=== PATIENT | female | born 1965 | race Caucasian/White ===

== ENCOUNTER 2016-07-06 17:00 | Emergency (ER) ==
[2016-07-06] MEDS ORDERED: MBX SOLUTION MT ONE (18:23)
[2016-07-06] MEDS ORDERED: TORADOL IM ONE (18:25)
[2016-07-06] MEDS ORDERED: PHENERGAN IM ONE (18:25)
--- NOTE | 2016-07-06 18:26 | PROVIDER DOCUMENTATION ---
HPI-General Adult - General Chief Complaint: UTI Symptoms Stated Complaint: UTI SX/BLISTERS ON MOUTH Time Seen by Provider: 07/06/16 18:17 Source: patient Allergies/Adverse Reactions: Patient Allergies Allergy/AdvReac Type Severity Reaction Status Date / Time Sulfa (Sulfonamide Allergy Severe ANAPHYLAXIS Verified 05/12/16 13:49 Antibiotics) [Sulfa(Sulfonamide Antibiotics)] Home Medications: Lisinopril 10 mg PO DAILY 01/09/16 Gabapentin [Neurontin] 100 mg PO QAM 06/21/16 Omeprazole [Prilosec] 20 mg PO DAILY@0700 06/25/16 - History of Present Illness -Gen Adult Nature of Presenting Problems: 51 y/o WF having multiple complaints. States she has generalized leg pain secondary to neuropahty, uti symptoms that have come back since the last time she was here, and her mouth hurting because her teeth are broken and cutting her and states she is abusing the medications by taking her medications more than prescribed. Requesting pain medications for her neuropathy. States her pain is so bad she vomits. States uti has been going on 4 weeks on and off with dysuria. States she was given medication on 06/28/16 and given antibiotics and has not finished it. Has appt on 07/10/16 with primary, and 07/13/16 with urology. Review of Systems - Adult - REVIEW OF SYSTEMS - ADULT Constitutional: reports: see HPI, fatique. denies: chills, fever Eyes: reports: no symptoms reported. denies: blurred vision, double vision, eye pain Ears, Nose, Mouth & Throat: reports: see HPI, ear pain (right), throat pain. denies: nose pain Cardiovascular: reports: no symptoms reported. denies: chest pain, palpitations Respiratory: reports: no symptoms reported. denies: cough, shortness of breath , wheezing Gastrointestinal: reports: see HPI, nausea. denies: abdominal pain, diarrhea, vomiting Genitourinary: reports: see HPI, dysuria, frequency, frequent UTI's, urgency Musculoskeletal: reports: see HPI, muscle aches. denies: bone pain, back pain Integumentary: reports: no symptoms reported. denies: rash Neurological: reports: no symptoms reported. denies: ataxia, dizziness/vertigo , headache/migraines Psychiatric: reports: no symptoms reported Endocrine: reports: no symptoms reported Hematologic/Lymphatic: reports: no symptoms reported Allergic/Immunologic: reports: no symptoms reported All Other Systems: Reviewed and Negative Past History - Adult - PAST MEDICAL HISTORY-ADULT Review of Records: reports: Old Records Reviewed, Nursing Assessment Review, Medications Reviewed Major Childhood Illnesses: reports: denies history Cardiovascular: reports: HTN, [place] Respiratory: reports: asthma, COPD Gastrointestinal: reports: GERD, inflammatory bowel disease, ulcer Obstetrical/Gynecological: reports: ovarian cysts Genitourinary: reports: chronic UTI's Musculoskeletal: reports: chronic pain, orthopedic injury Neurological: reports: stroke deficits, Seizures/Epilepsy Psychiatric: reports: bipolar Endocrine/Immune: reports: denies history Other Conditions: reports: denies history - PRIOR SURGERIES/PROCEDURES Surgical/Procedure History: reports: cholecystectomy, BTL, , hernia repair, back/neck (back ) - PRIOR HOSPITALIZATIONS Prior Hospitalizations: reports: none - IMMUNIZATION STATUS Childhood Immunizations: See Nurse Assessment Flu Vaccine: See Nurse Assessment - FAMILY HISTORY Family History: reviewed, not pertinent Physical Exam-General - PHYSICAL EXAM-ADULT Initial Vital Signs Reviewed: Yes - CONSTITUTIONAL General Appearance: appears well, alert, no apparent distress - EYES Eyes: PERRL/EOMI, pink conjunctivae - HEAD, EARS, NOSE, MOUTH & THROAT HENMT: normocephalic/atraumatic, moist mucous membranes, normal ENT inspection, TMs normal, pharynx normal, other (has ulcer on the left side of her tongue. This has been here on previous exams) - NECK Neck: non-tender, full range of motion, supple, normal inspection. negative: lymphadenopathy - RESPIRATORY Respiratory: chest non-tender, lungs clear, normal breath sounds, no pleuratic chest pain, no respiratory distress, no accessory muscle use. negative: respiratory distress, decreased breath sounds, accessory muscle use, crackles, rales, rhonchi, wheezing - CARDIOVASCULAR Cardiovascular: normal peripheral pulses, regular rate, rhythm, no edema - LYMPHATIC Lymphatic: no adenopathy - MUSCULOSKELETAL Extremity: other (wheel chair bound) - SKIN Integumentary: normal color, normal turgor, warm/dry - NEUROLOGIC Neurologic: grossly normal, no motor/sensory deficits - PSYCHIATRIC Psych/Mental Status: normal mood/affect, normal thought content, normal thought process, oriented x 3 Progress - PLAN OF CARE/RESULTS Progress/Plan/Lab Results: Last Cr. 0.9 Vital Signs Temp Pulse Resp BP Pulse Ox 07/06/16 17:17 97.8 F 92 H 18 143/93 100 Sulfa (Sulfonamide Antibiotics) [Sulfa(Sulfonamide Antibiotics)] Allergy (Severe , Verified 05/12/16 13:49) ANAPHYLAXIS closes throat Lisinopril 10 mg PO DAILY 01/09/16 Gabapentin [Neurontin] 100 mg PO QAM 06/21/16 Omeprazole [Prilosec] 20 mg PO DAILY@0700 06/25/16 Amoxicillin [Amoxil] 500 mg PO Q8HR #30 capsule 06/26/16 Laboratory 07/06/16 19:10 Urine Source CLEAN CATCH Urine Color YELLOW Urine Clarity SL. CLOUDY A Urine pH 7.0 Ur Specific [place] 1.005 Urine Protein NEGATIVE Urine Ketones 1+(Small) A Urine Blood NEGATIVE Urine Nitrite NEGATIVE Urine Bilirubin NEGATIVE Urine Urobilinogen NORMAL Urine Microscopic RBC Not Reportable Urine WBC 2+ A Urine Microscopic WBC 10-20 A Ur Epithelial Cells <10 Urine Bacteria 1+ Urine Glucose NEGATIVE Orders Category Date Time Status URINALYSIS PL W/POSS RFLX CULT [URINALYSIS] Stat Lab 07/06/16 19:10 Completed Diphenhydramine [Benadryl Liquid] Med 07/06/16 19:29 Discontinued 12.5 mg .ROUTE .STK-MED ONE Diphenhyramine/Al&mg Oh/Lido [Mbx Solution] Med 07/06/16 18:23 Discontinued 15 ml MT NOW ONE Ketorolac [Toradol] Med 07/06/16 18:25 Discontinued 15 mg IM NOW ONE Lidocaine 2% Viscous [Xylocaine 2% Viscous] Med 07/06/16 19:29 Discontinued 15 ml .ROUTE .STK-MED ONE Mag Hydrox/Al Hydrox/Simeth [Maalox Plus Liquid] Med 07/06/16 19:29 Discontinued 30 ml .ROUTE .STK-MED ONE Promethazine [Phenergan] Med 07/06/16 18:25 Discontinued 25 mg IM NOW ONE Departure - Departure Time of Disposition Order: 19:51 DIAGNOSIS: Prescription refill Urinary tract infection Qualifiers: Urinary tract infection type: acute cystitis Hematuria presence: without hematuria Qualified Code(s): N30.00 - Acute cystitis without hematuria Chronic pain Qualifiers: Chronic pain type: chronic pain syndrome Qualified Code(s): G89.4 - Chronic pain syndrome Disposition: HOME 01 Certified Medical Emergency: Emergent Condition: Stable Additional Instructions: Follow up with your primary care physician ED Follow Up Instructions: You have been treated by a care provider in the Emergency Department. These instructions are being provided to you so you can have an understanding of how to care for yourself upon discharge. Upon discharge from the Emergency Department, you are responsible for making arrangements for follow-up care by a physician of your choice. Take all prescribed medications as directed. Return to the Emergency Department immediately for any new or worsening symptoms. You may call the Physician Referral phone number at [phone] to obtain a list of Physicians who are taking new patients. Prescriptions: Nitrofurantoin Monohyd/M-Cryst [Macrobid 100 mg Capsule] 100 mg PO BID #14 capsule Gabapentin [Neurontin] 100 mg PO QAM #14 capsule Promethazine [Phenergan] 25 mg PO Q6H PRN PRN #20 tablet PRN Reason: Nausea Montelukast Sodium [Singulair] 10 mg PO DAILY #14 tablet Albuterol Sulfate Inhaler [Ventolin Hfa] 2 puff INH Q6H PRN PRN #1 inhaler PRN Reason: Wheezing Attestation - Physician/ Mid-level Attestation Patient care was provided by Mid-level provider ([employer]/PA):: Yes Mid-level provider:: Cyndy Bhakta Mid-level documentation review:: The Mid-level provider documentation, treatment plan and medical decision making was reviewed by the physician who agrees with all treatment and medical decision making by the MLP.
[2016-07-06] MEDS ORDERED: BENADRYL LIQUID ONE (19:29)
[2016-07-06] MEDS ORDERED: MAALOX PLUS LIQUID ONE (19:29)
[2016-07-06] MEDS ORDERED: XYLOCAINE 2% VISCOUS ONE (19:29)
[2016-07-06 19:30] LABS: URINE SOURCE CLEAN CATCH
[2016-07-06 19:49] LABS: BILIRUBIN URINE NEGATIVE (NEGATIVE); BLOOD URINE NEGATIVE (NEGATIVE); CLARITY SL. CLOUDY (CLEAR); COLOR YELLOW; GLUCOSE URINE NEGATIVE (NEGATIVE); LEUKOCYTES URINE 2+ (NEGATIVE); NITRITE URINE NEGATIVE (NEGATIVE); PROTEIN URINE NEGATIVE (NEGATIVE); SP GRAVITY URINE 1.005; UROBILINOGEN URINE NORMAL
[2016-07-06 19:50] LABS: URINE CULTURE PL NEEDED? YES; URINE EPITHELIAL CELLS <10 /HPF (<10)
[2016-07-06 21:15] VITALS: BP 142/89
== END 2016-07-06 20:30 | disposition home or self-care (01) ==
LOC: P.ED 17:00
DX: N30.00 Acute cystitis without hematuria (principal); G89.4 Chronic pain syndrome; Z76.0 Encounter for issue of repeat prescription; R53.83 Other fatigue; H92.01 Otalgia, right ear; R07.0 Pain in throat; R11.0 Nausea; R30.0 Dysuria; R35.0 Frequency of micturition; R39.15 Urgency of urination; K14.0 Glossitis; Z87.440 Personal history of urinary (tract) infections; M79.1 Myalgia; I10 Essential (primary) hypertension; I25.2 Old myocardial infarction; J44.9 Chronic obstructive pulmonary disease, unspecified; K21.9 Gastro-esophageal reflux disease without esophagitis; Z87.42 Personal history of other diseases of the female genital tract; R56.9 Unspecified convulsions; F31.9 Bipolar disorder, unspecified; Z99.3 Dependence on wheelchair; I69.90 Unspecified sequelae of unspecified cerebrovascular disease; Z79.899 Other long term (current) drug therapy
CPT/HCPCS: 81001; 87088; 96372; J1885; J2550

== ENCOUNTER 2016-08-10 17:45 | Inpatient (IN) ==
--- NOTE | 2016-08-10 19:13 | PROVIDER DOCUMENTATION ---
HPI-General Adult - General Chief Complaint: Shortness of Breath Time Seen by Provider: 08/10/16 18:50 Source: patient Allergies/Adverse Reactions: Patient Allergies Allergy/AdvReac Type Severity Reaction Status Date / Time Sulfa (Sulfonamide Allergy Severe ANAPHYLAXIS Verified 07/30/16 16:17 Antibiotics) [Sulfa(Sulfonamide Antibiotics)] Home Medications: Home Medication List Medication Instructions Recorded Confirmed Last Taken Type Lisinopril 10 mg PO QAM 01/09/16 07/27/16 07/27/16 09:00 History Albuterol Sulfate Inhaler 2 puff INH Q6H PRN PRN #1 inhaler 07/06/16 07/27/16 22:00 Rx [Ventolin Hfa] Gabapentin [Neurontin] 800 mg PO TID 07/27/16 07/27/16 07/27/16 09:00 History Ibuprofen [Motrin] 800 mg PO Q8H PRN PRN #20 tablet 07/27/16 Unknown Rx Ipratropium [place] Inhaler 2 puff INH BID 07/27/16 07/27/16 Unknown History [Atrovent Hfa] Omeprazole [Prilosec] 20 mg PO DAILY@0700 #20 capsule 07/27/16 Unknown Rx Omeprazole 40 mg PO DAILY #30 capsule. 07/30/16 Unknown Rx Ondansetron Odt [Zofran 8Mg Odt] 8 mg PO Q8H PRN PRN #20 tablet 07/30/16 Unknown Rx - History of Present Illness -Gen Adult Nature of Presenting Problems: 51 year old F presents to the ED via EMS with a cc of cough, congestion, hoarseness, and shortness of breath x4 days. Pt states that she is coughing up yellow/brown sputum. PT states she began having ABD pain, nausea, and vomiting today. PT states that the last BM she had was 2 weeks ago. Location of Pain/Injury: reports: abdomen Pain Radiation: reports: no radiation Quality of Pain: reports: aching Severity: reports: mild Onset/Duration: reports: 4 days ago Timing: reports: still present Context/Activities at Onset: reports: none Modifying Factors: improves with: nothing Associated Symptoms: reports: constipation, cough, EENT symptoms, sinus congestion/drainage, nausea, shortness of breath, vomiting Similar Symptoms Previously?: No Recently seen or treated by another doctor?: No Review of Systems - Adult - REVIEW OF SYSTEMS - ADULT Constitutional: denies: chills, fever Eyes: reports: no symptoms reported Ears, Nose, Mouth & Throat: reports: sinus problem, hoarseness, throat pain. denies: ear pain Cardiovascular: denies: chest pain, palpitations Respiratory: reports: cough, excessive sputum production, shortness of breath Gastrointestinal: reports: abdominal pain, constipation, nausea, vomiting Genitourinary: denies: dysuria, hematuria Musculoskeletal: denies: muscle aches, muscle weakness Integumentary: denies: skin sores/ulcer, skin thickening Neurological: denies: dizziness/vertigo, headache/migraines Psychiatric: reports: no symptoms reported Endocrine: reports: no symptoms reported Hematologic/Lymphatic: reports: no symptoms reported Allergic/Immunologic: reports: no symptoms reported All Other Systems: Reviewed and Negative Past History - Adult - PAST MEDICAL HISTORY-ADULT Review of Records: reports: Nursing Assessment Review, Medications Reviewed Major Childhood Illnesses: reports: denies history Cardiovascular: reports: HTN, [place] Respiratory: reports: asthma, COPD Gastrointestinal: reports: GERD, inflammatory bowel disease, ulcer Obstetrical/Gynecological: reports: ovarian cysts Genitourinary: reports: chronic UTI's Musculoskeletal: reports: chronic pain, orthopedic injury Neurological: reports: CVA, stroke deficits (left arm), Seizures/Epilepsy Psychiatric: reports: bipolar, depression, ptsd, schizophrenia - PRIOR SURGERIES/PROCEDURES Surgical/Procedure History: reports: cholecystectomy, BTL, , hernia repair, back/neck (back ), other (brain sx) - IMMUNIZATION STATUS Childhood Immunizations: See Nurse Assessment Flu Vaccine: See Nurse Assessment - FAMILY HISTORY Family History: reviewed, not pertinent - SOCIAL HISTORY Smoking: cigarettes, greater than 1 pack/day Provider spent 3-5 mins advising pt. on dangers of tobacco.: Discussed manners to quit use, and f/u contacts for add'l counseling. Substance Use: none presently/history of abuse Alcohol Use Frequency: never Physical Exam-General - PHYSICAL EXAM-ADULT Initial Vital Signs Reviewed: Yes - CONSTITUTIONAL General Appearance: appears well, alert, no apparent distress - RESPIRATORY Respiratory: chest non-tender, decreased breath sounds (generalized), rhonchi ( right lower lobe) - CARDIOVASCULAR Cardiovascular: normal peripheral pulses, regular rate, rhythm, no edema - GASTROINTESTINAL (ABDOMEN) Abdominal Exam: soft, tenderness (RLQ) - MUSCULOSKELETAL Extremity: normal inspection - SKIN Integumentary: normal color, normal turgor, warm/dry - PSYCHIATRIC Psych/Mental Status: normal mood/affect, normal thought content, normal thought process, oriented x 3 Progress - PLAN OF CARE/RESULTS Progress/Plan/Lab Results: plan of care: imaging, labs, medications, EKG Orders Category Date Time Status Orthostatic Vital Signs NOW Care 08/10/16 19:16 Active Saline Loc DIRECTED Care 08/10/16 19:13 Active NPO Diet 08/10/16 19:13 Active ABDOMEN/PELVIS W/O CONTRAST [CT] Stat Exams 08/10/16 19:13 Taken CHEST-2 VIEWS [RAD] Stat Exams 08/10/16 19:14 Taken AMYLASE [CHEM] Stat Lab 08/10/16 19:45 Completed CBC WITH ELECTRONIC DIFF [HEME] Stat Lab 08/10/16 19:45 Completed CK PROFILE [SP CHEM] Stat Lab 08/10/16 19:45 Completed COMPREHENSIVE METABOLIC PANEL [CHEM] Stat Lab 08/10/16 19:45 Completed LIPASE [CHEM] Stat Lab 08/10/16 19:45 Completed TROPONIN T Stat Lab 08/10/16 19:[address] W/POSS RFLX CULT [URINALYSIS] Stat Lab 08/10/16 21:40 Completed URINE CULTURE [RM] Routine Lab 08/10/16 22:[address]UG SCREEN [address] Stat Lab 08/10/16 21:40 Completed 0.9% Sodium Chloride Inj [Ns] 1,000 ml Med 08/10/16 19:14 Discontinued IV 999 mls/hr Hydromorphone [Dilaudid] Med 08/10/16 19:14 Discontinued 1 mg IV NOW ONE Ondansetron [Zofran] Med 08/10/16 19:14 Discontinued 4 mg IV NOW ONE Pantoprazole [Protonix] Med 08/10/16 19:14 Discontinued 40 mg IV NOW ONE Sodium Chloride 0.9% Med 08/10/16 19:16 Discontinued 10 ml INJ NOW ONE EKG [EKG] Stat Ther 08/10/16 18:53 Ordered Laboratory Tests 08/10/16 08/10/16 08/10/16 19:45 19:45 19:45 WBC 17.10 H RBC 3.65 L Hgb 8.6 L Hct 27.7 L MCV 75.9 L MCH 23.6 L MCHC 31.0 L RDW Std Deviation 19.6 H Plt Count 461 H MPV 9.9 Immature Gran % (Auto) 0.4 Neut % (Auto) 91.0 H Lymph % (Auto) 3.1 L [place] % (Auto) 5.2 Eos % (Auto) 0.2 Baso % (Auto) 0.1 Immature Gran # (Auto) 0.07 H Neut # (Auto) 15.55 H Lymph # (Auto) 0.53 L [place] # (Auto) 0.89 H Eos # (Auto) 0.04 Baso # (Auto) 0.02 Sodium 125 L Potassium 2.8 L Chloride 93 L Carbon Dioxide 10 L Anion Gap 23 BUN 17 Creatinine 2.7 H Estimated GFR/1.73 m2 19 BUN/Creatinine Ratio 6 Glucose 125 H Calculated Osmolality 255 Calcium 8.7 L Total Bilirubin 0.20 AST 357 H ALT 590 H Alkaline Phosphatase 124 H Creatine Kinase 75 Troponin T Total Protein 6.8 Albumin 3.7 Globulin 3.0 Albumin/Globulin Ratio 1.0 Amylase 28 Lipase 11 L Urine Source Urine Color Urine Clarity Urine pH Ur Specific [place] Urine Protein Urine Ketones Urine Blood Urine Nitrite Urine Bilirubin Urine Urobilinogen Urine Microscopic RBC Urine WBC Urine Microscopic WBC Ur Epithelial Cells Urine Bacteria Urine Glucose Urine Opiates Screen Ur Oxycodone Screen Urine Methadone Screen Ur Barbituates Screen Ur Tricyclics Screen Ur Phencyclidine Scrn Ur Amphetamines Screen U Methamphetamines Scrn Urine MDMA Screen U Benzodiazepines Scrn Urine Cocaine Screen U Cannabinoids Screen 08/10/16 08/10/16 08/10/16 19:45 21:40 21:40 WBC RBC Hgb Hct MCV MCH MCHC RDW Std Deviation Plt Count MPV Immature Gran % (Auto) Neut % (Auto) Lymph % (Auto) [place] % (Auto) Eos % (Auto) Baso % (Auto) Immature Gran # (Auto) Neut # (Auto) Lymph # (Auto) [place] # (Auto) Eos # (Auto) Baso # (Auto) Sodium Potassium Chloride Carbon Dioxide Anion Gap BUN Creatinine Estimated GFR/1.73 m2 BUN/Creatinine Ratio Glucose Calculated Osmolality Calcium Total Bilirubin AST ALT Alkaline Phosphatase Creatine Kinase Troponin T < 0.010 Total Protein Albumin Globulin Albumin/Globulin Ratio Amylase Lipase Urine Source CATH Urine Color YELLOW Urine Clarity CLEAR Urine pH 5.0 Ur Specific [place] 1.010 Urine Protein TRACE A Urine Ketones NEGATIVE Urine Blood TRACE Urine Nitrite POSITIVE A Urine Bilirubin NEGATIVE Urine Urobilinogen NORMAL Urine Microscopic RBC <10 Urine WBC TRACE A Urine Microscopic WBC 10-20 A Ur Epithelial Cells <10 Urine Bacteria 3+ Urine Glucose NEGATIVE Urine Opiates Screen NONE DETECTED Ur Oxycodone Screen NONE DETECTED Urine Methadone Screen NONE DETECTED Ur Barbituates Screen NONE DETECTED Ur Tricyclics Screen PRESUMPTIVE POSITIVE A Ur Phencyclidine Scrn NONE DETECTED Ur Amphetamines Screen NONE DETECTED U Methamphetamines Scrn NONE DETECTED Urine MDMA Screen NONE DETECTED U Benzodiazepines Scrn NONE DETECTED Urine Cocaine Screen PRESUMPTIVE POSITIVE A U Cannabinoids Screen NONE DETECTED Vital Signs - 24 hr 08/10/16 08/10/16 08/10/16 17:47 19:58 21:50 Pulse Rate 104 H Pulse Rate [ 94 H 102 H Sitting] Pulse Rate [ 100 H 107 H Standing] Pulse Rate [ 91 H 100 H Supine] Respiratory 22 Rate Blood Pressure 101/68 Blood Pressure 107/51 91/64 [Sitting] Blood Pressure 89/69 100/74 [Standing] Blood Pressure 92/71 162/142 [Supine] O2 Sat by Pulse 100 Oximetry Pt given results. Pt will be admitted to the [facility]. PT in agreement with plan of care. - EKG 1 Time of EKG reading by physician:: 19:04 EKG Read and Signed by:: Jose Juan Acevedo EKG Interpretation (*Must complete 3 of following elements*): Abnormal Rate: 95 Rhythm: NSR [place]: normal Comments: prolonged QT - XRAY 1 XRAY Study: Chest Impression: Abnormal XRAY Interpretation: left sided pneumonia: Dr. Acevedo-NADIYA DAVID - CT/MRI 1 CT Study: Abdomen Impression: Abnormal (colonic ileus of proximal-mid colon, reason uncertain. no inflammatory changes. Otherwise NAD: Dr. Jerry) - CONSULTS/PCP/HOSPITALIST Notification #1 *Consult/PCP/Hospitalist*: Dr. Henson-hospitalist [place] Time Discussed: 22:20 Consult Disposition: Admit Departure - Departure Time of Disposition Order: 22:23 DIAGNOSIS: Pyelonephritis, Acute UTI, Hyponatremia, Abnormal laboratory test, Ileus Pneumonia Qualifiers: Pneumonia type: due to unspecified organism Laterality: left Lung location: lower lobe of lung Qualified Code(s): J18.1 - Lobar pneumonia, unspecified organism Abdominal pain Qualifiers: Abdominal location: generalized Qualified Code(s): R10.84 - Generalized abdominal pain Disposition: ADMITTED INPATIENT 09 Certified Medical Emergency: Emergent Condition: Stable Attestation - Scribe Verification/Attestation Scribe:: Raisa Mariscal Acting as Scribe for:: Jose Juan Acevedo Scribe documention review:: This chart was documented by a scribe and accurately reflects the service the provider performed and the decisions made by the provider. Physician Attestation - Physician Attestation I, the provider, attest to the following statement:: Jose Juan Acevedo Physician documentation Attestation:: This documentation recorded by the scribe accurately reflects the service I personally performed and the decisions made by me.
[2016-08-10] MEDS ORDERED: DILAUDID IV ONE (19:14)
[2016-08-10] MEDS ORDERED: PROTONIX IV ONE (19:14)
[2016-08-10] MEDS ORDERED: NS 1,000 ML IV ONE ×2 (19:14→22:26)
[2016-08-10] MEDS ORDERED: ZOFRAN IV ONE (19:14)
[2016-08-10] MEDS ORDERED: SODIUM CHLORIDE 0.9% INJ ONE (19:16)
[2016-08-10 20:01] LABS: BASO% 0.1 % (0.0-0.8); EOS# 0.04 X1000 (0.0-0.7); EOS% 0.2 % (0.0-10.0); HEMATOCRIT 27.7 % (37.0-47.0); HEMOGLOBIN 8.6 g/dL (12.0-16.0); IMM GRAN# 0.07 X1000 (0.0-0.04); IMM GRAN% 0.4 % (0.0-0.5); LYMPH# 0.53 X1000 (1.2-3.4); LYMPH% 3.1 % (20.5-51.1); MANUAL DIFF NEEDED? NO; MCH 23.6 PG (27-31); MCV 75.9 FL (81-99); MONO# 0.89 X1000 (0.11-0.59); MONO% 5.2 % (1.7-9.3); MPV 9.9 FL (7.4-10.4); PLT 461 X1000 (130-400); RBC 3.65 XMIL (4.2-5.4)
[2016-08-10 20:34] LABS: ALBUMIN 3.7 g/dL (3.5-5.0); CALCIUM 8.7 mg/dL (8.8-10.2); POTASSIUM 2.8 mmol/L (3.5-5.1); TOTAL BILIRUBIN 0.2 mg/dL (0.20-1.00); TOTAL PROTEIN 6.8 g/dL (6.3-8.3)
[2016-08-10 21:57] LABS: URINE SOURCE CATH
[2016-08-10 22:02] LABS: BILIRUBIN URINE NEGATIVE (NEGATIVE); BLOOD URINE TRACE (NEGATIVE); GLUCOSE URINE NEGATIVE (NEGATIVE); LEUKOCYTES URINE TRACE (NEGATIVE); NITRITE URINE POSITIVE (NEGATIVE); PROTEIN URINE TRACE mg/dL (NEGATIVE); UROBILINOGEN URINE NORMAL
[2016-08-10 22:03] LABS: CLARITY CLEAR (CLEAR); COLOR YELLOW
[2016-08-10 22:08] LABS: URINE CULTURE PL NEEDED? YES; URINE EPITHELIAL CELLS <10 /HPF (<10); URINE RBC <10 /HPF (<10)
[2016-08-10 22:09] LABS: UR AMPHETAMINES QUAL NONE DETECTED (NONE DETECT); UR BARBITUATES QUAL NONE DETECTED (NONE DETECT); UR BENZODIAZEPIN QUAL NONE DETECTED (NONE DETECT); UR CANNABINOIDS QUAL NONE DETECTED (NONE DETECT); UR COCAINE QUAL PRESUMPTIVE POSITIVE (NONE DETECT); UR MDMA QUAL NONE DETECTED (NONE DETECT); UR METHADONE QUAL NONE DETECTED (NONE DETECT); UR METHAMPHETAMINE QUAL NONE DETECTED (NONE DETECT); UR OPIATES QUAL NONE DETECTED (NONE DETECT); UR OXYCODONE QUAL NONE DETECTED (NONE DETECT); UR PCP QUAL NONE DETECTED (NONE DETECT); UR TCA QUAL PRESUMPTIVE POSITIVE (NONE DETECT)
[2016-08-10] MEDS ORDERED: LEVAQUIN 500 MG/D5W 100 ML IV ONE (22:26)
[2016-08-10] MEDS ORDERED: ROCEPHIN 1 GM/NS 50 ML IV ONE (22:26)
[2016-08-10] MEDS ORDERED: TYLENOL PO PRN (22:27)
--- NOTE | 2016-08-10 22:50 | Diag Imaging Result Document ---
PROCEDURE NAME: ABDOMEN/PELVIS W/O CONTRAST - 08/10/2016 CT ABDOMEN AND PELVIS: COMPARISON: 07/02/2015. FINDINGS: No radiodense renal stones or urinary obstruction. There is diffuse distention of the colon with gas and fluid and a small amount of stool. This primarily affects the proximal colon from the cecum through the descending colon. No significant wall thickening. No free air or fluid collections. The small bowel is all collapsed. Urinary bladder, uterus, and rectum are normal. Bony structures are intact. IMPRESSION: Findings favoring a colonic ileus of the proximal colon. The reason is unclear.
--- NOTE | 2016-08-11 02:31 | EKG Report ---
Test Performed on : 08/10/2016 7:04:37 PM Test Reason : CP Blood Pressure : / mmHG Vent. Rate : 095 BPM Atrial Rate : 095 BPM P-R Int : 182 ms QRS Dur : 094 ms QT Int : 408 ms P-R-T Axes : 044 033 058 degrees QTc Int : 512 ms Normal sinus rhythm. Prolonged QT Abnormal ECG When compared with ECG of 24-JUN-2016 23:53, Nonspecific T wave abnormality no longer evident in Anterior leads QT has lengthened Unconfirmed Result
[2016-08-11] MEDS: BLISTEX MEDICATED BERRY LIP BALM TOP PRN (03:24)
[2016-08-11] MEDS: DUONEB (A & A) INH SCH ×6 (04:01→23:25)
[2016-08-11] MEDS ORDERED: NS 1,000 ML IV SCH (08:45)
[2016-08-11] MEDS: ZOFRAN IV PRN (10:00)
[2016-08-11] MEDS ORDERED: ZITHROMAX 500 MG/NS 250 ML IV SCH (11:15)
[2016-08-11] MEDS: NS 1,000 ML IV SCH ×2 (11:40→22:49)
--- NOTE | 2016-08-11 12:07 | Diag Imaging Result Document ---
PROCEDURE NAME: CHEST-2 VIEWS - 08/10/2016 CHEST X-RAY, 2 VIEWS: COMPARISON: 01/09/2016. FINDINGS: Lung volumes are severely low with some central crowding. No obvious infiltrates. Heart size is normal. IMPRESSION: Low lung volumes.
--- NOTE | 2016-08-11 12:12 | Diag Imaging Result Document ---
PROCEDURE NAME: JONATHAN ABDOMEN - 08/11/2016 X-RAY ABDOMEN: COMPARISON: 07/30/2016. FINDINGS: There is a nasogastric tube in good position in the left upper quadrant. There is diffuse gas dilation of the colon, suggesting ileus. No small bowel obstruction or free air. IMPRESSION: Colonic ileus. Good nasogastric tube placement.
[2016-08-11 12:20] LABS: HEMATOCRIT 21.2 % (37.0-47.0); HEMOGLOBIN 6.5 g/dL (12.0-16.0); MCHC 30.7 g/dL (33-37); MCV 75.2 FL (81-99); MPV 10.1 FL (7.4-10.4); RBC 2.82 XMIL (4.2-5.4)
[2016-08-11 13:21] LABS: AGAP 18; ALBUMIN 2.6 g/dL (3.5-5.0); ALKALINE PHOSPHATASE 103 U/L (32-104); BUN 20 mg/dL (8-22); CALCIUM 7.1 mg/dL (8.8-10.2); CHLORIDE 103 mmol/L (98-107); COSMO 263; GOT 100 U/L (10-30); GPT 347 U/L (10-36); MAGNESIUM 2.4 mg/dL (1.5-2.7); POTASSIUM 2.5 mmol/L (3.5-5.1); SODIUM 130 mmol/L (136-145); TCO2 9 mmol/L (25-35); TOTAL BILIRUBIN < 0.15 mg/dL (0.20-1.00); TOTAL PROTEIN 4.6 g/dL (6.3-8.3)
[2016-08-11] MEDS: POTASSIUM CHLORIDE 20 MEQ/SWI 100 ML IV SCH ×2 (14:20→16:13)
--- NOTE | 2016-08-11 14:35 | HISTORY AND PHYSICAL ---
CHIEF COMPLAINT: Shortness of breath, nausea and vomiting for 3 days. HISTORY OF PRESENT ILLNESS: This is a 51-year-old female with a prior history of hypertension, COPD, reflux, cocaine abuse, and medical noncompliance. She presented to the emergency room complaining of 3 days of nausea and vomiting, cough and congestion. She did state that during this time that she developed a productive cough with yellow and brown sputum. She complained of abdominal pain, described it as an aching type pain. She denied any hematemesis, black or bloody stools. CT of the abdomen and pelvis revealed findings colonic of the proximal colon. She was found have a white count of 17, with a sodium of 125, a potassium 2.8, creatinine of 2.7, as well as a drug screen positive for cocaine. In the emergency room she was given 2 L of saline bolus, Dilaudid, Protonix for pain relief which she documented did relieve her pain, as well as Levaquin and Rocephin. Admitted for further evaluation and treatment. PAST MEDICAL HISTORY: 1. Cocaine use. 2. Bipolar disorder. 3. Hypertension. 4. Chronic obstructive pulmonary disease. 5. Gastroesophageal reflux disease. 6. Prior history of cerebrovascular accident. 7. Medical noncompliance. 8. Tobacco use. PAST SURGICAL HISTORY: Cholecystectomy, , back surgery, and hernia repair. SOCIAL HISTORY: She lives alone. She smokes a pack a day. She uses cocaine daily. ALLERGIES: Bactrim and sulfa which cause anaphylaxis. HOME MEDICATIONS: A list will be obtained. REVIEW OF SYSTEMS: A 14 point review of systems is discussed with the patient with pertinent positives stated in HPI. She denied any chest pain, palpitations, dizziness, syncope, black or bloody vomitus, black or bloody stools, diarrhea, constipation, hematuria, dysuria. PHYSICAL EXAMINATION: GENERAL: This is a 51-year-old female who is lying in the bed with no distress. VITAL SIGNS: Blood pressure is 83/53, with a heart rate of 98, respirations are 19, temperature is 98.4 degrees, with room air saturations 98%. HEENT: Head is normocephalic, atraumatic. Pupils equal, round, react to light. EOMS are intact. Sclerae are anicteric. Mucous membranes are moist. NECK: Supple with trachea midline. CARDIOVASCULAR: Regular rate and rhythm. S1 and S2 appreciated. PULMONARY: She does have some rhonchi scattered throughout with decreased breath sounds. No increased work of breathing is noted. GASTROINTESTINAL: Abdomen is soft, nontender, with bowel sounds in all 4 quadrants. NG tube is intact. MUSCULOSKELETAL: Good range of motion of joints. NEUROLOGIC: She is alert and oriented x3. EXTREMITIES: No clubbing, cyanosis, or edema. SKIN: Warm and dry. LABS: CBC, CMP, magnesium are pending. ASSESSMENT: 1. Colonic ileus. 2. Left lower lobe pneumonia. 3. Urinary tract infection with possible pyelonephritis. 4. Hyponatremia. 5. Leukocytosis. 6. Hypokalemia. 7. Acute kidney injury. 8. Elevated liver function tests. 9. Cocaine use positive on drug screen. 10. Hypertension. 11. History of chronic obstructive pulmonary disease with continued tobacco use. 12. Bipolar disorder. PLAN: 1. She will be admitted to ICU and placed on telemetry. We will give supplemental oxygen with gentle hydration. We will trend labs. Urine culture was obtained in the emergency room. If blood cultures were not obtained they will be drawn. We will continue antibiotic coverage. We will identify home medications and continue as appropriate. We will check a KUB. The patient does have bowel sounds. She is passing gas. Her abdomen is nontender. If there is no obstruction we will allow her to have liquids in advance. 2. I did talk to the patient, discussed smoking cessation with perils of continued smoking as well as offered ways to assist her to stop, and at this time she states she has no intention of stopping. 3. We did discuss cessation of cocaine and she states she has no intention of stopping. She is on DuoNeb q.4 hours, we will add q.2 hours p.r.n., and follow. Dictated by PREETI Gaines for Darron Henson MD
[2016-08-11] MEDS ORDERED: NS 500 ML IV ONE (16:27)
[2016-08-11 19:47] LABS: HEMATOCRIT 27.4 % (37.0-47.0); MCH 24.6 PG (27-31); MCHC 32.8 g/dL (33-37); MCV 74.9 FL (81-99); MPV 9.9 FL (7.4-10.4); RBC 3.66 XMIL (4.2-5.4)
[2016-08-11 20:26] LABS: ALBUMIN 2.4 g/dL (3.5-5.0); CALCIUM 7.1 mg/dL (8.8-10.2); POTASSIUM 2.6 mmol/L (3.5-5.1); TOTAL BILIRUBIN 0.3 mg/dL (0.20-1.00); TOTAL PROTEIN 5.7 g/dL (6.3-8.3)
[2016-08-11] MEDS ORDERED: LEVAQUIN 500 MG/D5W 100 ML IV SCH (23:00)
[2016-08-12] MEDS: DUONEB (A & A) INH SCH ×6 (03:14→23:37)
[2016-08-12] MEDS: MORPHINE IV PRN ×4 (03:29→21:14)
[2016-08-12] MEDS: NS 1,000 ML IV SCH (07:45)
[2016-08-12 08:18] LABS: HEMATOCRIT 24.1 % (37.0-47.0); HEMOGLOBIN 7.9 g/dL (12.0-16.0); MCH 24.5 PG (27-31); MCHC 32.8 g/dL (33-37); MCV 74.6 FL (81-99); MPV 9.8 FL (7.4-10.4); RBC 3.23 XMIL (4.2-5.4)
[2016-08-12 08:30] LABS: ALBUMIN 2.4 g/dL (3.5-5.0); POTASSIUM 2.8 mmol/L (3.5-5.1); TOTAL BILIRUBIN 0.26 mg/dL (0.20-1.00); TOTAL PROTEIN 4.9 g/dL (6.3-8.3)
[2016-08-12 08:41] LABS: CALCIUM 6.6 mg/dL (8.8-10.2)
[2016-08-12] MEDS: POTASSIUM CHLORIDE 20 MEQ/SWI 100 ML IV SCH ×4 (09:08→19:25)
[2016-08-12 09:40] LABS: ALLEN TEST YES; BLOOD TYPE ARTERIAL; DRAW SITE L RADIAL; METHB 1.6 % (0.0-1.5); O2(CT) 9.9 mL/dL (15.0-23.0); PO2(98.6) 52 mmHg (60-100); SAMPLE BLOOD; SAO2 87.6 % (95.0-100.0); THB 8.1 g/dL (11.5-17.4); pH(98.6) 7.31 (7.35-7.45)
[2016-08-12 09:41] LABS: MODALITY ROOM AIR
[2016-08-12 09:42] LABS: PCO2(98.6) 19 mmHg (35-45)
[2016-08-12 09:52] LABS: ACETONE SERUM NEGATIVE (NEGATIVE)
[2016-08-12 09:54] LABS: IRON SATURATION 5 %; TIBC 189 ug/dL
[2016-08-12 09:57] LABS: TOTAL IRON 9 ug/dL (49-151); UNBOUND IRON 180 ug/dL (112-346)
--- NOTE | 2016-08-12 10:12 | Diag Imaging Result Document ---
PROCEDURE NAME: CHEST-PORTABLE - 08/12/2016 PORTABLE CHEST X-RAY, 08/12/2016: COMPARISON: 08/10/2016. FINDINGS: There is a nasogastric tube with the tip in the stomach. There are dense bilateral infiltrates, right greater than left. Heart size is probably top normal. IMPRESSION: 1. Good nasogastric tube placement. 2. Dense bilateral infiltrates.
[2016-08-12] MEDS ORDERED: VANCOMYCIN IV PER PHARMACY MISC SCH (10:15)
[2016-08-12 10:25] LABS: INR 1.2; PROTIME 12.7 Seconds (9.2-11.7)
[2016-08-12] MEDS ORDERED: CALCIUM GLUCONATE 2 GM in NS 100 ML IV ONE (10:30)
[2016-08-12 11:11] LABS: ACETAMINOPHEN < 1.2 ug/mL (10-30)
[2016-08-12] MEDS: SODIUM BICARBONATE 8.4% 150 MEQ in D5W 1,000 ML IV SCH (11:34)
--- NOTE | 2016-08-12 12:57 | PROGRESS NOTE ---
DATE: 08/12/2016 SUBJECTIVE: This morning, Ms. Bernard referred to be having a lot of pain in her abdomen. Briefly Ms. Bernard was transferred from [facility] to this campus after presenting with generalized abdominal pain, shortness of breath, nausea, and vomiting. The patient was evaluated over there. A CT scan of the abdomen and pelvis which was done showed colonic ileus of the proximal colon and etiology was unclear. She was brought in for further higher medical care. Of note the patient did have blood pressures running in the low 90s and even in the 80s to 60s for some time. OBJECTIVE: Vital signs: Now blood pressure is 117/77, pulse of 105, respirations 20, temperature is 97.6 degrees. General: Ms. Bernard is a 51-year-old female. She was in bed. She was slightly tachypneic. HEENT: Mucosa slightly dry. Anicteric. Acyanotic. Patient has very poor dentition. Neck: Supple. Chest: Air entry is bilaterally reduced. There are a few bibasilar crepitations. Cardiovascular: Tachycardic but no murmur. No rubs. No gallops. Abdomen: Soft. Generally distended. Bowel sounds are decreased. I did not appreciate any hepatosplenomegaly. Extremities: No pedal edema. Central Nervous System: Patient is alert, seems to be oriented to person and to place and time. There is not any focal neurological deficit. LABORATORY DATA: WBC is 8.55, hemoglobin is 7.9, platelet count of 74.6. Sodium is 137, potassium is 2.8, chloride is 113, bicarb is 10 with a gap of 14, creatinine is 1.2, calcium is 6.6. AST is down to 43, ALT is 231, alkaline phosphatase of 106. UDS was positive for tricyclics and cocaine. IMAGING STUDIES: 1. CT scan of the abdomen and pelvis showed colonic ileus of the proximal colon. 2. Chest x-ray which was done on presentation showed low lung volumes. 3. An abdominal x-ray done this morning shows colonic ileus. ASSESSMENT: Ms. Bernard is a 51-year-old, female who seems to be drug dependent with polysubstance abuse. The patient presented with abdominal pain to [facility] and was transferred over here because of being critically sick. 1. Abdominal pain with colonic distention, unsure the etiology. With the level of the acidosis that the patient has, I am kind of suspicious for an ischemic colitis. We will consult Surgery to evaluate the patient as well. 2. Microcytic anemia. Hemoglobin and hematocrit continued to worsen. Patient was transfused 1 PRBC and will wait to do iron studies on pre transfusion sample to see what is her iron reserves. 3. High anion gap metabolic acidosis on presentation, unclear of the source. We are now going to do the workup for this, however, the gap is now closed I guess because she has been given normal saline. She is now still acidotic by no gap. We are therefore going to switch the fluid to D5 with bicarbonate . 4. Acute kidney injury secondary to dehydration. 5. Hypotension on presentation. The patient did run multiple numbers being hypotensive in [facility]. I think some of it could be just septic versus colonic fluid sequestration (3rd spacing) versus dehydration. We are going to be addressing each one of these possibilities. 6. Transaminitis, etiology is unclear. I think probably there is an ischemic component to this. Will continue trending the numbers. GENERAL PLAN: I have stopped the azithromycin and the levofloxacin and put her on Zosyn for broader coverage and also anaerobe coverage as well. We are going to consult surgery to review the imaging of the abdomen to make sure there is not any surgical abdomen. The patient will also be seen by GI. I have ordered an NG tube to be placed for GI decompression. Patient's numbers look very critical. We are going to be reviewing her later on today and make further recommendations. CRITICAL TIME SPENT: 60 minutes.
[2016-08-12] MEDS ORDERED: VANCOMYCIN 1.6 GM in NS 250 ML IV ONE (13:00)
[2016-08-12] MEDS ORDERED: NS 250 ML ONE (13:05)
[2016-08-12] MEDS ORDERED: DULCOLAX PR ONE (13:47)
[2016-08-12] MEDS: ZOSYN 3.375 GM/NS 50 ML IV SCH ×2 (14:33→20:15)
[2016-08-12] MEDS: ZOFRAN IV PRN (15:53)
--- NOTE | 2016-08-12 17:06 | CONSULTATION ---
DATE OF CONSULTATION: 08/12/2016 REASON FOR CONSULTATION: Abdominal pain and distention. HISTORY OF PRESENT ILLNESS: The patient is a poor historian, but from chart review and questioning the patient, she reports a 2 year history of abdominal pain that has gotten worse over the last week or so. She has had multiple episodes of nausea and vomiting and increased abdominal pain. No exacerbating or relieving factors. She reports some blood in her stool at times. She also has had recent cough, shortness of breath and congestion. Further workup since admission has revealed pneumonia on chest x-ray. She also has a urinalysis suggestive of UTI, although her urine culture has not had any growth. She has had imaging documenting fairly diffuse colonic distention, although the rectum appears to be normal. There is no small bowel obstruction, free air, abscess or diverticulitis. She is quite acidotic and we are asked to evaluate her for possible intra-abdominal source of her sepsis. PAST MEDICAL HISTORY: Bipolar disorder, cocaine use, chronic obstructive pulmonary disease, gastroesophageal reflux disease, hypertension, history of stroke, tobacco abuse. PAST SURGICAL HISTORY: Laparoscopic cholecystectomy. . Back surgery. Hernia repair. SOCIAL HISTORY: She smokes and uses cocaine daily. ALLERGIES: Bactrim. FAMILY HISTORY: Noncontributory. REVIEW OF SYSTEMS: Ten systems reviewed and negative except as noted above. HOME MEDICATIONS: Albuterol inhaler, Neurontin, Zofran, Desyrel, Singulair, Reglan, Phenergan, Motrin and Prilosec. CURRENT MEDICATIONS: Vancomycin, Zosyn, sodium bicarb and albuterol/ipratropium. PHYSICAL EXAMINATION: Vital Signs: Temperature 98 degrees, pulse 104, respirations 23, blood pressure 110/71, O2 saturation 90%. General: Somewhat disheveled-appearing female who looks poorly nourished, in no acute distress. HEENT: Normocephalic, atraumatic. Extraocular muscles intact. Pupils equal, round, reactive to light. Sclerae anicteric. She has poor dentition. Mucous membranes are dry. Neck: Supple. No thyromegaly. CARDIOVASCULAR: Slightly tachycardic. Respiratory: Bilateral breath sounds. No increased work of breathing. There is some rhonchi bilaterally. GI: Soft, mildly distended and tympanic. She is moderately tender diffusely. No organomegaly or masses appreciated. No hernias appreciated. No rebound or guarding appreciated. Extremities: No clubbing, cyanosis, or edema. Skin: Warm and dry. No rash. Musculoskeletal: Moves all extremities equally and well. LABORATORY: White blood cell count 17,000, on admission, now 8.5. Hemoglobin 8.6 on admission, now 7.9. She has had 1 unit of blood transfused since admission. Platelet count 281,000. ABG this morning, pH 7.3, pCO2 19, PaO2 15, bicarb 13, base deficit 15, lactate 0.8, sodium 137, potassium 2.8, chloride 113, CO2 10, BUN 17, creatinine 1.2, glucose 88, calcium 6.6, AST 43, ALT 231, alkaline phosphatase 106, albumin 2.4, lactate 1.3. IMAGING: As described above in HPI. ASSESSMENT/PLAN: A 51-year-old female with diffuse abdominal pain, recent nausea and vomiting, colonic distention and possibly rectal bleeding and anemia. The source of her current illness is unclear. She may have urinary tract infection as well as pneumonia. She has some colonic distention which is ill-defined at this point. I doubt she has any ischemic gut given her normal lactate. I think she has volume loss with hypokalemia and hypochloremia which would exacerbate a metabolic acidosis. Dr. Palacios is to see the patient and I think a colonoscopy would be useful to rule out obstruction as well as ischemia. I am available as needed and will follow along.
[2016-08-12 17:20] LABS: AGAP 13; BUN 14 mg/dL (8-22); CHLORIDE 117 mmol/L (98-107); COSMO 282; SODIUM 141 mmol/L (136-145); TCO2 11 mmol/L (25-35)
[2016-08-12 17:23] LABS: CALCIUM 6.3 mg/dL (8.8-10.2); POTASSIUM 2.4 mmol/L (3.5-5.1)
--- NOTE | 2016-08-12 17:38 | CONSULTATION ---
DATE OF CONSULTATION: 08/12/2016 CONSULTING PHYSICIAN: Dr. Chou. REASON FOR CONSULT: Abdominal pain. HISTORY OF PRESENT ILLNESS: This is a 51-year-old white female with multiple medical issues. She was transferred from [facility] where she presented with abdominal pain, nausea, vomiting, and shortness of breath. She has a history of gastroesophageal reflux disease and complains of abdominal pain off and on for the past few days. She has not been able to identify as to the factor that brings abdominal pain. Sometimes it sharp and sometimes cramp like. She reports some worsening of pain after eating. She has been nauseated and has had some emesis. She complains of constipation. She has bowel movements every week or sometimes 2 weeks. She takes over-the- counter laxatives and stool softeners for her bowel movements. Her pain has progressively gotten worse, to the point that she had to come to the emergency room. She denies any hematemesis or coffee-ground emesis. She has not noticed any blood or mucus in her stool. Denies any melena. She has not had any fever or chills but has been complaining of generalized body aches. She has had some headache but denies any dizziness or double vision. Denies any sore throat or sores in her mouth prior to hospitalization, but since her NG-tube has been placed she has complained of feeling as if she is choking. She has complained of a dry mouth and wanted to have some ice chips now. She has had some cough without any hemoptysis. She denies any dysuria, polyuria, or hematuria. She has had a problem with drugs. She has been doing cocaine. In fact, her drug screen from her hospitalization shows positive for cocaine. PAST MEDICAL HISTORY: Significant for gastroesophageal reflux disease, history of hypertension, COPD, history of CVA with residual left-sided weakness, bipolar disorder. PAST SURGICAL HISTORY: She has had multiple back surgeries, , cholecystectomy, and herniorrhaphy. MEDICATIONS: Prior to her hospitalization she has been on Desyrel, Phenergan, Singulair, Reglan, Ventolin, Motrin, Neurontin, Zofran, and Prilosec. ALLERGIES: Claims she is allergic to sulfa medication. Has had some anaphylactic reaction to it. SOCIAL HISTORY: She lives by herself. Smokes 1 pack per day. She tells me she smokes cocaine daily. FAMILY HISTORY: Noncontributory. REVIEW OF SYSTEMS: As per HPI as above. PHYSICAL EXAMINATION: General: This is a middle-aged white female. She is lying in bed. Appears to be in some distress. Complaining of sore throat and feeling of dry mouth. Vital signs: Temperature is 98.2 degree Fahrenheit. She is tachycardic. Her heart rate ranges from 104-105 per minute, breathing rate of 23-25 per minute, blood pressure 110/71. She is 177 pounds and 5 feet 5 inches tall. HEENT: Head is atraumatic, normocephalic. Eyes: Conjunctivae normal. Sclerae anicteric. Nares have an NG tube in place which is draining just clear liquid. Very scant amount of liquid present in the canister. Mouth: Buccal mucosa is dry. She has poor oral hygiene. Neck: Supple. No lymphadenopathy or thyromegaly. Chest: Bilaterally symmetrical. It is moving with respirations. Breath sounds audible bilaterally. She is a little tachypneic. Heart: S1, S2 audible. No murmur could be appreciated. Abdomen: Full. It is soft but tender. She has mild tenderness diffusely but she has positive rebound tenderness but no guarding noted. Bowel sounds are sluggish. Extremities: No pedal edema, cyanosis, or clubbing was noted. 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 No sensory deficit noted but she has left-sided weakness. LABS: Reviewed which show WBC of 8.55 which on the 10th it was 17.10. Hemoglobin today is 7.9 with hematocrit 24.1, MCV 74.6, with platelets of 281,000. PT 12.7, INR 1.2. Her pH was 7.31 with pCO2 of 19, PO2 52, with normal lactate. Sodium 137, potassium 2.8, chloride 113, bicarb 10, BUN 17, creatinine 1.2, calcium 6.6, with albumin 2.4, corrected calcium is 7.9. AST is 43, ALT 231, alkaline phosphatase 106, with total bilirubin of 0.26. CT scan of the abdomen and pelvis was essentially showing dilated colon. Otherwise no other pathology seen. IMPRESSION AND PLAN: This is a 51-year-old white female who presented with abdominal pain, nausea, and vomiting. She has imaging studies suggestive of colonic inertia or ileus. She is hypokalemic and has metabolic acidosis along with microcytic anemia, elevated LFTs, with a history of cocaine abuse and presented with positive cocaine in the urine. There is a possibility of vascular injury from her cocaine resulting in multiorgan hit including liver, kidney, as well as bowels. However, infectious etiology is also a possibility. She has improved to some degree that her nausea and vomiting is better, NG tube is not draining much, and she is in the process of getting potassium replenished. I will give her a Dulcolax suppository and see if that stimulates her bowel and she can get rid of the air that is trapped in her colon once her potassium is corrected. Depending on the response from there, further plans will be made. Other than the rebound tenderness, not much there to suggest acute abdomen or infarction or ischemic injury to the bowels. Her lactate levels are normal but she has metabolic acidosis. Not sure about the etiology there. Again, continue symptomatic treatment. Continue supportive care. Further plans will be made according to the progress.
[2016-08-13] MEDS: SODIUM BICARBONATE 8.4% 150 MEQ in D5W 1,000 ML IV SCH ×3 (00:46→23:29)
[2016-08-13] MEDS: ZOSYN 3.375 GM/NS 50 ML IV SCH ×4 (01:39→20:37)
[2016-08-13 02:19] LABS: ALLEN TEST YES; BE -9.5 mmoll (-3.0-3.0); BLOOD TYPE ARTERIAL; DRAW SITE R RADIAL; METHB 1.3 % (0.0-1.5); PCO2(98.6) 29 mmHg (35-45); SAMPLE BLOOD; SAO2 84.5 % (95.0-100.0); THB 9.4 g/dL (11.5-17.4); pH(98.6) 7.33 (7.35-7.45)
[2016-08-13 02:20] LABS: PO2(98.6) 49 mmHg (60-100)
[2016-08-13 02:21] LABS: MODALITY NRB
[2016-08-13] MEDS: DUONEB (A & A) INH SCH ×6 (02:45→23:40)
[2016-08-13] MEDS: MORPHINE IV PRN ×4 (02:57→20:12)
[2016-08-13 05:41] LABS: HEMOGLOBIN 8.1 g/dL (12.0-16.0); MCH 24.8 PG (27-31); MCHC 33.8 g/dL (33-37); MCV 73.6 FL (81-99); MPV 10.6 FL (7.4-10.4); RBC 3.26 XMIL (4.2-5.4)
[2016-08-13 05:52] LABS: AGAP 12; ALBUMIN 2.1 g/dL (3.5-5.0); ALKALINE PHOSPHATASE 144 U/L (32-104); BUN 12 mg/dL (8-22); CALCIUM 7.1 mg/dL (8.8-10.2); CHLORIDE 110 mmol/L (98-107); COSMO 281; GOT 36 U/L (10-30); GPT 141 U/L (10-36); POTASSIUM 2.8 mmol/L (3.5-5.1); SODIUM 140 mmol/L (136-145); TCO2 18 mmol/L (25-35); TOTAL BILIRUBIN 0.36 mg/dL (0.20-1.00); TOTAL PROTEIN 4.7 g/dL (6.3-8.3)
--- NOTE | 2016-08-13 08:09 | Diag Imaging Result Document ---
PROCEDURE NAME: CHEST-PORTABLE - 08/13/2016 AP PORTABLE CHEST: TIME: 0500 hours. FINDINGS: There is an NG tube with its tip below the diaphragm. There is a PICC line on the right with its tip in the right atrium. There is alveolar and interstitial pulmonary edema particularly in the lung apices and the left base. This was not present on 08/10/2016. IMPRESSION: Pulmonary edema.
[2016-08-13] MEDS ORDERED: MAGNESIUM SULFATE 2 GM/S.W.I. 50 ML IV ONE (08:39)
[2016-08-13] MEDS: POTASSIUM CHLORIDE 20 MEQ/SWI 100 ML IV SCH ×2 (09:22→10:49)
--- NOTE | 2016-08-13 11:08 | Diag Imaging Result Document ---
PROCEDURE NAME: JONATHAN ABDOMEN - 08/13/2016 KUB: FINDINGS: There is an NG tube with its tip in the stomach. There is much less colonic gas than on 08/11/2016. There is still some stool in the rectum. IMPRESSION: Improved colonic dilatation.
--- NOTE | 2016-08-13 11:25 | PROGRESS NOTE ---
DATE: 08/13/2016 SUBJECTIVE: Today Ms. Bernard referred to be doing okay. I understand she was having significant desaturation yesterday and had to be placed under the BiPAP. OBJECTIVE: Vital Signs: Stable. Blood pressure is 144/87, pulse of 101, respirations 27 temperature is 98.7 degrees. General: Mr. Ms. casas is a 51-year-old female. She is in bed. She did not seem to be in any distress. HEENT: Mucosa is pink and moist. Anicteric. Acyanotic. Neck: Supple. Chest: Air entry is bilaterally reduced. There is diffuse bilateral crepitations. Cardiovascular: Regular rate and rhythm. Abdomen: Soft, nondistended. Bowel sounds are present. Extremities: No pedal edema. 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 There is mild left- sided weakness which was there due to previous stroke. The patient has bilateral corneal mild opacification bilaterally. LABORATORY DATA: WBC is 16.38, hemoglobin is 8.1, platelet count of 233. Chemistry: Sodium is 140, potassium is 2.8, chloride is 110, bicarb is 18, creatinine is 0.9, resolved, calcium is 7.1. AST is 36, improved. ALT is 141, improving. ASSESSMENT: 1. Abdominal pain with colonic distention, unsure etiology. It looks to be just a huge ileus. We are concerned for ischemic colitis. However, lactic acid was completely normal. Patient's abdominal distention seems to be doing a whole lot better. Clinically there is very minimal NG tube drainage. We will going to do a KUB to follow up. If the distention is improved will probably be able to start the patient on clear liquids today. 2. Microcytic anemia with iron deficiency. Patient got PRBC transfused which might have restored her iron stores. In the uncertainty of possible infection, I would withhold giving her any iron. 3. High anion gap metabolic acidosis on presentation. This has improved. 4. Acute kidney injury, resolved. 5. Hypotension on presentation. Not quite sure of the etiology. We suspect possible sepsis versus fluid sequestration through the colonic distention versus dehydration. Blood pressure is a whole lot better. The patient did not need any pressors. 6. Transaminitis. Etiology is unclear but it is improving. Hepatitis panel was sent. Tylenol level was unremarkable. I think this is probably due to ischemic hepatopathy from the hypotension when patient was critically sick. 7. Aspiration pneumonia. Chest x-ray shows bilateral infiltrate and patient is getting hypoxemic. She is currently on BiPAP. The patient has been started on antibiotics. We plan to continue also with nebulizations. Will follow up tomorrow with a chest x- ray. GENERAL PLAN: The patient is relatively stable. We are going to do a KUB to look at the colonic distention. If it is improved, we will start the patient on clear liquids. For today we will continue the she will continue with the bicarb and D5 infusion and replace all the electrolyte abnormalities. We will also continue the BiPAP use at least for another 24 hours to improved her oxygenation needs from the severe aspiration pneumonia. W[facility]CK[facility]IGHT[facility] MEDICAL CENTERKostas
[2016-08-13] MEDS: ATIVAN IV PRN ×3 (11:44→23:36)
[2016-08-13] MEDS: VANCOMYCIN 1.3 GM in NS 250 ML IV SCH (13:10)
[2016-08-13 13:36] LABS: HEPATITIS PROFILE ACUTE SEE COMMENTS (())
[2016-08-13 21:05] LABS: ALLEN TEST YES; BE 0.1 mmoll (-3.0-3.0); BLOOD TYPE ARTERIAL; DRAW SITE R RADIAL; PCO2(98.6) 34 mmHg (35-45); PO2(98.6) 135 mmHg (60-100); SAMPLE BLOOD; pH(98.6) 7.45 (7.35-7.45)
[2016-08-13 21:07] LABS: MODALITY BI PAP
[2016-08-13] MEDS ORDERED: MORPHINE IV ONE (22:20)
[2016-08-14] MEDS: ZOSYN 3.375 GM/NS 50 ML IV SCH ×4 (01:31→21:03)
[2016-08-14] MEDS: MORPHINE IV PRN ×7 (01:31→23:03)
[2016-08-14] MEDS: DUONEB (A & A) INH SCH ×6 (03:46→23:50)
[2016-08-14 04:51] LABS: ALLEN TEST YES; BE 1.5 mmoll (-3.0-3.0); BLOOD TYPE ARTERIAL; DRAW SITE R RADIAL; PCO2(98.6) 39 mmHg (35-45); PO2(98.6) 68 mmHg (60-100); SAMPLE BLOOD; pH(98.6) 7.43 (7.35-7.45)
[2016-08-14 04:53] LABS: MODALITY BI PAP
[2016-08-14 06:07] LABS: HEMATOCRIT 22.6 % (37.0-47.0); HEMOGLOBIN 7.6 g/dL (12.0-16.0); MCH 24.8 PG (27-31); MCHC 33.6 g/dL (33-37); MCV 73.9 FL (81-99); MPV 10.8 FL (7.4-10.4); RBC 3.06 XMIL (4.2-5.4)
[2016-08-14 06:15] LABS: AGAP 11; ALBUMIN 1.9 g/dL (3.5-5.0); ALKALINE PHOSPHATASE 176 U/L (32-104); BUN 9 mg/dL (8-22); CALCIUM 7.3 mg/dL (8.8-10.2); CHLORIDE 110 mmol/L (98-107); COSMO 288; GOT 21 U/L (10-30); GPT 96 U/L (10-36); POTASSIUM 2.6 mmol/L (3.5-5.1); SODIUM 145 mmol/L (136-145); TCO2 24 mmol/L (25-35); TOTAL BILIRUBIN 0.57 mg/dL (0.20-1.00); TOTAL PROTEIN 4.7 g/dL (6.3-8.3)
--- NOTE | 2016-08-14 07:31 | Diag Imaging Result Document ---
PROCEDURE NAME: CHEST-PORTABLE - 08/14/2016 PORTABLE CHEST X-RAY: COMPARISON: 08/13/2016. FINDINGS: Stable right PICC line and nasogastric tube in good position. Stable diffuse bilateral mixed, predominantly interstitial infiltrates. Heart size remains top normal. IMPRESSION: No change from prior.
[2016-08-14] MEDS ORDERED: POTASSIUM CHLORIDE 40 MEQ/SWI 100 ML IV ONE ×2 (07:52→14:00)
[2016-08-14] MEDS ORDERED: MAGNESIUM SULFATE 2 GM/S.W.I. 50 ML IV ONE (07:53)
--- NOTE | 2016-08-14 08:30 | PROGRESS NOTE ---
DATE: 08/14/2016 SUBJECTIVE: This is a 51-year-old who was admitted on 08/11/[address] Robbi Henson. She came over from [place] presenting with shortness of breath, nausea, and vomiting for 3 days. A 51-year- old female with prior history of hypertension, COPD, reflux, cocaine abuse, and medical noncompliance. She presented to the emergency room complaining of 3-day history of nausea, vomiting, cough, and congestion. She did state that in this time she developed productive cough with yellow-brown sputum. She complained of abdominal pain described as aching-type pain. She denied any hemoptysis, black or bloody stools. CT of the abdomen and pelvis revealed ileus, I guess, of the proximal colon. Found to have a white count of 17,000. Sodium was 125, potassium 2.8 and creatinine 2.7, as well as a drug screen positive for cocaine. She got a 2 L saline bolus, Dilaudid, and Protonix. PAST MEDICAL HISTORY: 1. Cocaine use. 2. Bipolar disorder. 3. Hypertension. 4. Chronic obstructive pulmonary disease. 5. Gastroesophageal reflux disease. 6. Prior history of cerebrovascular accident. 7. Medical noncompliance. 8. Tobacco use. PAST SURGICAL HISTORY: 1. Status post cholecystectomy. 2. section. 3. Hernia repair. PHYSICAL EXAMINATION: She is on BiPAP. She is moving all extremities. Restless requiring restraint. They are giving her morphine and Ativan. Morphine seems to work a little brother for sedation. Temperature 97.2 degrees, pulse 99, respirations 34, blood pressure 131/106. Pupils are equal. CVP less than 6 cm. Lungs are clear anterior lateral, and she is moving air bilateral, but she does have scattered rhonchi and tachypnea. Rapid respiratory rate. Abdomen soft. Skin is warm and dry. Urine output 1600 mL. LABORATORIES: From today, white count elevated 23,070. Hematocrit 22, platelet count 192,000. Sodium 145, potassium 2.6. Chloride 110. BUN 9, creatinine 0.8, calcium 7.3. AST is 21, ALT is 96. Alkaline phos 176, albumin 4.7. Also, a chest x-ray from this morning - no change from prior, stable. Right PICC line and nasogastric tube in good position. Stable diffuse bilateral mixed predominantly interstitial infiltrates. Heart size was normal. ASSESSMENT AND PLAN: 1. Abdominal pain. Colonic distention. Unsure of etiology. Looks to be a huge ileus. Concerned for ischemic colitis. However, lactic acid was completely normal. The patient's abdominal distention seems to be better. Very minimal NG tube drainage. This seems to be improving. 2. Macrocytic anemia. Iron deficiency. She got transfused some packed red blood cells, and I have restored her iron stores (possible infection; I will withhold giving her some iron now). 3. High anion gap. Metabolic acidosis on presentation has improved. 4. Acute kidney injury, resolved. 5. Hypotension on presentation. Not sure of etiology. Suspect sepsis versus fluid sequestration to the colon. Distention versus dehydration. Blood pressure a lot better. 6. Transaminitis, etiologies unclear. Hepatitis panel was sent. Tylenol level unremarkable. This may be due to ischemic hepatopathy or hypotension. The patient was critically sick. 7. Aspiration pneumonia. Chest x-ray shows bilateral infiltrate and was hypoxemic. White count is going up. Currently on BiPAP. She has been on some antibiotics. REVIEW OF ORDERS: She is on vancomycin 1.3 g q. 24 hours. She is on Zosyn 3.375 mg IV q.6 hours. She is on D5 water with bicarb 150 mEq 100 mL an hour. Getting Ativan and morphine for sedation. Dr. Palacios is involved. Dr. Banks is involved. We will see how the respiratory status does. We may need to look at left ventricular function.
[2016-08-14] MEDS: SODIUM BICARBONATE 8.4% 150 MEQ in D5W 1,000 ML IV SCH (11:45)
[2016-08-14] MEDS: ATIVAN IV PRN ×2 (11:46→21:04)
[2016-08-14] MEDS: VANCOMYCIN 1.3 GM in NS 250 ML IV SCH (13:12)
[2016-08-14] MEDS ORDERED: ATIVAN IV PRN (13:54)
[2016-08-14 16:15] LABS: BLOOD TYPE ARTERIAL; SAMPLE BLOOD
[2016-08-14 16:20] LABS: ALLEN TEST YES; BE 6.3 mmoll (-3.0-3.0); DRAW SITE L RADIAL; METHB 1.2 % (0.0-1.5); O2(CT) 11.7 mL/dL (15.0-23.0); PCO2(98.6) 42 mmHg (35-45); PO2(98.6) 58 mmHg (60-100); SAO2 91.6 % (95.0-100.0); THB 9.2 g/dL (11.5-17.4); pH(98.6) 7.47 (7.35-7.45)
[2016-08-14 16:21] LABS: MODALITY BI PAP
[2016-08-14] MEDS ORDERED: DIPRIVAN 1% 100 ML ONE (16:41)
[2016-08-14] MEDS ORDERED: DIPRIVAN 1% 100 ML IV SCH (17:15)
[2016-08-14] MEDS ORDERED: LEVOPHED 8 MG in D5 1/2 NS 250 ML IV SCH (18:15)
[2016-08-14] MEDS: NS 1,000 ML IV SCH (23:04)
[2016-08-15] MEDS: MORPHINE IV PRN ×7 (02:06→22:21)
[2016-08-15] MEDS: ZOSYN 3.375 GM/NS 50 ML IV SCH ×4 (02:06→20:06)
[2016-08-15] MEDS: DUONEB (A & A) INH SCH ×6 (04:15→23:53)
[2016-08-15] MEDS: ATIVAN IV PRN ×7 (04:49→23:16)
[2016-08-15 05:21] LABS: ALLEN TEST YES; BE 5.4 mmoll (-3.0-3.0); BLOOD TYPE ARTERIAL; DRAW SITE R RADIAL; METHB 1.1 % (0.0-1.5); O2(CT) 10.9 mL/dL (15.0-23.0); PCO2(98.6) 47 mmHg (35-45); PO2(98.6) 73 mmHg (60-100); SAMPLE BLOOD; SAO2 92.5 % (95.0-100.0); SRATE 12 BPM; THB 8.4 g/dL (11.5-17.4); TVOL 20 mL; pH(98.6) 7.42 (7.35-7.45)
[2016-08-15 05:22] LABS: MODALITY VENTILATOR
[2016-08-15 06:14] LABS: BASO% 0.3 % (0.0-0.8); EOS# 0.55 X1000 (0.0-0.7); EOS% 3.5 % (0.0-10.0); HEMATOCRIT 22.5 % (37.0-47.0); HEMOGLOBIN 7.2 g/dL (12.0-16.0); IMM GRAN# 0.07 X1000 (0.0-0.04); IMM GRAN% 0.5 % (0.0-0.5); LYMPH# 1.86 X1000 (1.2-3.4); MANUAL DIFF NEEDED? YES; MCH 23.9 PG (27-31); MCV 74.8 FL (81-99); MONO# 1.26 X1000 (0.11-0.59); MONO% 8.1 % (1.7-9.3); MPV 10.9 FL (7.4-10.4); NEUT% 75.6 % (42.2-75.2); PLT 134 X1000 (130-400); RBC 3.01 XMIL (4.2-5.4)
[2016-08-15 06:25] LABS: AGAP 13; ALKALINE PHOSPHATASE 159 U/L (32-104); BUN 9 mg/dL (8-22); CALCIUM 7.2 mg/dL (8.8-10.2); CHLORIDE 111 mmol/L (98-107); COSMO 295; GOT 16 U/L (10-30); GPT 64 U/L (10-36); MAGNESIUM 2.6 mg/dL (1.5-2.7); POTASSIUM 2.9 mmol/L (3.5-5.1); SODIUM 149 mmol/L (136-145); TCO2 25 mmol/L (25-35); TOTAL BILIRUBIN 0.56 mg/dL (0.20-1.00); TOTAL PROTEIN 4.8 g/dL (6.3-8.3)
[2016-08-15 06:41] LABS: BANDS 4 % (0-1); EOS 6 % (1-10); LYMPHS 20 % (21-51); MONO 4 % (1-9)
[2016-08-15 06:42] LABS: HYPOCHROM 1+
--- NOTE | 2016-08-15 07:47 | Diag Imaging Result Document ---
PROCEDURE NAME: CHEST-PORTABLE - 08/15/2016 SINGLE FRONTAL RADIOGRAPH OF THE CHEST: COMPARISON: 08/14/2016. FINDINGS: ET tube is in stable position. NG tube projects below the diaphragm and out of the field of view. Right PICC line is stable. There are diffuse bilateral infiltrates. Given differences in exposure and inspiration, they are approximately stable. No new consolidations are identified. Cardiac silhouette is stable. IMPRESSION: Grossly stable chest.
[2016-08-15] MEDS: PROTONIX IV SCH (08:06)
[2016-08-15] MEDS: POTASSIUM CHLORIDE 20% LIQUID PO SCH ×4 (08:07→20:06)
[2016-08-15] MEDS: SODIUM CHLORIDE 0.9% INJ SCH (08:07)
[2016-08-15] MEDS: NS 1,000 ML IV SCH (08:08)
--- NOTE | 2016-08-15 08:31 | Diag Imaging Result Document ---
PROCEDURE NAME: CHEST-PORTABLE - 08/14/2016 SINGLE FRONTAL RADIOGRAPH OF THE CHEST: COMPARISON: 08/14/2016. FINDINGS: There is a newly placed ET tube. The tip projects over the trachea and above the edy at about the T3 level. There are diffuse bilateral infiltrates suggesting pulmonary edema. They appear to have worsened during the interval. An NG tube projects below the diaphragm and out of the field of view. Cardiac silhouette is stable. IMPRESSION: Interval placement of ET tube as described and worsened infiltrates bilaterally.
--- NOTE | 2016-08-15 09:47 | PROGRESS NOTE ---
DATE: 08/15/2016 SUBJECTIVE: Ms. Bernard had to be intubated yesterday. CO2 retention and respiratory failure. Suspect cocaine withdrawal. OBJECTIVE: Temperature 97.6 degrees, pulse 93, respirations 20, blood pressure 101/73. Lungs are clear in all lung lee anterior lateral. Cardiovascular: Regular rhythm and rate without murmur or S3. Abdomen is soft. Skin is warm and dry. Urine output was 1500 mL. LABORATORY DATA: Lab from this morning has come down. White count 15,550. Hematocrit 22, platelet count 134,000. Sodium 149, potassium 2.9, chloride 111, bicarb 25. BUN 9, creatinine 0.9, magnesium is 2.6. Transaminases are coming down to 64. Her AST and ALT 159. Albumin 2.0 Chest x-ray: Grossly stable chest. ET tube in position. NG tube projects below the diaphragm out of the field of view. Right PICC line is stable. Diffuse bilateral infiltrates. ASSESSMENT AND PLAN: 1. Abdominal pain, colonic distention, unsure of etiology. It looks like a large ileus. Initially, there was concern for ischemic colitis; however, lactic acid was normal. Suspicion for cocaine withdrawal. 2. Microcytic anemia, iron deficiency. She was given some packed red blood cells. Her hematocrit appears to be stable. No sign of active bleeding. 3. High anion gap metabolic acidosis, which has improved. 4. Acute kidney injury which is improved. Her urine output is improved. 5. Hypertension. Questionable sepsis versus fluid sequestration in the colon. Blood pressure is improving. 6. Transaminitis. Hepatitis panel was sent. 7. Aspiration pneumonia. Continue present antibiotics. 8. Respiratory failure. She had to be intubated and required quite a bit of benzodiazepines for her encephalopathy, confusion, and delirium and suspect drug withdrawal. She is on Zosyn 3.375 mg q.6. She is on vancomycin 1.3 g q. 24 hours. Supplement: We gave her some potassium which she is going to get q. 4. I think Dr. Álvarez ordered 40 mEq q.4 hours.
--- NOTE | 2016-08-15 11:28 | CONSULTATION ---
DATE OF CONSULTATION: 08/15/2016 REFERRING PHYSICIAN: Dr. Jordy Gonzalez. CHIEF COMPLAINT: Shortness of breath. HISTORY OF PRESENT ILLNESS: This is a 51-year-old female with past medical history of hypertension, COPD, GERD, CVA, tobacco abuse, cocaine abuse, bipolar disorder who arrived at the hospital originally complaining of shortness of breath and nausea and vomiting. She did describe of productive cough with yellow and brown sputum as well as abdominal pain described as aching. Further investigation revealed significant ileus. She has also had a white count of 17,000. Hyponatremic and hypokalemic with some renal failure and positive for cocaine. She is now intubated in the ICU. REVIEW OF SYSTEMS: Unable to obtain secondary to patient's current status. PAST MEDICAL HISTORY: As mentioned in HPI, otherwise, noncontributory. PAST SURGICAL HISTORY: Cholecystectomy. hernia repair. SOCIAL HISTORY: The patient lives at home. Smokes approximately 1 pack per day of cigarettes. She uses cocaine daily. ALLERGIES: Bactrim and sulfa. FAMILY HISTORY: Noncontributory. ACTIVE MEDICATIONS: 1. DuoNeb. 2. Ativan. 3. Vancomycin. 4. Morphine. 5. Levophed. 6. Zofran. 7. Protonix. 8. Zosyn. PHYSICAL EXAMINATION: VITAL SIGNS: Temperature 97.6, heart rate 97, respiratory rate 20, blood pressure 101/73, oxygen saturation 97%. GENERAL: Lying on an ICU stretcher, intubated, sedated with morphine and Ativan. No acute distress. HEENT: Normocephalic, atraumatic. ET tube in place. CARDIOVASCULAR: S1, S2 present. CHEST: Reduced entry. ABDOMEN: Soft and slightly distended. Bowel sounds present. EXTREMITIES: No edema. SKIN: Warm and dry. NEURO: Sedated. LABS AND INVESTIGATIONS: WBC 15.5, RBC 3, hemoglobin 7, hematocrit 22. Platelet count 134,000. Sodium 149, potassium 2.9, chloride 111, carbon dioxide 25, anion gap 13. BUN 9, creatinine 0.8, glucose 295. Blood gas reveals a pH 7.42, pCO2 of 47, pO2 of 73, HC03 of 29.1, base excess 5.4, saturated oxygen 93. Chest x-ray performed on shows stable chest. ASSESSMENT AND PLAN: This is a 51-year-old female with past medical history mentioned in the history of present illness who presented to the hospital initially with complaints of cough and abdominal pain. She was found to have an ileus, electrolyte imbalance, respiratory failure, macrocytic anemia, hypotension, transaminitis and aspiration pneumonia. She is now intubated in the ICU receiving IV antibiotics, inhaled bronchodilators, vasopressors for her hypotension, electrolyte replacement, and GI prophylaxis. Further recommendations pending diagnostic studies. Thank you for the courtesy of this consult. Dictated by PREETI Cohen for Leigh Ann Álvarez MD
[2016-08-15] MEDS: VANCOMYCIN 1,600 MG in NS 250 ML IV SCH (14:16)
[2016-08-16] MEDS: MORPHINE IV PRN ×6 (00:24→21:45)
[2016-08-16] MEDS: ZOSYN 3.375 GM/NS 50 ML IV SCH ×4 (01:07→19:25)
[2016-08-16] MEDS: ATIVAN IV PRN ×6 (01:07→22:32)
[2016-08-16] MEDS: DUONEB (A & A) INH SCH ×6 (02:55→22:56)
[2016-08-16 04:33] LABS: ALLEN TEST YES; BE 0.2 mmoll (-3.0-3.0); BLOOD TYPE ARTERIAL; DRAW SITE R RADIAL; METHB 0.4 % (0.0-1.5); O2(CT) 11.1 mL/dL (15.0-23.0); PCO2(98.6) 38 mmHg (35-45); PO2(98.6) 75 mmHg (60-100); SAMPLE BLOOD; SAO2 94.4 % (95.0-100.0); SRATE 14 BPM; THB 8.4 g/dL (11.5-17.4); pH(98.6) 7.42 (7.35-7.45)
[2016-08-16 04:34] LABS: MODALITY VENTILATOR
[2016-08-16 05:25] LABS: BASO% 0.5 % (0.0-0.8); EOS# 0.54 X1000 (0.0-0.7); EOS% 5.1 % (0.0-10.0); HEMATOCRIT 22.8 % (37.0-47.0); HEMOGLOBIN 7.1 g/dL (12.0-16.0); IMM GRAN# 0.07 X1000 (0.0-0.04); IMM GRAN% 0.7 % (0.0-0.5); LYMPH# 1.78 X1000 (1.2-3.4); LYMPH% 16.8 % (20.5-51.1); MANUAL DIFF NEEDED? NO; MCH 24.1 PG (27-31); MCHC 31.1 g/dL (33-37); MCV 77.6 FL (81-99); MONO# 0.89 X1000 (0.11-0.59); MONO% 8.4 % (1.7-9.3); MPV 10.7 FL (7.4-10.4); NEUT% 68.5 % (42.2-75.2); PLT 122 X1000 (130-400); RBC 2.94 XMIL (4.2-5.4)
[2016-08-16 06:09] LABS: AGAP 10; ALKALINE PHOSPHATASE 144 U/L (32-104); BUN 8 mg/dL (8-22); CALCIUM 7.5 mg/dL (8.8-10.2); CHLORIDE 119 mmol/L (98-107); COSMO 299; GOT 13 U/L (10-30); GPT 47 U/L (10-36); POTASSIUM 4.1 mmol/L (3.5-5.1); SODIUM 152 mmol/L (136-145); TCO2 23 mmol/L (25-35); TOTAL BILIRUBIN 0.45 mg/dL (0.20-1.00); TOTAL PROTEIN 5.1 g/dL (6.3-8.3)
--- NOTE | 2016-08-16 06:29 | Diag Imaging Result Document ---
PROCEDURE NAME: CHEST-PORTABLE - 08/16/2016 PORTABLE CHEST: COMPARISON: Compared to 08/15/2016. FINDINGS: No change in the position of the endotracheal tube, the nasogastric tube, or in the right-sided PICC line. There are diffuse bilateral infiltrates. These may be slightly less dense than on the prior exam. No pleural effusions identified. IMPRESSION: Questionable mild interval improvement .
[2016-08-16] MEDS: PROTONIX IV SCH (07:20)
[2016-08-16] MEDS: SODIUM CHLORIDE 0.9% INJ SCH (07:20)
[2016-08-16] MEDS ORDERED: LASIX IV ONE (09:30)
[2016-08-16] MEDS ORDERED: D5 1/2 NS + KCL 20 MEQ 1,000 ML IV SCH (09:30)
--- NOTE | 2016-08-16 10:29 | PROGRESS NOTE ---
DATE: 08/16/2016 SUBJECTIVE: Ms. Bernard is still on the ventilator. She required sedation. PHYSICAL EXAMINATION: Vital Signs: Temperature 97.3 degrees, pulse 93, respirations 14, blood pressure 113/77. HEENT: Pupils are equal. CVP less than 6 cm. Lungs: Clear anterolateral. Cardiovascular Examination: Regular rhythm and rate without murmur or S3. Abdomen: Soft. Skin: Warm and dry. Is and Os: Urine output is actually over 1300 mL. LABORATORY DATA: White count 10,610 which is down, hematocrit is 22, platelet count is 122,000. Sodium 152, potassium 4.1, chloride 119, bicarb 23, BUN 8, creatinine 0.9. Liver enzymes: Transaminase is coming down, AST 47, ALT 144. Chest x-ray: Questionable mild interval improvement, slightly less dense bilateral infiltrates. ASSESSMENT AND PLAN: 1. A 51-year-old with a past medical history that initially presented with complaints of cough, abdominal pain, and found to have ileus, electrolyte imbalance, respiratory failure, macrocytic anemia, hypotension, transaminitis, and aspiration pneumonia. Intubated. Wean as able. 2. See if we can start some tube feeding with Jevity. She needs some nutrition. 3. Positive for cocaine on admission. 4. Review of her orders. She is on vancomycin and on Zosyn. I do not see any other change at this time.
[2016-08-16 11:50] LABS: PREALBUMIN 3.1 mg/dL (20-40)
[2016-08-16 11:51] LABS: MAGNESIUM 2.4 mg/dL (1.5-2.7)
[2016-08-16] MEDS: VANCOMYCIN 1,600 MG in NS 250 ML IV SCH (13:00)
[2016-08-17] MEDS: MORPHINE IV PRN ×6 (00:44→22:30)
[2016-08-17] MEDS: ZOSYN 3.375 GM/NS 50 ML IV SCH ×4 (01:06→21:22)
[2016-08-17] MEDS: ATIVAN IV PRN ×8 (01:24→21:35)
[2016-08-17] MEDS: TYLENOL PO PRN (01:27)
[2016-08-17] MEDS: DUONEB (A & A) INH SCH ×6 (03:15→23:07)
[2016-08-17 04:53] LABS: BASO% 0.9 % (0.0-0.8); EOS# 0.44 X1000 (0.0-0.7); EOS% 4.2 % (0.0-10.0); HEMATOCRIT 23.7 % (37.0-47.0); HEMOGLOBIN 7.2 g/dL (12.0-16.0); IMM GRAN# 0.04 X1000 (0.0-0.04); IMM GRAN% 0.4 % (0.0-0.5); LYMPH# 2.27 X1000 (1.2-3.4); LYMPH% 21.5 % (20.5-51.1); MANUAL DIFF NEEDED? YES; MCH 23.9 PG (27-31); MCHC 30.4 g/dL (33-37); MCV 78.7 FL (81-99); MONO# 0.75 X1000 (0.11-0.59); MONO% 7.1 % (1.7-9.3); NEUT% 65.9 % (42.2-75.2); PLT 135 X1000 (130-400); RBC 3.01 XMIL (4.2-5.4)
[2016-08-17 04:58] LABS: ALLEN TEST YES; BE 4.2 mmoll (-3.0-3.0); BLOOD TYPE ARTERIAL; DRAW SITE R RADIAL; METHB 1.4 % (0.0-1.5); O2(CT) 10.1 mL/dL (15.0-23.0); PCO2(98.6) 40 mmHg (35-45); PO2(98.6) 96 mmHg (60-100); SAMPLE BLOOD; SAO2 95.7 % (95.0-100.0); SRATE 14 BPM; THB 7.5 g/dL (11.5-17.4); pH(98.6) 7.46 (7.35-7.45)
[2016-08-17 04:59] LABS: MODALITY VENTILATOR
[2016-08-17 05:12] LABS: MAGNESIUM 2.1 mg/dL (1.5-2.7)
[2016-08-17 05:15] LABS: ALBUMIN 1.9 g/dL (3.5-5.0); CALCIUM 7.8 mg/dL (8.8-10.2); POTASSIUM 3.8 mmol/L (3.5-5.1); TOTAL BILIRUBIN 0.36 mg/dL (0.20-1.00); TOTAL PROTEIN 5.3 g/dL (6.3-8.3)
[2016-08-17 06:59] LABS: BANDS 6 % (0-1); EOS 10 % (1-10); LYMPHS 10 % (21-51); MONO 4 % (1-9)
[2016-08-17 07:00] LABS: HYPOCHROM 2+; TARGET CELLS 1+
[2016-08-17] MEDS: SODIUM CHLORIDE 0.9% INJ SCH (08:07)
[2016-08-17] MEDS: PROTONIX IV SCH (08:07)
[2016-08-17] MEDS: LASIX IV SCH ×3 (08:08→21:24)
--- NOTE | 2016-08-17 08:29 | Diag Imaging Result Document ---
PROCEDURE NAME: CHEST-PORTABLE - 08/17/2016 PORTABLE CHEST X-RAY: COMPARISON: 08/16/2016. FINDINGS: Support lines and tubes are stable. There is improvement in the diffuse bilateral central and basilar interstitial infiltrates/edema. No new consolidation. IMPRESSION: Improvement from prior.
--- NOTE | 2016-08-17 08:43 | PROGRESS NOTE ---
DATE: 08/17/2016 She appears comfortable. She has an NG feeding tube in, still intubated. PHYSICAL EXAMINATION: Temp 98.7 degrees, pulse 100, respirations 13, blood pressure 103/80.HEENT: Pupils are equal and round. CVP less than 6 cm. Lungs: Clear in all lung lee. Cardiovascular: Regular rhythm and rate without murmur or S3. Abdomen: Soft. Skin: Warm and dry. Urine output was 3400 mL. LABORATORY: White count 86335, hematocrit 23, platelet count 135,000, chemistry sodium 153, potassium 3.8, chloride 115, BUN 10, creatinine 1.2. Liver functions unremarkable. Albumin 1.9, chest x-ray from yesterday questionable mild interval improvement. Diffuse bilateral infiltrates. Maybe slightly less than the x-ray yesterday. ASSESSMENT AND PLAN: 1. A 51-year-old female with past medical history. In addition, presented with complaints of cough abdominal pain, found to have an ileus, electrolyte imbalance, respiratory failure, microcytic anemia, hypotension, transaminase, transaminitis, and aspiration pneumonia. Intubated. X-ray radiographically appears to be improving, clinically appears to be improving. Continue to try to wean down off of the ventilator. 2. Nutrition, getting NG feeding. 3. History of positive cocaine on admission. She is on vancomycin and Zosyn which we will continue. Review of her orders, I do not see any change on Lasix 40 mg IV daily, vancomycin 1600 mg IV q.24 hours, Protonix 40 mg IV q.24 hours, Zosyn which is 3.375 mg q.6 hours.
[2016-08-17] MEDS: D5W 1,000 ML IV SCH (12:11)
[2016-08-17] MEDS: ALBUMIN 25% IV SCH ×2 (12:38→21:22)
[2016-08-17] MEDS: VANCOMYCIN 1,600 MG in NS 250 ML IV SCH (13:20)
[2016-08-17] MEDS ORDERED: LACRI-LUBE OPH OINT BOTH EYES PRN (21:38)
[2016-08-18] MEDS: MORPHINE IV PRN ×6 (02:13→20:41)
[2016-08-18] MEDS: ATIVAN IV PRN ×6 (02:13→20:42)
[2016-08-18] MEDS: ZOSYN 3.375 GM/NS 50 ML IV SCH ×4 (02:14→20:42)
[2016-08-18] MEDS: D5W 1,000 ML IV SCH ×2 (02:15→18:00)
[2016-08-18] MEDS: DUONEB (A & A) INH SCH ×6 (03:10→22:29)
[2016-08-18 04:41] LABS: ALLEN TEST YES; BE 15.4 mmoll (-3.0-3.0); BLOOD TYPE ARTERIAL; DRAW SITE R RADIAL; METHB 1.2 % (0.0-1.5); O2(CT) 13.9 mL/dL (15.0-23.0); PO2(98.6) 81 mmHg (60-100); SAMPLE BLOOD; SAO2 93.7 % (95.0-100.0); SRATE 2 BPM; THB 10.6 g/dL (11.5-17.4); TVOL 500 mL
[2016-08-18 04:42] LABS: MODALITY VENTILATOR; PCO2(98.6) 52 mmHg (35-45)
[2016-08-18 05:07] LABS: BASO% 0.6 % (0.0-0.8); EOS# 0.47 X1000 (0.0-0.7); EOS% 4.3 % (0.0-10.0); HEMATOCRIT 24.4 % (37.0-47.0); HEMOGLOBIN 7.4 g/dL (12.0-16.0); IMM GRAN# 0.02 X1000 (0.0-0.04); IMM GRAN% 0.2 % (0.0-0.5); LYMPH% 19.3 % (20.5-51.1); MANUAL DIFF NEEDED? YES; MCHC 30.3 g/dL (33-37); MCV 79.2 FL (81-99); MONO# 0.48 X1000 (0.11-0.59); MONO% 4.4 % (1.7-9.3); NEUT% 71.2 % (42.2-75.2); PLT 146 X1000 (130-400); RBC 3.08 XMIL (4.2-5.4)
[2016-08-18 05:09] LABS: MAGNESIUM 1.7 mg/dL (1.5-2.7)
[2016-08-18 05:20] LABS: ALBUMIN 3.1 g/dL (3.5-5.0); POTASSIUM 2.8 mmol/L (3.5-5.1); TOTAL BILIRUBIN 0.49 mg/dL (0.20-1.00); TOTAL PROTEIN 6.4 g/dL (6.3-8.3)
[2016-08-18 07:01] LABS: BANDS 2 % (0-1); EOS 4 % (1-10); LYMPHS 21 % (21-51); MONO 5 % (1-9); TARGET CELLS OCCASIONAL
[2016-08-18] MEDS: PROTONIX IV SCH (07:42)
[2016-08-18] MEDS: SODIUM CHLORIDE 0.9% INJ SCH (07:42)
--- NOTE | 2016-08-18 08:52 | Diag Imaging Result Document ---
PROCEDURE NAME: CHEST-PORTABLE - 08/18/2016 SINGLE FRONTAL RADIOGRAPH OF THE CHEST: COMPARISON: 08/17/2016. FINDINGS: ET tube is in stable position. NG tube projects below the diaphragm and out of the field of view. Right PICC line is stable. Diffuse bilateral infiltrates, likely representing edema, plus or minus pneumonia, is unchanged. No new consolidation is identified. Cardiac silhouette is stable. IMPRESSION: Stable chest.
[2016-08-18] MEDS: LASIX IV SCH ×2 (09:05→16:48)
[2016-08-18] MEDS ORDERED: POTASSIUM CHLORIDE 40 MEQ/SWI 100 ML IV ONE ×2 (09:25→16:00)
--- NOTE | 2016-08-18 11:29 | PROGRESS NOTE ---
DATE: 08/18/2016 SUBJECTIVE: Still on the ventilator, appears comfortable, NG tube feeding going in. OBJECTIVE: Temperature is 98.8, pulse 96, respirations 18, blood pressure 101/69. Lungs are clear in all lung lee anterolateral. Cardiovascular: Regular rate and rhythm without murmur or S3. Abdomen: Soft. Skin is warm and dry. Urine output was over 4 L. DIAGNOSTIC DATA: White count is 10,860, hematocrit 24, platelet count 146,000. Sodium is 151, potassium 2.8, chloride 102, bicarb 34, BUN is 10, creatinine 1.2, albumin 3.1. Note that chest x- ray was done this morning, stable chest, ET tube in good position, NG tube projects below the diaphragm PICC line is stable. No consolidations identified. Bilateral infiltrates, plus or minus pneumonia. ASSESSMENT AND PLAN: 1. This is a 51 year old with respiratory failure, bilateral infiltrates, treating for bilateral pneumonia. She did present with what appeared to be an ileus. 2. NG feeding in place, tolerating. Advance as we can. 3. History of positive cocaine on her drug screen on admission. Continue to try to wean off the ventilator. She is continued on Lasix 40 mg IV daily. She is getting D5 at 70 mL an hour. We will supplement potassium. She is on Zosyn. We will continue that for now. Protonix 40 mg daily. She is also on vancomycin.
[2016-08-18] MEDS: TYLENOL PO PRN (12:19)
[2016-08-19] MEDS: ATIVAN IV PRN ×8 (00:35→22:10)
[2016-08-19] MEDS: MORPHINE IV PRN ×7 (00:36→21:06)
[2016-08-19] MEDS: LASIX IV SCH ×2 (02:00→09:07)
[2016-08-19] MEDS: ZOSYN 3.375 GM/NS 50 ML IV SCH ×4 (02:01→20:26)
[2016-08-19] MEDS: DUONEB (A & A) INH SCH ×6 (03:09→22:37)
[2016-08-19 04:43] LABS: ALLEN TEST YES; BE 11.5 mmoll (-3.0-3.0); BLOOD TYPE ARTERIAL; DRAW SITE R RADIAL; PCO2(98.6) 48 mmHg (35-45); PO2(98.6) 120 mmHg (60-100); SAMPLE BLOOD; SAO2 95.9 % (95.0-100.0); SRATE 12 BPM; THB 14.1 g/dL (11.5-17.4); TVOL 500 mL; pH(98.6) 7.49 (7.35-7.45)
[2016-08-19 04:44] LABS: MODALITY VENTILATOR
[2016-08-19 05:49] LABS: MANUAL DIFF NEEDED? NO
[2016-08-19 05:52] LABS: BASO% 0.6 % (0.0-0.8); EOS# 0.38 X1000 (0.0-0.7); EOS% 3.2 % (0.0-10.0); HEMATOCRIT 26.1 % (37.0-47.0); IMM GRAN# 0.02 X1000 (0.0-0.04); IMM GRAN% 0.2 % (0.0-0.5); LYMPH# 1.69 X1000 (1.2-3.4); LYMPH% 14.1 % (20.5-51.1); MCH 24.5 PG (27-31); MCHC 30.7 g/dL (33-37); MCV 80.1 FL (81-99); MONO# 0.45 X1000 (0.11-0.59); MONO% 3.7 % (1.7-9.3); MPV 12.6 FL (7.4-10.4); NEUT% 78.2 % (42.2-75.2); PLT 172 X1000 (130-400); RBC 3.26 XMIL (4.2-5.4)
[2016-08-19 06:21] LABS: ALBUMIN 2.6 g/dL (3.5-5.0); CALCIUM 8.2 mg/dL (8.8-10.2); POTASSIUM 3.4 mmol/L (3.5-5.1); RANDOM VANCOMYCIN 14.7 ug/mL (5.0-80); TOTAL BILIRUBIN 0.42 mg/dL (0.20-1.00); TOTAL PROTEIN 6.6 g/dL (6.3-8.3)
[2016-08-19] MEDS: D5W 1,000 ML IV SCH ×2 (06:22→20:27)
[2016-08-19] MEDS: PROTONIX IV SCH (07:35)
[2016-08-19] MEDS: SODIUM CHLORIDE 0.9% INJ SCH (07:37)
[2016-08-19] MEDS ORDERED: POTASSIUM CHLORIDE 40 MEQ/SWI 100 ML IV ONE (07:53)
--- NOTE | 2016-08-19 08:47 | PROGRESS NOTE ---
DATE: 08/19/2016 SUBJECTIVE: Ms. Bernard is moving all extremities. She is much stronger. Still requires sedation and restraint. Still intubated. OBJECTIVE: Vital signs: Temp 97.2 degrees, pulse 90, respirations 20, blood pressure 122/80. HEENT: Pupils are equal and round. Neck: CVP less than 6 cm. Lungs: Clear in all lung lee anterolateral. Cardiovascular: Regular rhythm and rate without murmur or S3. Abdomen: Soft. Skin: Warm and dry. Intake and output: Urine output is 2750. LAB: White count 12,020, hematocrit 26, platelet count 172,000. Sodium 140, potassium 3.4, chloride 96, bicarb 33, BUN 13, creatinine 1.1. Liver functions have been elevated. AST is 116, ALT is 41, alkaline phosphatase 218. ASSESSMENT AND PLAN: 1. A 51-year-old with respiratory failure, bilateral infiltrates. Treating bilateral pneumonia. 2. Underlying ileus which appears to have improved. NG feeding in place. Advance as tolerated. Seems to be tolerating. 3. Positive for cocaine on drug screen when she came in, aware. 4. Elevation of liver enzymes. Of note, she had 1 blood culture from the 12th coagulase-negative Staphylococcus; suspect that is contaminant. REVIEW OF HER ORDERS: On vancomycin and on Zosyn. Getting Lasix 40 mg IV daily. We had stopped the Lasix. Insulin [address] Stevens. Elevated liver enzyme. I do not know if we need to check a hepatitis profile. Could be medication related as well. It seems the only thing that helps with sedation is the Ativan.
[2016-08-19] MEDS: VANCOMYCIN 1,500 MG in NS 250 ML IV SCH (10:15)
--- NOTE | 2016-08-19 10:16 | Diag Imaging Result Document ---
PROCEDURE NAME: CHEST-PORTABLE - 08/19/2016 SINGLE FRONTAL RADIOGRAPH OF THE CHEST: COMPARISON: 08/18/2016. FINDINGS: ET tube and right PICC line are in stable position. NG tube projects below the diaphragm and out of the field of view. There are stable diffuse bilateral infiltrates. No new consolidation is identified. Cardiac silhouette and central vasculature are unchanged. IMPRESSION: Stable chest.
[2016-08-19] MEDS ORDERED: LASIX IV ONE (20:00)
[2016-08-20] MEDS: ATIVAN IV PRN ×3 (00:03→05:41)
[2016-08-20] MEDS: MORPHINE IV PRN ×3 (00:03→05:41)
[2016-08-20] MEDS: ZOSYN 3.375 GM/NS 50 ML IV SCH ×4 (02:27→19:34)
[2016-08-20] MEDS: DUONEB (A & A) INH SCH ×6 (03:10→23:23)
[2016-08-20 04:11] LABS: MANUAL DIFF NEEDED? NO
[2016-08-20 04:24] LABS: ALLEN TEST YES; BLOOD TYPE ARTERIAL; DRAW SITE R RADIAL; METHB 1.3 % (0.0-1.5); O2(CT) 14.8 mL/dL (15.0-23.0); PCO2(98.6) 45 mmHg (35-45); PO2(98.6) 151 mmHg (60-100); SAMPLE BLOOD; SAO2 95.8 % (95.0-100.0); SRATE 12 BPM; THB 10.9 g/dL (11.5-17.4); TVOL 500 mL; pH(98.6) 7.48 (7.35-7.45)
[2016-08-20 04:25] LABS: MODALITY VENTILATOR
[2016-08-20 04:32] LABS: ALBUMIN 2.5 g/dL (3.5-5.0); CALCIUM 8.2 mg/dL (8.8-10.2); POTASSIUM 3.5 mmol/L (3.5-5.1); TOTAL BILIRUBIN 0.36 mg/dL (0.20-1.00)
[2016-08-20 04:34] LABS: BASO% 0.4 % (0.0-0.8); EOS# 0.29 X1000 (0.0-0.7); EOS% 2.2 % (0.0-10.0); HEMOGLOBIN 8.2 g/dL (12.0-16.0); IMM GRAN# 0.03 X1000 (0.0-0.04); IMM GRAN% 0.2 % (0.0-0.5); LYMPH# 1.62 X1000 (1.2-3.4); LYMPH% 12.1 % (20.5-51.1); MCH 24.4 PG (27-31); MCHC 30.4 g/dL (33-37); MCV 80.4 FL (81-99); MONO# 0.53 X1000 (0.11-0.59); MONO% 3.9 % (1.7-9.3); MPV 12.7 FL (7.4-10.4); NEUT% 81.2 % (42.2-75.2); PLT 254 X1000 (130-400); RBC 3.36 XMIL (4.2-5.4)
[2016-08-20] MEDS: PROTONIX IV SCH (07:50)
[2016-08-20] MEDS: SODIUM CHLORIDE 0.9% INJ SCH (07:50)
--- NOTE | 2016-08-20 07:59 | Diag Imaging Result Document ---
PROCEDURE NAME: CHEST-PORTABLE - 08/20/2016 SINGLE FRONTAL RADIOGRAPH OF THE CHEST: COMPARISON: 08/19/2016. FINDINGS: Right PICC line is stable. ET tube is stable. NG tube projects below the diaphragm and out of the field of view. Diffuse bilateral infiltrates are essentially unchanged. No new consolidations identified. Cardiac silhouette is stable. IMPRESSION: Stable chest.
[2016-08-20] MEDS: LASIX IV SCH (08:30)
[2016-08-20] MEDS: LACTULOSE NG SCH ×2 (09:13→20:51)
--- NOTE | 2016-08-20 09:44 | PROGRESS NOTE ---
DATE: 08/20/2016 SUBJECTIVE: Ms. Bernard was extubated but she wore out with respiratory rate above 40 and was reintubated. She appears comfortable now with some sedation. OBJECTIVE: Vital signs: Temp 97.1 degrees, afebrile, pulse 94, respirations 18, blood pressure 110/84. HEENT: Pupils are equal, round, and reactive. Respiratory: Lungs are clear in all lung lee. Cardiovascular: Regular rhythm and rate without murmur or S3. Abdomen: Soft. Skin: Warm and dry. Intake and output: Urine output 535 mL. DIAGNOSTIC STUDIES: Her chest x-ray from this morning, right PICC line stable and ET tube stable. NG tube projects below the diaphragm. Diffuse bilateral infiltrates but essentially unchanged. No new consolidations identified. ASSESSMENT AND PLAN: 1. This is a 51-year-old in respiratory failure, bilateral infiltrates. Slowly able to wean her down but she failed extubation. Treating potential bilateral pneumonia. 2. Underlying ileus. Has not had a bowel movement in about 8 days. We will try some lactulose through the NG feeding a couple times a day. Advance as tolerated. 3. History of positive cocaine on drug screen when she came. 4. Elevation of liver enzymes which have come down nicely. AST was 30, ALT 30, alkaline phos 213. Electrolytes today: Sodium 138, potassium 3.5, chloride 92, bicarb 31, BUN 15, creatinine 1.01. White count 13,420, hematocrit 27 which is stable, hemoglobin at 8.2, platelet count 254,000. REVIEW OF ORDERS: I do not see any change. She is on Lasix 40 mg IV a day, vancomycin daily. We started lactulose, Protonix 40 mg IV q.24 hours, Zosyn q.6 hours.
[2016-08-20] MEDS ORDERED: ROMAZICON IV ONE ×2 (11:17→12:51)
[2016-08-20] MEDS: HALDOL IV PRN (11:43)
[2016-08-20 12:13] LABS: ALLEN TEST YES; BLOOD TYPE ARTERIAL; DRAW SITE R RADIAL; METHB 0.3 % (0.0-1.5); O2(CT) 15.3 mL/dL (15.0-23.0); PCO2(98.6) 44 mmHg (35-45); PO2(98.6) 93 mmHg (60-100); SAMPLE BLOOD; THB 11.3 g/dL (11.5-17.4)
[2016-08-20 12:14] LABS: MODALITY VENTILATOR
[2016-08-20] MEDS: D5W 1,000 ML IV SCH (16:36)
[2016-08-20] MEDS: VANCOMYCIN 1,500 MG in NS 250 ML IV SCH (20:50)
[2016-08-21] MEDS: ZOSYN 3.375 GM/NS 50 ML IV SCH ×4 (01:43→19:38)
[2016-08-21] MEDS: DUONEB (A & A) INH SCH ×6 (03:15→23:51)
[2016-08-21 04:42] LABS: ALLEN TEST YES; BE 8.6 mmoll (-3.0-3.0); BLOOD TYPE ARTERIAL; DRAW SITE R RADIAL; METHB 1.1 % (0.0-1.5); O2(CT) 13.6 mL/dL (15.0-23.0); PCO2(98.6) 43 mmHg (35-45); PO2(98.6) 117 mmHg (60-100); SAMPLE BLOOD; SAO2 95.4 % (95.0-100.0); THB 10.1 g/dL (11.5-17.4); pH(98.6) 7.49 (7.35-7.45)
[2016-08-21 04:46] LABS: MODALITY BI PAP
[2016-08-21 05:40] LABS: BASO% 0.3 % (0.0-0.8); EOS# 0.22 X1000 (0.0-0.7); EOS% 1.4 % (0.0-10.0); HEMATOCRIT 25.6 % (37.0-47.0); IMM GRAN# 0.03 X1000 (0.0-0.04); IMM GRAN% 0.2 % (0.0-0.5); LYMPH# 1.37 X1000 (1.2-3.4); LYMPH% 8.7 % (20.5-51.1); MANUAL DIFF NEEDED? YES; MCH 24.8 PG (27-31); MCHC 31.3 g/dL (33-37); MCV 79.5 FL (81-99); MONO# 0.63 X1000 (0.11-0.59); MPV 12.8 FL (7.4-10.4); NEUT% 85.4 % (42.2-75.2); PLT 323 X1000 (130-400); RBC 3.22 XMIL (4.2-5.4)
[2016-08-21 05:50] LABS: AGAP 14; ALBUMIN 2.7 g/dL (3.5-5.0); ALKALINE PHOSPHATASE 166 U/L (32-104); BUN 12 mg/dL (8-22); CALCIUM 8.5 mg/dL (8.8-10.2); CHLORIDE 89 mmol/L (98-107); COSMO 263; GOT 20 U/L (10-30); GPT 23 U/L (10-36); SODIUM 131 mmol/L (136-145); TCO2 28 mmol/L (25-35); TOTAL BILIRUBIN 0.28 mg/dL (0.20-1.00); TOTAL PROTEIN 6.8 g/dL (6.3-8.3)
[2016-08-21] MEDS: D5W 1,000 ML IV SCH (06:11)
[2016-08-21 07:14] LABS: EOS 1 % (1-10); LYMPHS 7 % (21-51); MONO 5 % (1-9)
--- NOTE | 2016-08-21 07:54 | Diag Imaging Result Document ---
PROCEDURE NAME: CHEST-PORTABLE - 08/21/2016 SINGLE FRONTAL RADIOGRAPH OF THE CHEST: COMPARISON: 08/20/2016. FINDINGS: ET tube projects below the diaphragm and out of the field of view. Right PICC line is stable. Diffuse bilateral infiltrates are stable. No new consolidation is identified. Cardiac silhouette is stable. IMPRESSION: Stable chest.
[2016-08-21] MEDS: LASIX IV SCH (08:20)
[2016-08-21] MEDS: SODIUM CHLORIDE 0.9% INJ SCH (08:20)
[2016-08-21] MEDS: PROTONIX IV SCH (08:20)
[2016-08-21] MEDS: LACTULOSE NG SCH (08:20)
--- NOTE | 2016-08-21 08:40 | Diag Imaging Result Document ---
PROCEDURE NAME: HEAD W/O CONTRAST - 08/20/2016 CT OF THE HEAD WITHOUT CONTRAST: FINDINGS: There is no evidence of mass effect, bleed, or abnormal extraaxial fluid collection. Compared to 07/19/2016, there has been no significant change in the appearance of the brain. Postsurgical changes noted in the calvarium on the left. This was also present at the time of the previous study. There is encephalomalacia in the left occipital lobe which was also present previously. IMPRESSION: Chronic postsurgical and/or ischemic changes. No evidence of acute intracranial disease.
--- NOTE | 2016-08-21 15:57 | PROGRESS NOTE ---
DATE: 08/21/2016 SUBJECTIVE: Today Ms. Bernard continues to be stable. She is just kind of altered, not able to give an interval history. OBJECTIVE: Vital signs: Blood pressure is 114/80, pulse of 107, respirations 22, temperature is 98.4 degrees. General: Ms. Bernard is a 51-year-old, female. She is in bed, under the BiPAP. HEENT: Mucosa is pink and moist. Anicteric and acyanotic. Neck: Supple. Chest: Air entry is bilaterally reduced, but no crepitations. No rhonchi. Cardiovascular: Regular rate and rhythm. Abdomen: Soft. Extremities: No pedal edema. [place]: Patient is confused, altered and lethargic, but is able to nod yes or no. She moves very actively the right side; however, the left side is restricted in movement and there is some rigidity and hypertonicity to it consistent with previous history hemiparesis at least. LABORATORY DATA: WBC is 15.67, hemoglobin is 8, platelet count of 323,000. Chemistry: Sodium is 131, potassium is 3. IMAGING STUDIES: 1. A chest x-ray this morning shows diffuse bilateral infiltrates. No consolidation. 2. A head CT scan that was done yesterday shows chronic postsurgical and/or ischemic changes. There is encephalomalacia in the left occipital lobe which was also present in the previous studies. ASSESSMENT: 1. Acute hypoxemic respiratory failure with bilateral infiltrates. The patient is being treated for bilateral pneumonia, is currently on antibiotics. Colonic ileus. The patient had a rectal tube. Has a lot of bowel movement. We therefore are going to stop the lactulose. 1. History of cocaine abuse. 2. Transaminitis, improved. 3. Hypotension on presentation, improved. PLAN: Patient has been extubated since yesterday. Continues to be remarkably altered, which I think is probably related to the sedatives that she got. We will give her some time and re- evaluate her mental status. Of note, patient has a residual right side hemiparesis.
[2016-08-21] MEDS: HALDOL IV PRN (19:38)
[2016-08-22] MEDS: ZOSYN 3.375 GM/NS 50 ML IV SCH ×4 (01:43→19:21)
[2016-08-22] MEDS: DUONEB (A & A) INH SCH ×6 (03:33→23:50)
[2016-08-22 05:24] LABS: MANUAL DIFF NEEDED? NO
[2016-08-22 05:29] LABS: BASO% 0.4 % (0.0-0.8); EOS# 0.22 X1000 (0.0-0.7); EOS% 1.4 % (0.0-10.0); HEMATOCRIT 26.6 % (37.0-47.0); HEMOGLOBIN 8.4 g/dL (12.0-16.0); IMM GRAN# 0.04 X1000 (0.0-0.04); IMM GRAN% 0.3 % (0.0-0.5); LYMPH# 1.23 X1000 (1.2-3.4); LYMPH% 7.7 % (20.5-51.1); MCH 25.2 PG (27-31); MCHC 31.6 g/dL (33-37); MCV 79.9 FL (81-99); MONO# 1.09 X1000 (0.11-0.59); MONO% 6.8 % (1.7-9.3); MPV 12.4 FL (7.4-10.4); NEUT% 83.4 % (42.2-75.2); PLT 469 X1000 (130-400); RBC 3.33 XMIL (4.2-5.4)
[2016-08-22 07:03] LABS: AGAP 13; BUN 11 mg/dL (8-22); CALCIUM 8.8 mg/dL (8.8-10.2); CHLORIDE 88 mmol/L (98-107); COSMO 262; POTASSIUM 2.7 mmol/L (3.5-5.1); SODIUM 130 mmol/L (136-145); TCO2 29 mmol/L (25-35)
--- NOTE | 2016-08-22 07:33 | Diag Imaging Result Document ---
PROCEDURE NAME: CHEST-PORTABLE - 08/22/2016 SINGLE FRONTAL RADIOGRAPH OF THE CHEST: COMPARISON: 08/21/2016. FINDINGS: Right PICC line is stable. NG tube projects below the diaphragm and out of the field of view. Diffuse increased interstitial markings are stable to marginally improved. No new consolidation is identified. Cardiac silhouette is stable. IMPRESSION: Stable to marginal improvement of diffuse interstitial infiltrates.
[2016-08-22] MEDS: PROTONIX IV SCH (07:39)
[2016-08-22] MEDS: SODIUM CHLORIDE 0.9% INJ SCH (07:39)
[2016-08-22] MEDS: LASIX IV SCH (08:27)
[2016-08-22] MEDS ORDERED: KLOR-CON PO ONE (09:01)
[2016-08-22] MEDS ORDERED: MAGNESIUM SULFATE 2 GM/S.W.I. 50 ML IV ONE (09:01)
[2016-08-22] MEDS: VANCOMYCIN 1,500 MG in NS 250 ML IV SCH (09:02)
[2016-08-22] MEDS: HALDOL IV PRN ×2 (13:26→20:58)
--- NOTE | 2016-08-22 13:48 | PROGRESS NOTE ---
DATE: 08/22/2016 SUBJECTIVE: Today, Ms. Bernard referred to be doing okay. She was just in bed and did not seem to be in any distress. She says she just needed some help. OBJECTIVE: Vital signs: Blood pressure is 141/84, pulse of 101, respirations 28, temperature is 97.7 degrees. General: Ms. Bernard is a 51-year-old, female. She is in bed, not seemingly distressed. HEENT: Mucosa is pink and moist. Anicteric. Acyanotic. Neck: Supple. Chest: Good air entry bilateral. There are a few bilateral crepitations but no rhonchi. Cardiovascular: Regular rate and rhythm. Slightly tachycardic. No murmurs. 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 She is able to voice some basic needs and she is able to move all her extremities the right side more than the left side. LABORATORY DATA: WBC is 115.97, hemoglobin is 8.4, platelet count of 469,000. Chemistry reviewed. Sodium is 130, potassium is 2.7, chloride is 89. Microbiology so far unremarkable. Blood culture which was positive for coag-negative Staph which I think was a contamination. A chest x-ray this morning shows stable to marginal improvement of diffuse interstitial infiltrates. ASSESSMENT: 1. Acute hypoxemic respiratory failure with bilateral infiltrates on x-ray. Patient is on antibiotics including Zosyn and vancomycin. Today is day 10 on Zosyn and vancomycin. We plan to treat this for 14 days. 2. Colonic ileus. This seems to have resolved. The patient was having a lot of bowel movement. We are going to remove the rectal tube. 3. History of cocaine abuse. 4. Transaminitis on presentation. This is improved. 5. Hypotension secondary to sepsis is improved. 6. Altered mental status. I think this is probably multifactorial including medications that patient might have had during the time she was intubated as well as withdrawal from certain medication that she used to be using. I think mentation is gradually getting better. 7. Hypokalemia, we will going to replace this, 8. History of previous cerebrovascular accident with left-sided hemiparesis. PLAN: We are going to continue with the current antibiotics. We are going to discontinue the Sesay catheter and the rectal tube. We will continue with the NG tube feedings. Once patient's mentation gets a little better we will get speech evaluation to assess her swallowing.
[2016-08-22] MEDS: MORPHINE IV PRN (18:15)
[2016-08-23] MEDS: MORPHINE IV PRN ×5 (00:04→19:30)
[2016-08-23] MEDS: DUONEB (A & A) INH SCH ×6 (03:12→23:20)
[2016-08-23] MEDS: ZOSYN 3.375 GM/NS 50 ML IV SCH ×4 (04:13→19:30)
[2016-08-23 08:48] LABS: MANUAL DIFF NEEDED? NO
[2016-08-23] MEDS: PROTONIX IV SCH (08:49)
[2016-08-23] MEDS: SODIUM CHLORIDE 0.9% INJ SCH (08:49)
[2016-08-23] MEDS: HALDOL IV PRN ×2 (08:49→14:03)
[2016-08-23 08:57] LABS: BASO% 0.6 % (0.0-0.8); EOS# 0.11 X1000 (0.0-0.7); EOS% 0.7 % (0.0-10.0); HEMATOCRIT 27.2 % (37.0-47.0); HEMOGLOBIN 8.3 g/dL (12.0-16.0); IMM GRAN# 0.03 X1000 (0.0-0.04); IMM GRAN% 0.2 % (0.0-0.5); LYMPH# 1.09 X1000 (1.2-3.4); LYMPH% 6.9 % (20.5-51.1); MCH 24.7 PG (27-31); MCHC 30.5 g/dL (33-37); MONO# 1.41 X1000 (0.11-0.59); MONO% 8.9 % (1.7-9.3); MPV 11.8 FL (7.4-10.4); NEUT% 82.7 % (42.2-75.2); PLT 712 X1000 (130-400); RBC 3.36 XMIL (4.2-5.4)
[2016-08-23 09:07] LABS: AGAP 13; BUN 14 mg/dL (8-22); CALCIUM 8.5 mg/dL (8.8-10.2); CHLORIDE 95 mmol/L (98-107); COSMO 277; POTASSIUM 2.7 mmol/L (3.5-5.1); SODIUM 137 mmol/L (136-145); TCO2 29 mmol/L (25-35)
--- NOTE | 2016-08-23 11:37 | PROGRESS NOTE ---
DATE: 08/23/2016 SUBJECTIVE: Today Ms. Bernard was actually in bed. She looked a little bit more confused and dazed. OBJECTIVE: HEENT: Mucosa was slightly dry. Anicteric. Acyanotic. Neck: The neck is supple. Chest: Good air entry bilaterally. There is an NG tube in place. Cardiovascular: Regular rate and rhythm. Abdomen: Soft. It was slightly distended. Bowel sounds are present. Extremities: No pedal edema. Central Nervous System: The patient is alert. She is able to say yes or no to questions. She does have a residual left side hemiparesis. LABORATORY DATA: WBC is 15.83, hemoglobin is 8.3, platelet count is 717,000. Chemistry reviewed. Potassium is 2.7. We are going to replace this. ASSESSMENT AND PLAN: 1. Acute hypoxemic respiratory failure with bilateral infiltrates on imaging studies. We think this is likely due to aspirations. The patient is currently on antibiotics, and we are treating this for 14 days, is currently on 11 days of antibiotics. 2. Colonic ileus. This was the main reason why the patient was actually brought in from [place] to here. It seems to have resolved. She is tolerating her nasogastric tube feedings very well. 3. History of cocaine abuse and likely other recreational drugs. I am not quite sure if the patient is withdrawing. 4. Transaminitis is improved. 5. Hypotension secondary to sepsis, resolved. 6. Altered mental status. I think this is multifactorial. The patient continues to be altered. I think this is probably due to medications, recreational drug medication that she has used in the past. We will continue keeping an eye on her mentation. 7. Hypokalemia. We will continue replacing this. 8. History of cerebrovascular accident with left-sided hemiparesis, noted. 9. Thrombocytosis, likely reactive. 10. Clinical dehydration. We will start the patient on gentle IV fluids and recheck on her potassium later this afternoon.
[2016-08-23] MEDS: NS 1,000 ML IV SCH (12:19)
[2016-08-23] MEDS: VANCOMYCIN 1,500 MG in NS 250 ML IV SCH (14:03)
[2016-08-23] MEDS ORDERED: POTASSIUM CHLORIDE 20% LIQUID PO ONE (17:35)
[2016-08-23] MEDS: TYLENOL PO PRN (19:30)
[2016-08-23 20:28] LABS: ALLEN TEST YES; BE 5.4 mmoll (-3.0-3.0); BLOOD TYPE ARTERIAL; DRAW SITE R RADIAL; METHB 1.3 % (0.0-1.5); O2(CT) 11.7 mL/dL (15.0-23.0); PCO2(98.6) 34 mmHg (35-45); PO2(98.6) 214 mmHg (60-100); SAMPLE BLOOD; SAO2 96.8 % (95.0-100.0); THB 8.3 g/dL (11.5-17.4); pH(98.6) 7.53 (7.35-7.45)
[2016-08-23 20:29] LABS: MODALITY BI PAP
[2016-08-23] MEDS ORDERED: TYLENOL LIQUID PO ONE (22:29)
[2016-08-23 23:40] LABS: ALBUMIN 2.9 g/dL (3.5-5.0); CALCIUM 8.2 mg/dL (8.8-10.2); POTASSIUM 3.7 mmol/L (3.5-5.1); TOTAL BILIRUBIN 0.25 mg/dL (0.20-1.00); TOTAL PROTEIN 7.3 g/dL (6.3-8.3)
[2016-08-24] MEDS: ZOSYN 3.375 GM/NS 50 ML IV SCH ×3 (01:50→13:05)
[2016-08-24] MEDS: DUONEB (A & A) INH SCH ×6 (03:00→23:23)
[2016-08-24] MEDS: TYLENOL LIQUID PO PRN ×2 (05:55→17:32)
[2016-08-24 06:57] LABS: CALCIUM 8.7 mg/dL (8.8-10.2); MAGNESIUM 3.2 mg/dL (1.5-2.7); POTASSIUM 3.5 mmol/L (3.5-5.1)
--- NOTE | 2016-08-24 08:22 | Diag Imaging Result Document ---
PROCEDURE NAME: CHEST-PORTABLE - 08/23/2016 SINGLE FRONTAL RADIOGRAPH OF THE CHEST: COMPARISON: 08/22/2016. FINDINGS: Right PICC line is stable. NG tube projects below the diaphragm and is assumed to be in the stomach. The patient is rotated toward the right. Mild diffuse increased interstitial markings bilaterally are essentially stable. There are no new consolidations. Cardiac silhouette is stable. IMPRESSION: Stable chest.
[2016-08-24] MEDS: MORPHINE IV PRN ×3 (08:36→22:00)
[2016-08-24] MEDS: PROTONIX IV SCH (08:36)
[2016-08-24] MEDS: SODIUM CHLORIDE 0.9% INJ SCH (08:36)
--- NOTE | 2016-08-24 15:38 | PROGRESS NOTE ---
DATE: 08/24/2016 Today Ms. Bernard referred to be stable. Per the nursing staff, she is actually not communicating very much. OBJECTIVE: Vital signs: Blood pressure is 128/84, pulse of 105, respiration is 23, temperature is 100.1 degrees. Of note patient has been running temperatures since last night. General: Ms. Bernard is a 51-year-old female. She is in bed. She did not seem to be in any distress. HEENT: Mucosa is slightly dry. Anicteric. Acyanotic. Neck: Supple. Chest: Good air entry bilateral. A few bibasilar crepitations. Cardiovascular: Regular rate and rhythm. Slightly tachycardic. Abdomen: Soft, nontender. Extremities: No pedal edema. 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 She is able to say yes and no and has some crusted lesions on the lower lips. Not quite sure if she bit her lip and she has a left-sided residual hemiparesis. LABORATORY DATA: There is no CBC this morning. CMP: Creatinine is down to 1.0. Rest of the chemistry is unremarkable. Magnesium is actually 3.2, slightly high. ASSESSMENT: 1. Acute hypoxemic respiratory failure with bilateral infiltrates on imaging. We think this is likely due to some aspirations. Patient is currently on vancomycin and Zosyn. However she has been spiking some temperature. I am not quite sure if she has developed any hospital associated ESBL pneumonia. We are going to discontinue the Zosyn and put her on meropenem. 2. Colonic ileus. This was the reason the patient was brought from [place]. She seems to have resolved. 3. History of cocaine abuse and other recreational drug use in the past. Patient is more altered today and not quite sure if she is withdrawing from any of those medications. 4. Transaminitis is improved. 5. Hypotension secondary to sepsis improved. 6. Altered mental status likely multifactorial. 7. History of CVA with left-sided hemiparesis. 8. Thrombocytosis likely reactive. 9. Clinical dehydration. Patient is getting IV fluids. PLAN: Patient has been running temperature. She is tachycardic. Not quite sure if she probably might have aspirated again yesterday. A chest x-ray which was done yesterday was pretty much diffuse increase in interstitial markings and this was early today so I am not quite sure if she probably has aspirated again. We will keep her NPO, suspend the NG tube feedings, hydrate her some more, change the antibiotics. The patient has been re-cultured. Will be waiting on the results on that.
[2016-08-24] MEDS: VANCOMYCIN 1,500 MG in NS 250 ML IV SCH (15:39)
[2016-08-24] MEDS: NS 1,000 ML IV SCH ×2 (17:33)
[2016-08-24] MEDS: MERREM 500 MG in NS 50 ML IV SCH (17:41)
[2016-08-24] MEDS: BLISTEX MEDICATED BERRY LIP BALM TOP PRN (22:00)
[2016-08-25] MEDS: MERREM 500 MG in NS 50 ML IV SCH ×3 (00:08→21:26)
[2016-08-25] MEDS: DUONEB (A & A) INH SCH ×6 (03:14→23:07)
[2016-08-25] MEDS: TYLENOL LIQUID PO PRN (04:40)
[2016-08-25 07:18] LABS: BASO% 0.9 % (0.0-0.8); EOS# 0.24 X1000 (0.0-0.7); EOS% 1.3 % (0.0-10.0); HEMATOCRIT 25.7 % (37.0-47.0); HEMOGLOBIN 7.3 g/dL (12.0-16.0); IMM GRAN% 0.5 % (0.0-0.5); LYMPH# 1.79 X1000 (1.2-3.4); LYMPH% 9.7 % (20.5-51.1); MANUAL DIFF NEEDED? NO; MCH 24.7 PG (27-31); MCHC 28.4 g/dL (33-37); MCV 86.8 FL (81-99); MONO# 2.07 X1000 (0.11-0.59); MONO% 11.2 % (1.7-9.3); MPV 11.2 FL (7.4-10.4); NEUT% 76.4 % (42.2-75.2); PLT 905 X1000 (130-400); RBC 2.96 XMIL (4.2-5.4)
[2016-08-25 07:27] LABS: ALBUMIN 2.6 g/dL (3.5-5.0); CALCIUM 8.8 mg/dL (8.8-10.2); MAGNESIUM 2.8 mg/dL (1.5-2.7); POTASSIUM 3.4 mmol/L (3.5-5.1); TOTAL BILIRUBIN 0.16 mg/dL (0.20-1.00); TOTAL PROTEIN 6.9 g/dL (6.3-8.3)
[2016-08-25] MEDS ORDERED: POTASSIUM CHLORIDE 40 MEQ/SWI 100 ML IV ONE (08:18)
[2016-08-25] MEDS: NS 1,000 ML IV SCH (09:03)
[2016-08-25] MEDS: D5W 1,000 ML IV SCH (09:11)
[2016-08-25] MEDS: PROTONIX IV SCH (09:14)
[2016-08-25] MEDS: SODIUM CHLORIDE 0.9% INJ SCH (09:14)
[2016-08-25 10:34] LABS: URINE SOURCE CATH
[2016-08-25 10:36] LABS: BILIRUBIN URINE NEGATIVE (NEGATIVE); BLOOD URINE NEGATIVE (NEGATIVE); COLOR YELLOW; GLUCOSE URINE NEGATIVE (NEGATIVE); LEUKOCYTES URINE TRACE (NEGATIVE); NITRITE URINE NEGATIVE (NEGATIVE); PH URINE 7.5; PROTEIN URINE 70 mg/dL (NEGATIVE); TURBIDITY URINE CLEAR (CLEAR); URINE MICRO REVIEW NEEDED? YES; UROBILINOGEN URINE NORMAL (NORMAL)
[2016-08-25 10:48] LABS: UR EPITHELIAL CELLS <10 /HPF (<10); URINE BACTERIA NEGATIVE /HPF; URINE CULTURE NEEDED? YES; URINE RBC <10 /HPF (<10); URINE WBC <10 /HPF (<10)
[2016-08-25 11:07] LABS: URINE CASTS NONE SEEN; URINE CRYSTALS NONE SEEN; URINE SMALL ROUND CELLS NONE SEEN
--- NOTE | 2016-08-25 11:25 | Diag Imaging Result Document ---
PROCEDURE NAME: THORAX/ABDOMEN/PELVIS - 08/25/2016 CT OF THE CHEST WITH INTRAVENOUS CONTRAST: FINDINGS: There is interstitial opacity throughout much of the lung parenchyma with dense alveolar consolidation in the right lower lobe. There is a 16 mm right paratracheal node and some nodes are seen in the subcarina. There is an NG tube and a PICC line with the latter with its tip in the superior vena cava just above the right atrium. The NG tube tip is in the stomach. There are some questionable filling defects present in the right lower lobe pulmonary artery branches. No central emboli are demonstrated. The thoracic aorta is not distended, and there is no evidence of dissection. There are some coronary calcifications present. IMPRESSION: Pulmonary edema. Pneumonia, particularly in the right lower lobe. The possibility of minimal distal pulmonary emboli in the right lower lobe cannot be excluded. CT OF THE ABDOMEN WITH INTRAVENOUS AND ORAL CONTRAST: FINDINGS: There is no evidence of hydronephrosis or mass in the kidneys. The spleen and adrenal glands are not enlarged. The liver is unremarkable in appearance. There has been cholecystectomy. The pancreas is unremarkable in appearance. There is contrast in the distal small bowel and ascending colon. There is no evidence of appendicitis. No significant adenopathy is present. CT OF THE PELVIS WITH ORAL AND INTRAVENOUS CONTRAST: FINDINGS: There is fluid and gas in the rectum. There is a Sesay catheter in the bladder. There is no evidence of free fluid or masses. The regional skeleton appears to be intact. IMPRESSION: No evidence of acute disease in the abdomen or pelvis. The findings in the chest were discussed with Dr. Chou by telephone at 1050 hours.
--- NOTE | 2016-08-25 11:43 | PROGRESS NOTE ---
DATE: 08/25/2016 SUBJECTIVE: This morning, Ms. Bernard remained the same. No major changes overnight. She continues to be nonverbal. OBJECTIVE: Vital signs: Blood pressure is 147/93, pulse of 103, respiration 28 , temperature 96.6. Of note, the patient had a temperature of 100.2 earlier this morning. General: Ms. Bernard is a 51-year-old female. She is in bed, seems to be in mild respiratory distress. HEENT: Mucosa is pink and moist, anicteric and acyanotic. Neck: Supple. Chest: Air entry is bilaterally reduced. There are diffuse bilateral crepitations and some end- expiratory wheezes. Cardiovascular: Regular rate and rhythm, no murmur, no rubs, no gallops. Abdomen: Soft, distended but nontender. Extremities: No pedal edema. 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 She is able to follow some basic commands. She is able to open her mouth upon verbal command. She does have left-sided residual hemiparesis from previous stroke. LABORATORY DATA: WBCs 18.5; that is a jump. Hemoglobin is 7.3, platelet count of 905. Sodium 154, potassium 3.4, chloride 118, bicarb 22, creatinine 1.0. ASSESSMENT: 1. Acute hypoxemic respiratory failure with bilateral infiltrates on imaging. The patient was on Zosyn and vancomycin. We had to discontinue the Zosyn and put her on meropenem yesterday because of the suspicion of hospital acquired bugs. Will order CT scan of the chest and abdomen because she is persistently having fever, and her white cells went up, and it looks like she has been just aspirating. We are , therefore, discontinuing the tube feeding for now. 2. Colonic ileus. This was the main reason why patient was brought from [place]. She does not seem to have had any ischemia. We will continue the NG tube but we will not use it to feed for now. 3. History of cocaine abuse and other recreational drug use. I wonder if patient is withdrawing from any of those medications. 4. Altered mental status due to global encephalopathy. The patient continues to be encephalopathic. 5. Hypotension secondary to sepsis. This is improved. 6. History of cerebrovascular accident with left-sided hemiparesis noted. 7. Thrombocytosis likely reactive. This is getting worse. 8. Clinical dehydration. Sodium is now slightly high. We will, therefore, change the fluids and use only D5. Will use only free water. GENERAL PLAN TODAY: We did a CT scan of the chest, abdomen, and pelvis looking for a possible source of infection, because the patient continued to be febrile. However, so far the CT of the chest shows some bilateral infiltrates, more so on the right suggestive of possible aspiration. We are still pending official report. The patient is currently on vancomycin and meropenem. We will switch her fluids to D5 at 75 mL/h. We will replace her potassium today and will review her later on for this afternoon. Of note, her hemoglobin is down to 7.3. We do not see any overt bleeding anywhere. We will keep an eye on this. It is not out of limit of transfusion. We will repeat this for tomorrow. If it continues to drop and it is below 7, we will transfuse her accordingly. We will put a Sesay catheter in to monitor her I's and O's. [facility]
[2016-08-25] MEDS: VANCOMYCIN 1,500 MG in NS 250 ML IV SCH ×2 (15:14)
[2016-08-25] MEDS: VANCOMYCIN 1,700 MG in NS 250 ML IV SCH (15:19)
[2016-08-25] MEDS: LOVENOX SUBQ SCH (15:20)
[2016-08-25] MEDS: MORPHINE IV PRN ×2 (16:30→21:27)
[2016-08-26] MEDS: LOVENOX SUBQ SCH ×2 (00:14→12:21)
[2016-08-26] MEDS: MORPHINE IV PRN ×2 (02:29→21:03)
[2016-08-26] MEDS: D5W 1,000 ML IV SCH (03:29)
[2016-08-26] MEDS: DUONEB (A & A) INH SCH ×6 (03:36→22:34)
[2016-08-26] MEDS: MERREM 500 MG in NS 50 ML IV SCH ×3 (05:41→21:03)
[2016-08-26] MEDS: TYLENOL LIQUID PO PRN (05:41)
[2016-08-26 07:12] LABS: EOS# 0.55 X1000 (0.0-0.7); EOS% 3.8 % (0.0-10.0); HEMATOCRIT 24.3 % (37.0-47.0); HEMOGLOBIN 6.8 g/dL (12.0-16.0); IMM GRAN# 0.07 X1000 (0.0-0.04); IMM GRAN% 0.5 % (0.0-0.5); LYMPH# 2.34 X1000 (1.2-3.4); MANUAL DIFF NEEDED? YES; MCH 24.6 PG (27-31); MONO# 1.36 X1000 (0.11-0.59); MONO% 9.3 % (1.7-9.3); MPV 10.8 FL (7.4-10.4); NEUT% 69.4 % (42.2-75.2); PLT 923 X1000 (130-400); RBC 2.76 XMIL (4.2-5.4)
[2016-08-26 07:23] LABS: AGAP 13; ALBUMIN 2.6 g/dL (3.5-5.0); ALKALINE PHOSPHATASE 98 U/L (32-104); BUN 11 mg/dL (8-22); CALCIUM 8.7 mg/dL (8.8-10.2); CHLORIDE 118 mmol/L (98-107); COSMO 300; GOT 35 U/L (10-30); GPT 24 U/L (10-36); POTASSIUM 3.8 mmol/L (3.5-5.1); SODIUM 151 mmol/L (136-145); TCO2 20 mmol/L (25-35); TOTAL BILIRUBIN 0.15 mg/dL (0.20-1.00); TOTAL PROTEIN 6.6 g/dL (6.3-8.3)
--- NOTE | 2016-08-26 07:29 | Diag Imaging Result Document ---
PROCEDURE NAME: CHEST-1 VIEW - 08/26/2016 AP PORTABLE CHEST, 08/26/2016 AT 0500 HOURS: FINDINGS: There is an NG tube with its tip below the diaphragm and a right sided PICC line with its tip in the superior vena cava. The lungs are slightly better expanded than on 08/23/2016. There is still some atelectasis or pneumonia particularly in the right lower lobe. There is presumably some interstitial pulmonary edema as well. IMPRESSION: Pulmonary edema with right lower lobe atelectasis versus pneumonia.
[2016-08-26 07:53] LABS: BANDS 8 % (0-1); EOS 4 % (1-10); HYPOCHROM 1+; LYMPHS 12 % (21-51); MONO 12 % (1-9); POLYCHROM 1+
[2016-08-26] MEDS ORDERED: NS 500 ML IV ONE ×2 (08:08→08:09)
[2016-08-26] MEDS: SODIUM CHLORIDE 0.9% INJ SCH (08:53)
[2016-08-26] MEDS: PROTONIX IV SCH (08:53)
[2016-08-26] MEDS ORDERED: LASIX IV ONE (10:33)
--- NOTE | 2016-08-26 12:41 | PROGRESS NOTE ---
DATE: 08/26/2016 SUBJECTIVE: This morning, Ms. Bernard referred to be doing so-so. Was not able to give any interval history. She was on a BiPAP. OBJECTIVE: Vital Signs: Blood pressure is 148/79, pulse of 94, respirations are 22, temperature is 95.6 degrees. General Examination: Ms. Bernard is a 51-year-old, female. She is in bed, seems to be in mild respiratory distress. HEENT: Mucosa is pink and moist. Anicteric and acyanotic. Neck: Supple. Chest: Air entry is bilaterally reduced. There are crepitations and end-expiratory rhonchi bilateral. Cardiovascular: Regular rate and rhythm. No murmurs. Abdomen: Soft, nontender. No hepatosplenomegaly. Extremities: No pedal edema. 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 Seems to be oriented to person. Is not able to participate very much in interrogation because of the BiPAP. Follows some commands and has a left-sided hemiparesis. Laboratory Data: WBC is down to 14.66, hemoglobin is 6.8, platelet count of 923 ,000. Sodium is 151, potassium is 3.8, chloride is 118, bicarb is 20. A CT scan of the abdomen and pelvis which was done yesterday showed pulmonary edema, pneumonia, particularly in the right lower lobe. Possibility of minimal distal pulmonary emboli in the right lower lobe could not be excluded. A CT of the abdomen showed no evidence of acute disease in the abdomen and pelvis. A chest x-ray done this morning shows pulmonary edema with right lower lobe atelectasis versus pneumonia. ASSESSMENT: 1. Acute hypoxemic respiratory failure with bilateral infiltrates on imaging. On presentation, we thought this was some aspiration pneumonia. 2. Right lower lobe pneumonia. This seems to be new. We are not sure if it has been part of the aspiration or it is a hospital associated pneumonia. Patient is currently on meropenem and vancomycin. 3. Colonic ileus, resolved. 4. History of cocaine abuse and other recreational drug abuse noted. 5. Altered mental status due to global encephalopathy. Patient continues to be encephalopathic but the mentation is improving. 6. Hypotension on presentation due to sepsis, resolved. 7. Thrombocytosis, likely reactive. 8. Clinical dehydration. We will continue using D5. 9. Pulmonary edema. I think this probably is also contributing to the patient' s respiratory distress. We will give a dose of Lasix and be very mindful with the intravenous fluids that the patient is getting. 10. Normocytic anemia. I think this is probably the cause of the acute illness. Patient has not shown any overt bleeding. We would group and crossmatch, and give a unit of blood. 11. Critical illness polymyoneuropathy . The patient will continue with physical rehabilitation. 12. Hypernatremia. This is improving. Patient will continue with free water. 13. Nutritional needs. We are going to advanced the nasogastric tube and recheck a chest x-ray. If it is now in the stomach instead of in the tip of the diaphragm, then we will start her tube feedings and stop the intravenous fluids. 14. Suspected Right lower lobe PE. will order D-dimer and leg us to be sure. If negative, will stop the anticoagulation. In general, patient seems to be stable. We will continue the BiPAP for now. Continue with the current antibiotics. We will advance the nasogastric tube and take a chest x-ray. If it is better, we will start her on the nasogastric tube feedings. I think patient in general is going to be here in the hospital for a little while because of all the comorbidities. Eventually, when she is ready to be discharged, I think she needs to go to rehabilitation because of the muscle loss. Addendum: cxr review: worsening pulmonary edema DC IV fluid start NGT feeding at lower rate 30cc/hr 100 of free water flushes to help correct hypernatremia. continue aspiration precautions. Plan discussed with Nurse critical time spent 45m APOORVA
[2016-08-26] MEDS: VANCOMYCIN 1,700 MG in NS 250 ML IV SCH (14:45)
--- NOTE | 2016-08-26 16:34 | Diag Imaging Result Document ---
PROCEDURE NAME: CHEST-PORTABLE - 08/26/2016 PORTABLE CHEST AND ABDOMEN FOR NG TUBE PLACEMENT AT 1045 HOURS: FINDINGS: There is an NG tube with its tip below diaphragm presumably in the stomach. There is still some hazy opacity in both lower lung lee. IMPRESSION: NG tube in the stomach.
--- NOTE | 2016-08-26 16:53 | Diag Imaging Result Document ---
PROCEDURE NAME: CHEST-1 VIEW - 08/26/2016 AP CHEST: FINDINGS: There is an NG tube with its tip below the diaphragm. There is worsened alveolar opacity in the right base compared to at 0500 hours. IMPRESSION: Worsened pulmonary edema.
[2016-08-27] MEDS: DUONEB (A & A) INH SCH ×6 (03:05→22:45)
[2016-08-27 04:45] LABS: ALLEN TEST YES; BE -2.5 mmoll (-3.0-3.0); BLOOD TYPE ARTERIAL; DRAW SITE R RADIAL; O2(CT) 13.1 mL/dL (15.0-23.0); PCO2(98.6) 30 mmHg (35-45); PO2(98.6) 124 mmHg (60-100); SAMPLE BLOOD; SAO2 97.2 % (95.0-100.0); THB 9.5 g/dL (11.5-17.4); pH(98.6) 7.45 (7.35-7.45)
[2016-08-27 04:46] LABS: MODALITY BI PAP
[2016-08-27] MEDS: MERREM 500 MG in NS 50 ML IV SCH ×3 (05:11→21:55)
[2016-08-27] MEDS: LOVENOX SUBQ SCH (05:12)
[2016-08-27] MEDS: MORPHINE IV PRN (05:23)
--- NOTE | 2016-08-27 07:23 | Diag Imaging Result Document ---
PROCEDURE NAME: CHEST-PORTABLE - 08/27/2016 PORTABLE CHEST X-RAY, 08/27/2016: COMPARISON: 08/26/2016. FINDINGS: Stable support lines and tubes in good position. There is no significant change in the diffuse bilateral faint interstitial opacities suggesting pulmonary edema, particularly when compared with 08/26/2016 at 0500 hours. No new infiltrates. Heart size remains top normal. IMPRESSION: No change from prior.
[2016-08-27] MEDS ORDERED: NS 500 ML IV ONE (07:56)
[2016-08-27] MEDS: PROTONIX IV SCH ×2 (08:24→21:55)
[2016-08-27 08:27] LABS: BASO% 1.2 % (0.0-0.8); EOS# 0.61 X1000 (0.0-0.7); EOS% 4.6 % (0.0-10.0); HEMATOCRIT 30.5 % (37.0-47.0); HEMOGLOBIN 9.2 g/dL (12.0-16.0); IMM GRAN# 0.12 X1000 (0.0-0.04); IMM GRAN% 0.9 % (0.0-0.5); LYMPH% 20.5 % (20.5-51.1); MANUAL DIFF NEEDED? YES; MCH 25.4 PG (27-31); MCHC 30.2 g/dL (33-37); MCV 84.3 FL (81-99); MONO# 1.12 X1000 (0.11-0.59); MONO% 8.5 % (1.7-9.3); MPV 10.7 FL (7.4-10.4); NEUT% 64.3 % (42.2-75.2); PLT 989 X1000 (130-400); RBC 3.62 XMIL (4.2-5.4)
[2016-08-27 08:46] LABS: AGAP 15; ALBUMIN 2.8 g/dL (3.5-5.0); ALKALINE PHOSPHATASE 105 U/L (32-104); BUN 12 mg/dL (8-22); CALCIUM 9.1 mg/dL (8.8-10.2); CHLORIDE 112 mmol/L (98-107); COSMO 292; GOT 20 U/L (10-30); GPT 24 U/L (10-36); MAGNESIUM 2.2 mg/dL (1.5-2.7); POTASSIUM 3.3 mmol/L (3.5-5.1); SODIUM 147 mmol/L (136-145); TCO2 20 mmol/L (25-35); TOTAL BILIRUBIN 0.23 mg/dL (0.20-1.00); TOTAL PROTEIN 7.4 g/dL (6.3-8.3)
[2016-08-27 08:49] LABS: EOS 4 % (1-10); LYMPHS 26 % (21-51); MONO 6 % (1-9)
[2016-08-27 08:50] LABS: LARGE PLATELETS 1+
[2016-08-27 14:10] LABS: RETIC% 1.99 % (0.8-2.1); RETIC-HE 27.7 PG (28.2-36.6)
[2016-08-27 14:25] LABS: IRON SATURATION 14 %; TIBC 162 ug/dL; TOTAL IRON 22 ug/dL (49-151); UNBOUND IRON 140 ug/dL (112-346)
[2016-08-27] MEDS: VANCOMYCIN 1,700 MG in NS 250 ML IV SCH (14:41)
--- NOTE | 2016-08-27 20:48 | PROGRESS NOTE ---
DATE: 08/27/2016 SUBJECTIVE: She was sleeping, did not arouse. Appears comfortable. Has BiPAP machine on. OBJECTIVE: Vital signs: Temperature 98.8 degrees, pulse 102, respirations 30, blood pressure 125/93, CVP less than 6 cm. Respiratory: Lungs are clear anterolateral. Cardiovascular: Regular rhythm and rate without murmur or S3. Abdomen: Soft. Skin: Is warm and dry. : Good urine output. PERTINENT DATA: White count 13,170, hematocrit 30, platelet count 989,000. Chemistry: Sodium 147, potassium 3.3, chloride 112, bicarb 12, creatinine 0.8. Serum iron was 22, total iron binding capacity 162. Ferritin was 140. We had a chest x-ray done today. No change from prior, stable support lines, tubes in good position. There is no significant change in diffuse bilateral faint interstitial opacities suggesting pulmonary edema, particularly when compared with 08/26/2016. No new infiltrate. ASSESSMENT AND PLAN: 1. Acute hypoxemic respiratory failure. Bilateral infiltrates on imaging on presentation. Radiograph review, seems to be getting better. Thought this was aspiration pneumonia. 2. Right lower lobe pneumonia. Seems to be new. Not sure it has been part of the aspiration. Currently on meropenem and vancomycin. 3. Chronic ileus, resolved. 4. History of cocaine abuse and other recreational drugs. Aware. 5. Altered mental status due to global encephalopathy. Patient continues to be encephalopathic, but the mentation is apparently slowly improving. 6. Hypotension. Presented due to the sepsis. This is resolved. 7. Thrombocytosis. Likely reactive. 8. Clinical dehydration. Continue using D5 water. 9. Pulmonary edema, probably also contributing to the patient's respiratory distress and has been given Lasix as needed periodically. 10. Normocytic anemia. [place] that this is probably secondary to acute illness. 11. Critical illness. Polymyoneuropathy. The patient continues to have physical rehabilitation. Continue physical therapy. 12. Hyponatremia, which is improved. 13. Nutritional needs. Advance her nasogastric tube and recheck chest x-ray. She is on tube feedings. 1. Suspected right lower lobe pulmonary emboli. To be sure it is negative, and then we will stop the anticoagulation. Continues to require BiPAP. Apparently there is some neurologic improvement. Continue tube feedings. Continue physical therapy. Review orders. I do not know of any change at this point. On meropenem and vancomycin, Protonix 40 mg intravenously twice a day.
--- NOTE | 2016-08-27 22:46 | CONSULTATION ---
DATE OF CONSULTATION: 08/27/2016 CHIEF COMPLAINT: Thrombocytosis. HISTORY OF PRESENT ILLNESS: Ms. Bernard is a 51-year-old, female with a history of hypertension, COPD, gastroesophageal reflux disease, cocaine abuse and medical noncompliance. The patient presented to the [facility] Emergency Department complaining of 3 days of nausea, vomiting, cough and congestion with a productive cough of yellow and brown sputum. Additionally, she complained of abdominal pain. CT of the abdomen and pelvis revealed colonic ileus of the proximal colon. Additionally, the patient was found to have a white blood cell count of 17 with a sodium of 125 and a potassium at 2.8. Urine drug screen was positive for cocaine at the time of admission. Presently, the patient is found to have a hemoglobin of 6.8, and a platelet count of 923,000. We are consulted for thrombocytosis. PAST MEDICAL HISTORY: 1. Cocaine abuse. 2. Bipolar disorder. 3. Hypertension. 4. COPD. 5. Gastroesophageal reflux disease. 6. History of stroke. 7. Medical noncompliance. 8. Tobacco abuse. PAST SURGICAL HISTORY: 1. Cholecystectomy. 2. section. 3. Back surgery. 4. Hernia repair. SOCIAL HISTORY: The patient smokes 1 pack cigarettes daily and uses cocaine daily. FAMILY HISTORY: Negative for any hematologic or oncologic problems. ALLERGIES: Bactrim and sulfa which cause anaphylaxis. MEDICATIONS ON ADMISSION: 1. Haldol. 2. Lacri-Lube ophthalmic ointment. 3. Protonix. 4. Zofran. REVIEW OF SYSTEMS: A 14-point review of systems was attempted and is unable to be obtained at this time. This patient is extremely somnolent and confused. PHYSICAL EXAMINATION: General: Ms. Bernard is a 51-year-old female lying supine in bed on BiPAP, profoundly somnolent and confused at this time. Vital signs: Temperature 99.3, blood pressure 137/95, heart rate 115, respirations 25, O2 saturation is 98% on BiPAP. HEENT: Normocephalic, atraumatic. Mucous membranes are pale and dry. Sclerae is anicteric. Extraocular movements intact. Neck: Supple. Lungs: With coarse breath sounds throughout. CARDIOVASCULAR: S1-S2 is heard without murmur, rub or gallop. The patient is tachycardic. Abdomen: Soft and distended. Positive tenderness throughout. Bowel sounds are decreased throughout. Extremities: Without clubbing, cyanosis, or edema. Dermatologic: No rashes, bruises or lesions. Neurologic: The patient is profoundly somnolent. She is lying supine in bed. Confused. She has no focal deficits that is apparent. LABORATORY DATA: Sodium 151, potassium 3.8, chloride 118. CO2 is 20, BUN 11, creatinine 0.9, glucose is 115. Hemoglobin 6.8, hematocrit 24.3, white blood cell count is 14.66, platelets 923,000. ANC is 10.20, MCV is 88, MCHC is 28. IMAGING: Chest x-ray reveals pulmonary edema. CT of the chest, abdomen and pelvis reveals no acute disease. ASSESSMENT AND PLAN: 1. Thrombocytosis which is reactive versus myeloproliferative. We will check iron studies, vitamin B12 level, folate, reticulocyte count, erythropoietin and JAK2 mutation at this time. 2. Hypochromic anemia of questionable etiology. We will obtain iron studies at this time to assess the patient for any iron deficiency anemia. 3. Colonic ileus, which is currently resolved. 4. Acute respiratory failure with right lower lobe pneumonia, currently on meropenem and vancomycin. Presently the patient is on BiPAP with an oxygen saturation of 98%. 5. Cocaine abuse. The patient has no plans for quitting. 6. Tobacco abuse. The patient again has no plans for tobacco cessation according to prior note. We will follow along with you and make further recommendations pending outcomes. The above reflects the history, examination, assessment and plan of Dr. Concepcion. Dictated by PREETI Begum for Sid Concepcion MD
[2016-08-28] MEDS: DUONEB (A & A) INH SCH ×6 (03:03→23:16)
[2016-08-28] MEDS: MERREM 500 MG in NS 50 ML IV SCH ×3 (05:40→20:01)
[2016-08-28 08:00] LABS: BASO% 0.9 % (0.0-0.8); EOS# 0.57 X1000 (0.0-0.7); EOS% 4.1 % (0.0-10.0); HEMATOCRIT 30.7 % (37.0-47.0); HEMOGLOBIN 9.2 g/dL (12.0-16.0); IMM GRAN% 0.7 % (0.0-0.5); LYMPH# 2.39 X1000 (1.2-3.4); LYMPH% 17.1 % (20.5-51.1); MANUAL DIFF NEEDED? YES; MCH 25.2 PG (27-31); MCV 84.1 FL (81-99); MONO# 1.16 X1000 (0.11-0.59); MONO% 8.3 % (1.7-9.3); MPV 10.6 FL (7.4-10.4); NEUT% 68.9 % (42.2-75.2); PLT 965 X1000 (130-400); RBC 3.65 XMIL (4.2-5.4)
[2016-08-28 08:07] LABS: AGAP 16; BUN 14 mg/dL (8-22); CALCIUM 9.1 mg/dL (8.8-10.2); CHLORIDE 115 mmol/L (98-107); COSMO 296; POTASSIUM 3.7 mmol/L (3.5-5.1); SODIUM 149 mmol/L (136-145); TCO2 18 mmol/L (25-35)
[2016-08-28 08:19] LABS: BANDS 6 % (0-1); EOS 6 % (1-10); LYMPHS 26 % (21-51)
[2016-08-28 08:20] LABS: LARGE PLATELETS 1+
[2016-08-28] MEDS: SODIUM CHLORIDE 0.9% INJ SCH ×2 (09:05→20:01)
[2016-08-28] MEDS: PROTONIX IV SCH ×2 (09:05→20:01)
[2016-08-28] MEDS ORDERED: VENOFER IV ONE (13:12)
[2016-08-28] MEDS: VANCOMYCIN 1,700 MG in NS 250 ML IV SCH (14:14)
[2016-08-28 14:21] LABS: UR AMPHETAMINES QUAL NONE DETECTED (NONE DETECT); UR BARBITUATES QUAL NONE DETECTED (NONE DETECT); UR BENZODIAZEPIN QUAL NONE DETECTED (NONE DETECT); UR CANNABINOIDS QUAL NONE DETECTED (NONE DETECT); UR COCAINE QUAL NONE DETECTED (NONE DETECT); UR METHADONE QUAL NONE DETECTED (NONE DETECT); UR OPIATES QUAL PRESUMPTIVE POSITIVE (NONE DETECT); UR OXYCODONE QUAL NONE DETECTED (NONE DETECT); UR PCP QUAL NONE DETECTED (NONE DETECT)
[2016-08-28 15:11] LABS: BE -0.8 mmoll (-3.0-3.0); BLOOD TYPE ARTERIAL; O2(CT) 12.8 mL/dL (15.0-23.0); PCO2(98.6) 27 mmHg (35-45); PO2(98.6) 102 mmHg (60-100); SAMPLE BLOOD; THB 9.4 g/dL (11.5-17.4); pH(98.6) 7.51 (7.35-7.45)
--- NOTE | 2016-08-28 15:11 | Diag Imaging Result Document ---
PROCEDURE NAME: CHEST-PORTABLE - 08/28/2016 SEMIUPRIGHT PORTABLE CHEST: COMPARISON: 08/27/2016. FINDINGS: No change in the right-sided PICC line or in the nasogastric tube. Worsening infiltrates in the mid and lower left lung compared to the prior study. The heart is not enlarged. No pleural effusion is identified. IMPRESSION: Worsening infiltrates in the left lung.
[2016-08-28 15:14] LABS: MODALITY BI PAP
[2016-08-28 15:21] LABS: DRAW SITE R BRACHIAL
[2016-08-28 15:22] LABS: ALLEN TEST NO
--- NOTE | 2016-08-28 17:23 | PROGRESS NOTE ---
DATE: 08/28/2017 SUBJECTIVE: The patient was sleeping on BiPAP. She only arouses to aggressive physical stimulation. She did not appear to be in any distress. However patient does not try to answer any questions or follow any commands. OBJECTIVE: Vital Signs: Temperature was 99.1 degrees, heart rate 110, respirations 32, blood pressure 126/93, O2 is 90% on BiPAP. PHYSICAL EXAM: General: Patient is not easy to arouse. She does not follow commands. She does not answer questions. When you physically arouse her she starts coughing and she will open her eyes. CV: S1, S2 appreciated. No murmurs, gallops, rubs noted. Respiratory: Bilateral respiratory lung sounds are relatively clear. Abdomen: Soft, nontender, nondistended. Skin: Warm, dry, and intact. LABORATORY DATA: White count 13, hemoglobin 9, hematocrit 30, platelet count is 965,000. Chemistry: Sodium 147 that is down from 151, potassium of 3.3, BUN 12, creatinine 0.8, blood glucose was 103. ASSESSMENT/PLAN: 1. Acute hypoxic respiratory failure secondary to pneumonia. 2. Right lower lobe pneumonia. Patient currently on meropenem and vancomycin. 3. Chronic ileus resolved. 4. Cocaine abuse as well as other recreational drug history. Aware. Denied rehab because of drug use. 5. Hypotension. Presented due to sepsis. This is resolved. 6. Thrombocytosis. Dr. Concepcion consulted. It is reactive versus myeloproliferative. They are checking some studies. 7. Clinical dehydration. Continue using D5W. 8. Pulmonary edema. Possibly contributed to the patient's respiratory distress and has been given Lasix p.r.n. periodically. 9. Normocytic anemia secondary to acute illness. 10. Critical illness polymyoneuropathy. The patient continues to need physical rehabilitation. Will continue with physical therapy. 11. Hyponatremia has improved. 12. Nutritional needs. Continue with tube feeding. 13. Altered mental status. The patient has some decrease in mentation. Dr. Gonzalez and myself spoke with the RN who is taking care of her. She stated that yesterday she was more responsive. She would follow some commands. She would look at you when you would talk to her. Per the night shift manager report patient had a visitor last night and since that time, she has been hard to arouse, did not follow any commands and has not had any change from that last night. RN today could not get her to follow any commands or acknowledge her. When Dr. Gonzalez and myself were in the room the patient would open her eyes to aggressive physical stimuli however she would not follow any commands but she would wake up and cough and then go right back to sleep. We are going to check an ABG as well as a urine drug screen and get a followup chest x-ray. I am going to check a chest x-ray to rule out any aspiration as she is on tube feeds. 14. Suspected right lower lobe pulmonary emboli. The patient's D-dimer was elevated at 2.86. Do not have the results of her Doppler ultrasounds. Her correction her anticoagulation has been stopped. 15. Patient will continue on IV antibiotics as well as bronchodilators. Further recommendations to follow chest x-ray, ABG as well as urine drug screen. Dictated by PREETI Rankin for Jordy Gonzalez MD
--- NOTE | 2016-08-28 17:29 | PROGRESS NOTE ---
DATE: 08/28/2016 Ms. Bernard was sleepy. She did seem to awaken and arouse and start coughing. She was on the BiPAP. Otherwise did not respond or try to answer questions and this is the way she was yesterday as well. Chest x-ray from today, worsening infiltrates in the left lung with no change in the right-sided PICC line or NG tube, worsening infiltrates in the mid and lower left lung compared to prior study. Heart is not enlarged. EXAM: Afebrile. Temp 99.6 degrees, pulse 108, respirations 30, blood pressure 130/81.HEENT: Pupils are equal, round, reactive to light and accommodation. Oral and nasal mucosa unremarkable. Conjunctivae pink. Sclerae clear. Tympanic membranes intact. Neck: Supple without adenopathy or thyromegaly. CVP less than 6 cm. Lungs: Clear anterolateral. Cardiovascular: Regular rhythm and rate without murmur or S3. Abdomen: Soft. Skin: Warm and dry. No pedal edema. White blood cell count 23093, hematocrit was 30, platelet count 965,000. Sodium 149, potassium 3.7, chloride 115. BUN 14, creatinine 0.9. Total iron was 22, total iron-binding capacity 162. We did get a urine drug screen. She is presumptive positive for opiates. Blood gases, pH 0.751, pCO2 was 27, PO2 was 102 on the BiPAP. BiPAP of 40%, FiO2 14/8 is pressures. ASSESSMENT AND PLAN: 1. Acute hypoxemic respiratory failure. Was on the ventilator for some time. She has bilateral infiltrates. The left seems to be getting a little worse. We may need to just shut off the NG tube feeding. I guess there is a possibility still of some aspiration. She has been lethargic for 48 hours. Apparently was waking up doing better. It is interesting that her urine drug screen is positive for opiates. 2. Right lower lobe pneumonia which is better, left side seems to be showing some infiltrates. 3. Chronic ileus which has resolved. 4. History of cocaine abuse in the past. 5. She has global encephalopathy and not sure how we are doing clinically, certainly not improving the last couple days. 6. Hypotension when she arrived, suspect sepsis. May also have had some influence of cocaine. This is better, blood pressure better. 7. Thrombocytosis which is reactive. 8. Dehydration which is improved. 9. Pulmonary edema which is improved. 10. Normocytic anemia. Blood count is stable. Reviewing her lab, hematocrit is stable. Electrolytes look good. Review of her orders: She is on vancomycin, Protonix 40 mg twice a day, meropenem 500 mg q.8. She gets morphine as needed. I will stop the morphine altogether and she is still very lethargic.
[2016-08-29] MEDS: DUONEB (A & A) INH SCH ×6 (03:27→23:40)
[2016-08-29] MEDS: MERREM 500 MG in NS 50 ML IV SCH ×3 (04:03→20:07)
[2016-08-29 07:43] LABS: BASO% 0.8 % (0.0-0.8); EOS# 0.64 X1000 (0.0-0.7); EOS% 4.1 % (0.0-10.0); HEMOGLOBIN 8.9 g/dL (12.0-16.0); IMM GRAN# 0.31 X1000 (0.0-0.04); LYMPH# 2.72 X1000 (1.2-3.4); LYMPH% 17.4 % (20.5-51.1); MANUAL DIFF NEEDED? YES; MCH 25.3 PG (27-31); MCHC 29.7 g/dL (33-37); MCV 85.2 FL (81-99); MONO# 1.18 X1000 (0.11-0.59); MONO% 7.6 % (1.7-9.3); MPV 10.1 FL (7.4-10.4); NEUT% 68.1 % (42.2-75.2); PLT 875 X1000 (130-400); RBC 3.52 XMIL (4.2-5.4)
[2016-08-29 07:54] LABS: AGAP 14; ALBUMIN 2.7 g/dL (3.5-5.0); ALKALINE PHOSPHATASE 87 U/L (32-104); BUN 13 mg/dL (8-22); CALCIUM 8.6 mg/dL (8.8-10.2); CHLORIDE 114 mmol/L (98-107); COSMO 293; GOT 29 U/L (10-30); GPT 25 U/L (10-36); MAGNESIUM 2.3 mg/dL (1.5-2.7); POTASSIUM 3.4 mmol/L (3.5-5.1); SODIUM 147 mmol/L (136-145); TCO2 19 mmol/L (25-35); TOTAL BILIRUBIN 0.22 mg/dL (0.20-1.00)
--- NOTE | 2016-08-29 07:58 | Diag Imaging Result Document ---
PROCEDURE NAME: CHEST-PORTABLE - 08/29/2016 AP PORTABLE CHEST AT 0500 HOURS: FINDINGS: There is an NG tube with its tip in the stomach and a PICC line with its tip in the superior vena cava. There is interstitial pulmonary edema generally. There is denser opacification in the retrocardiac region of the left lower lobe probably due to atelectasis and this has also not changed significantly since 08/28/2016. IMPRESSION: Pulmonary edema. Left lower lobe atelectasis.
[2016-08-29 08:14] LABS: BANDS 4 % (0-1); LARGE PLATELETS OCCASIONAL; LYMPHS 14 % (21-51); MONO 8 % (1-9)
[2016-08-29] MEDS: PROTONIX IV SCH ×2 (08:34→20:07)
[2016-08-29] MEDS: SODIUM CHLORIDE 0.9% INJ SCH ×2 (08:34→20:07)
[2016-08-29] MEDS ORDERED: CALMOSEPTINE OINTMENT TOP PRN (09:53)
[2016-08-29] MEDS ORDERED: VENOFER IV ONE (13:15)
--- NOTE | 2016-08-29 16:26 | PROGRESS NOTE ---
DATE: 08/29/2016 SUBJECTIVE: She is still on BiPAP. She is breathing comfortably, but she is very lethargic. You cannot arouse her. She does moan. She does move all her extremities, but not waking up much and not eating. I do not appreciate any new focal neurologic deficits. Just very lethargic. We have taken her off all medications that could be lethargic or sedating. OBJECTIVE: Vital Signs: Exam today, temperature 99.2, pulse 99, respirations 26, blood pressure 131/88. Eyes: Pupils are equal and round. Lungs: Are clear, anterior, lateral, posterior. Cardiovascular: Regular rhythm and rate without murmur or S3. Abdomen: Soft. Skin: Warm and dry. : Urine output 450 mL, actually more than that. LAB: White count 15,620, hematocrit 30, platelet count 875,000. Sodium 147, potassium 3.4, chloride 114, bicarb 19, BUN 13, creatinine 0.8. Calculated osmolality 293, albumin 2.7. Chest x- ray: Pulmonary edema. Left lower lobe atelectasis. NG tube with tip in the stomach. PICC line is tip in the superior vena cava. There is interstitial pulmonary edema generally and denser opacification of the retrocardiac region, left lower lobe, probably due to atelectasis and has not changed significantly from 08/20/2013. ASSESSMENT AND PLAN: 1. She presented with acute hypoxemic respiratory failure and was on the ventilator for some time. She is now still requiring BiPAP. She still has some pulmonary venous hypertension. 2. Lethargy. I am not sure why she is still so lethargic. Does have a history of cocaine use and I suspect other drug use in the past. This may be residual encephalopathy from drug abuse. 3. Treated her for a right lower lobe pneumonia. Still on antibiotics. 4. Blood pressure, appears to be okay. 5. Thrombocytosis, which appears to have improved. Platelet count still runs 800 to 900,000. Review of her orders. Still on vancomycin 1500 mg q.24 hours. She is on Protonix 40 mg b.i.d. She is on meropenem 500 mg IV q.8. She got iron IV. I am going to check lab again in the morning. Supplement the potassium. Fluids right now, or keep vein open. Recheck her chest x-ray again in the morning. I am not sure why she is still so lethargic.
[2016-08-29] MEDS: NS IV SCH (17:24)
[2016-08-29] MEDS: FOLIC ACID IV SCH (17:24)
[2016-08-29] MEDS: VANCOMYCIN 1,500 MG in NS 250 ML IV SCH (17:39)
[2016-08-30] MEDS: DUONEB (A & A) INH SCH ×6 (03:16→23:01)
[2016-08-30] MEDS: MERREM 500 MG in NS 50 ML IV SCH ×3 (04:11→21:03)
[2016-08-30 04:40] LABS: ALLEN TEST YES; BE -4.2 mmoll (-3.0-3.0); BLOOD TYPE ARTERIAL; DRAW SITE L RADIAL; METHB 1.4 % (0.0-1.5); O2(CT) 6.4 mL/dL (15.0-23.0); PCO2(98.6) 29 mmHg (35-45); PO2(98.6) 105 mmHg (60-100); SAMPLE BLOOD; SAO2 98.5 % (95.0-100.0); THB 4.6 g/dL (11.5-17.4); pH(98.6) 7.44 (7.35-7.45)
[2016-08-30 04:41] LABS: MODALITY BI PAP
--- NOTE | 2016-08-30 06:39 | Diag Imaging Result Document ---
PROCEDURE NAME: CHEST-PORTABLE - 08/30/2016 PORTABLE CHEST: COMPARISON: 08/29/2016. FINDINGS: No change in the position of the right-sided PICC line. Nasogastric tube overlies the esophagus and stomach. The lungs are well expanded. The heart is not enlarged. Mild increased interstitial markings fairly similar to that of the prior exam. No pleural effusions identified. No consolidation. IMPRESSION: Fairly stable chest.
[2016-08-30 07:33] LABS: BASO% 0.9 % (0.0-0.8); EOS# 0.66 X1000 (0.0-0.7); EOS% 3.8 % (0.0-10.0); HEMATOCRIT 30.1 % (37.0-47.0); HEMOGLOBIN 8.8 g/dL (12.0-16.0); IMM GRAN# 0.38 X1000 (0.0-0.04); IMM GRAN% 2.2 % (0.0-0.5); LYMPH# 2.58 X1000 (1.2-3.4); LYMPH% 14.7 % (20.5-51.1); MANUAL DIFF NEEDED? YES; MCH 25.5 PG (27-31); MCHC 29.2 g/dL (33-37); MCV 87.2 FL (81-99); MPV 10.2 FL (7.4-10.4); NEUT% 70.4 % (42.2-75.2); PLT 729 X1000 (130-400); RBC 3.45 XMIL (4.2-5.4)
[2016-08-30 07:42] LABS: AGAP 16; ALBUMIN 2.9 g/dL (3.5-5.0); ALKALINE PHOSPHATASE 88 U/L (32-104); BUN 12 mg/dL (8-22); CALCIUM 9.1 mg/dL (8.8-10.2); CHLORIDE 118 mmol/L (98-107); COSMO 303; GOT 35 U/L (10-30); GPT 34 U/L (10-36); POTASSIUM 3.5 mmol/L (3.5-5.1); SODIUM 153 mmol/L (136-145); TCO2 19 mmol/L (25-35); TOTAL BILIRUBIN 0.22 mg/dL (0.20-1.00); TOTAL PROTEIN 7.1 g/dL (6.3-8.3)
[2016-08-30 07:56] LABS: EOS 2 % (1-10); LYMPHS 13 % (21-51)
[2016-08-30] MEDS: PROTONIX IV SCH ×2 (10:56→21:03)
[2016-08-30] MEDS: SODIUM CHLORIDE 0.9% INJ SCH ×2 (10:56→21:03)
--- NOTE | 2016-08-30 14:06 | PROGRESS NOTE ---
DATE: 08/30/2016 SUBJECTIVE: Ms. Bernard is still sleeping and hard to arouse, difficult to get up. Apparently, he had a little communication last night but this is the 3rd day in a row where she is just sleeping pretty deeply. She had a high residual with her tube feeding. We need to try and get her out of bed and try and get her awake. I am going to discontinue the tube feeding. She is off of all sedation. I am going to see if we can start working with her with physical therapy and trying to get her up out of bed. We are looking at maybe LTAC for a long time care if cannot see improvement with her mental status and get her to wake up. Temp afebrile. Temp 99.8 degrees, pulse 94, respirations 20. Lungs are clear in all lung lee. Cardiovascular: Regular rhythm and rate without murmur or S3. Abdomen is soft. Skin is warm and dry. White count elevated yesterday 17,580. Hematocrit was 30, platelet count 729,000. Her labs today: White count 17,580, hematocrit 30. Platelet count 729,000. Chemistries: Sodium elevated at 153. Potassium 3.4 or 5, bicarb 19. BUN 12, creatinine 0.8. Looking at the orders, we are going to discontinue the tube feeding. I am going to go up on her fluids. Her sodium has gone up. I will use 1/2 normal saline. We will run it 125 mL an hour. She is still on meropenem and vancomycin. She is on folic acid 2 mg daily as well. We will stop the tube feeding. She is off of any sedating medications that I can determine, and I am going to give her a little more fluid to see if we can get her sodium back down. Her last chest x-ray today fairly stable. No change in position of right-sided PICC line. NG tube overlies the esophagus and stomach. Lungs are well expanded. I believe we did an echocardiogram on her while she was here; if not, I think we need to get an echocardiogram and look and see what her left ventricular function looks like. I will see if I can order that bedside.
[2016-08-30] MEDS: NS 1,000 ML IV SCH (14:48)
[2016-08-30] MEDS ORDERED: AYR NASAL SPRAY NAS ONE (16:30)
[2016-08-30] MEDS: NS IV SCH (17:16)
[2016-08-30] MEDS: FOLIC ACID IV SCH (17:16)
[2016-08-30] MEDS: VANCOMYCIN 1,500 MG in NS 250 ML IV SCH (17:35)
[2016-08-31] MEDS: DUONEB (A & A) INH SCH ×6 (03:14→23:30)
[2016-08-31] MEDS: MERREM 500 MG in NS 50 ML IV SCH ×2 (04:04→12:27)
[2016-08-31] MEDS: NS 1,000 ML IV SCH ×2 (04:09→16:15)
[2016-08-31 05:27] LABS: ALLEN TEST YES; BLOOD TYPE ARTERIAL; DRAW SITE R RADIAL; METHB 1.1 % (0.0-1.5); O2(CT) 11.3 mL/dL (15.0-23.0); PCO2(98.6) 29 mmHg (35-45); PO2(98.6) 94 mmHg (60-100); SAMPLE BLOOD; SAO2 97.4 % (95.0-100.0); THB 8.3 g/dL (11.5-17.4)
[2016-08-31 05:28] LABS: MODALITY CANNULA
[2016-08-31 06:48] LABS: BASO% 0.9 % (0.0-0.8); EOS# 0.62 X1000 (0.0-0.7); HEMATOCRIT 28.8 % (37.0-47.0); HEMOGLOBIN 8.2 g/dL (12.0-16.0); IMM GRAN# 0.17 X1000 (0.0-0.04); IMM GRAN% 1.4 % (0.0-0.5); LYMPH# 2.44 X1000 (1.2-3.4); LYMPH% 19.5 % (20.5-51.1); MANUAL DIFF NEEDED? NO; MCH 25.5 PG (27-31); MCHC 28.5 g/dL (33-37); MCV 89.7 FL (81-99); MPV 10.4 FL (7.4-10.4); NEUT% 65.2 % (42.2-75.2); PLT 628 X1000 (130-400); RBC 3.21 XMIL (4.2-5.4)
[2016-08-31 07:14] LABS: AGAP 14; BUN 11 mg/dL (8-22); CALCIUM 8.6 mg/dL (8.8-10.2); CHLORIDE 127 mmol/L (98-107); COSMO 311; MAGNESIUM 2.2 mg/dL (1.5-2.7); POTASSIUM 3.7 mmol/L (3.5-5.1); SODIUM 158 mmol/L (136-145); TCO2 17 mmol/L (25-35)
--- NOTE | 2016-08-31 08:02 | ECHO REPORT ---
ORDER DATE: 08/30/2016 INTERPRETING PHYSICIAN: Dr. Santillan CLINICAL INDICATIONS: A 51-year-old female with COPD, cocaine abuse, shortness of breath, hypertension. M-MODE MEASUREMENTS: Right ventricle: 2.5 cm. Left ventricle end diastole: 4.3 cm. Left ventricle end systole: 2.6 cm. Posterior wall: 0.9 cm. Interventricular septum: 0.8 cm. Left atrium: 3.3 cm. Aortic root: 3.7 cm. SUMMARY OF 2-DIMENSIONAL IMAGIN. The left ventricular function is normal. Ejection fraction is estimated at 62%. No wall motion abnormality noted. The chamber is not dilated. 2. The right ventricle is normal. 3. The aortic valve is morphologically normal, color flow mapping unremarkable. 4. The pulmonic valve is also morphologically normal. Color flow mapping indicates a mild degree of regurgitation. 5. The tricuspid valve looks normal. Color flow mapping indicates a very mild degree of regurgitation. The inferior vena cava is not dilated. Pulmonary systolic pressure is estimated at 33 mmHg. 6. The mitral valve is normal. Color flow mapping unremarkable. Pulsed wave Doppler of mitral inflow shows relatively normal E/A ratio. The tissue Doppler of septal and lateral mitral annulus averages 9 cm. Pulsed wave Doppler of pulmonary venous flow is normal. There is no diastolic dysfunction. 7. There is no pericardial effusion, masses, nor thrombus. 8. The patient was tachycardic during this study. CONCLUSIONS: In summary, aside from the fact that the patient was tachycardic during the performance of this echocardiographic study, this test is essentially unremarkable.
[2016-08-31] MEDS: PROTONIX IV SCH (09:08)
[2016-08-31] MEDS: SODIUM CHLORIDE 0.9% INJ SCH (09:08)
--- NOTE | 2016-08-31 12:58 | Extremity Venous Study ---
PROCEDURE NAME: Venous U/S Bilateral Legs - 08/26/2016 REFERRING PHYSICIAN: Gurdeep Chou MD. READING PHYSICIAN: Leon Banks MD CIRCULATION MAN: Lauryn. INDICATION: Shortness of breath. The patient the patient has elevated D-dimer and is on BiPAP with respiratory failure. FINDINGS: The deep and superficial veins of both lower extremities were imaged throughout their course. All are compressible with forward flow. No thrombus is appreciated. INTERPRETATION: No evidence of deep or superficial venous thrombosis in either lower extremity.
--- NOTE | 2016-08-31 15:19 | PROGRESS NOTE ---
DATE: 08/31/2016 SUBJECTIVE: Ms. Bernard was awake and she was able to answer questions. She said she would like to try some food. Breathing comfortably. She is off the BiPAP. We had stopped her NG feeding yesterday. PHYSICAL EXAMINATION: Vital Signs: Temperature 97.3 degrees, pulse 80, respirations 14, blood pressure 143/89, pupils are equal round. CVP less than 6 cm. Lungs: Clear in all lung lee. Cardiovascular: Regular rhythm and rate without murmur or S3. Abdomen: Soft. Skin: Warm and dry. Urine output 1350 mL. LAB: White count 48945, hematocrit was 28, platelet count 628,000. Sodium 158, potassium 3.7, chloride 127, bicarb 17, BUN 11. Creatinine 0.8. ASSESSMENT AND PLAN: Metabolic encephalopathy and respiratory failure. Still has the right-sided PICC line. She is off the BiPAP breathing better, treating her for pneumonia, suspect aspiration pneumonia. Clinically improving. She has remained lethargic really for the most of this week and I had pulled her NG tube to see if we can advance her diet, get her to eat and work on her strength. Echocardiogram was done yesterday; left ventricular function is normal. Ejection fraction 60%. No wall motion abnormality noted. Tricuspid valve looks normal. Mitral valves normal. No pericardial effusion. Right ventricle is normal too. Reviewed orders. Continue the normal saline at 100 mL an hour for her mild hyponatremia. I am going to cut the Protonix down to 40 mg p.o. daily. We are going to stop the meropenem and the vancomycin and follow up with chest x-ray .
--- NOTE | 2016-08-31 16:02 | Extremity Venous Study ---
PROCEDURE NAME: Venous U/S Bilateral Legs - 08/29/2016 REQUESTING PHYSICIAN: Dr. Álvarez. MOWER MECHANIC: Lauryn. TEST: Bilateral lower extremity venous study. INDICATIONS: 1. Shortness of breath. 2. Patient is on BiPAP. 3. Increased elevated D-dimer. Previous comparison on 08/27/2016. PROCEDURE: Bilateral lower extremity venous duplex and color flow imaging. EQUIPMENT: Adomosid E9 Ultrasound System with a 9 LD transducer. FINDINGS: Images of the bilateral lower extremity venous systems were obtained in both sagittal and transverse planes. Doppler was used to evaluate veins for spontaneity, phasicity, respiratory excursion, and digital augmentation. RESULTS: Normal venous compression, normal venous flow. No obvious superficial or deep venous thrombosis noted. INTERPRETATION: No hemodynamically significant flow-limiting stenosis. No obvious superficial or deep venous thrombosis noted to bilateral lower extremity venous systems.
[2016-08-31] MEDS: FOLIC ACID IV SCH (16:15)
[2016-08-31] MEDS: NS IV SCH (16:15)
[2016-08-31] MEDS: ZOFRAN IV PRN (16:17)
[2016-09-01] MEDS: DUONEB (A & A) INH SCH ×5 (03:23→19:41)
[2016-09-01] MEDS: NS 1,000 ML IV SCH ×4 (03:48→17:13)
[2016-09-01 06:54] LABS: BASO% 0.6 % (0.0-0.8); EOS# 0.83 X1000 (0.0-0.7); EOS% 5.9 % (0.0-10.0); HEMATOCRIT 26.6 % (37.0-47.0); IMM GRAN# 0.09 X1000 (0.0-0.04); IMM GRAN% 0.6 % (0.0-0.5); LYMPH% 17.8 % (20.5-51.1); MANUAL DIFF NEEDED? YES; MCH 26.1 PG (27-31); MCHC 30.1 g/dL (33-37); MCV 86.9 FL (81-99); MONO# 0.94 X1000 (0.11-0.59); MONO% 6.7 % (1.7-9.3); MPV 10.5 FL (7.4-10.4); NEUT% 68.4 % (42.2-75.2); PLT 536 X1000 (130-400); RBC 3.06 XMIL (4.2-5.4)
--- NOTE | 2016-09-01 08:46 | Diag Imaging Result Document ---
PROCEDURE NAME: CHEST-PORTABLE - 09/01/2016 PORTABLE CHEST: COMPARISON: 08/30/2016. FINDINGS: The nasogastric tube has been removed. PICC line remains in place. There has been apparent mild increase in infiltrate on the right. There is mild infiltrate at the left upper lung which appears to have increased. There is no substantial pleural effusion or pneumothorax identified. Heart size appears within normal limits. IMPRESSION: Mild increase in infiltrates, primarily on the right.
[2016-09-01 08:53] LABS: BANDS 2 % (0-1); EOS 2 % (1-10); HYPOCHROM 1+; LYMPHS 22 % (21-51); MONO 6 % (1-9)
[2016-09-01] MEDS: ZOFRAN IV PRN ×2 (13:46→19:57)
--- NOTE | 2016-09-01 14:21 | PROGRESS NOTE ---
DATE: 09/01/2016 She is awake. She is not eating much. She complains of some nausea so we will give her a little Zofran but she is awake and moving all extremities. She is extremely weak and still looks pretty lethargic.Vital Signs: Temp 97.5 degrees, pulse 88, respirations 18, blood pressure 141/100. HEENT: The pupils were equal. CVP less than 6 cm. Lungs: Clear in all lung lee. Cardiovascular: Regular rhythm and rate without murmur or S3. Abdomen: Soft. Skin: Is warm and dry. Urine output 800 mL. LAB: This morning, white count 69661. Hematocrit was 26. Platelet count 536,000. Sodium still rising 158. Potassium 3.7, chloride 127, bicarb 17. BUN 11, creatinine 0.8. Folate was 5.2 back in August 27. We did a chest x-ray, again this morning, mild increased infiltrates primary on the right. ASSESSMENT AND PLAN: 1. Metabolic encephalopathy, respiratory failure. Still having right-sided PICC line still in place. Not having to use the BiPAP and breathing much better. Clinically getting better. Suspect she had aspiration pneumonia. 2. Global encephalopathy. This seems to be improving. She is a little more alert and awake. Continue physical therapy. 3. Echocardiogram was done. She has normal left ventricular function. Good ejection fraction. 4. Profound weakness and deconditioning, has been in the bed for a long time. Continue physical therapy orders and we will continue fluids at normal saline at 100 mL an hour. She is getting folic acid. I will continue to do that 1 mg daily. Continue to look for what her placement potential is, discharge planning. Note that magnesium looks okay, potassium 3.7, white count still elevated.
[2016-09-01] MEDS: NS IV SCH (17:08)
[2016-09-01] MEDS: FOLIC ACID IV SCH (17:08)
[2016-09-01] MEDS: TYLENOL LIQUID PO PRN (17:10)
[2016-09-02] MEDS: NS 1,000 ML IV SCH ×2 (02:38→16:08)
[2016-09-02] MEDS: ZOFRAN IV PRN (02:38)
[2016-09-02] MEDS: DUONEB (A & A) INH SCH ×7 (02:52→23:45)
--- NOTE | 2016-09-02 07:16 | Diag Imaging Result Document ---
PROCEDURE NAME: CHEST-1 VIEW - 09/02/2016 PORTABLE CHEST: COMPARISON: Compared to 09/01/3016. FINDINGS: The lungs are well expanded. No change in the right-sided PICC line. The heart is not enlarged. The vessels are less distended than on the prior study. No pleural effusions identified. IMPRESSION: Mild interval improvement.
[2016-09-02 07:24] LABS: AGAP 13; BUN 3 mg/dL (8-22); CALCIUM 8.1 mg/dL (8.8-10.2); CHLORIDE 110 mmol/L (98-107); COSMO 274; POTASSIUM 3.2 mmol/L (3.5-5.1); SODIUM 139 mmol/L (136-145); TCO2 16 mmol/L (25-35)
[2016-09-02 07:37] LABS: BASO% 0.2 % (0.0-0.8); EOS# 0.47 X1000 (0.0-0.7); EOS% 2.8 % (0.0-10.0); HEMATOCRIT 28.2 % (37.0-47.0); HEMOGLOBIN 8.6 g/dL (12.0-16.0); IMM GRAN# 0.04 X1000 (0.0-0.04); IMM GRAN% 0.2 % (0.0-0.5); LYMPH# 1.23 X1000 (1.2-3.4); LYMPH% 7.4 % (20.5-51.1); MANUAL DIFF NEEDED? NO; MCH 26.2 PG (27-31); MCHC 30.5 g/dL (33-37); MONO# 0.97 X1000 (0.11-0.59); MONO% 5.9 % (1.7-9.3); MPV 11.1 FL (7.4-10.4); NEUT% 83.5 % (42.2-75.2); PLT 476 X1000 (130-400); RBC 3.28 XMIL (4.2-5.4)
[2016-09-02] MEDS: NS IV SCH (16:08)
[2016-09-02] MEDS: FOLIC ACID IV SCH (16:08)
--- NOTE | 2016-09-02 17:15 | PROGRESS NOTE ---
DATE: 09/02/2016 SUBJECTIVE: Ms. Bernard is awake, she says she does not feel any better. She is trying to eat a little bit, but not eating much. She is breathing comfortably. She is off BiPAP. OBJECTIVE: Vital signs: Temperature 99 degrees, remains afebrile, pulse of 97, respirations 16. Lungs: Clear in all lung lee, anterolateral. Cardiovascular: Regular rhythm and rate without murmur or S3. Abdomen: Soft. Skin: Warm and dry. LABORATORY: From this morning, white count elevated at 16,570, hematocrit 28, platelet count 476,000. Sodium 139, potassium 3.2, chloride 110, bicarb 16, BUN 3, creatinine 0.6, calcium 8.1, albumin is 2.9. IMAGING: Chest x-ray: Mild interval improvement in the chest x-ray. Lungs are expanded. No change in the right-sided PICC line. Heart is not enlarged. Vessels are less distended than prior study. ASSESSMENT AND PLAN: 1. Metabolic encephalopathy. Respiratory failure. There is a right-sided PICC line. Not having to use BiPAP and the air exchange is better. Suspect aspiration pneumonia which has been treated. 2. Global encephalopathy. Slow improvement. Still very lethargic and slow to respond. We need to continue physical therapy and probably occupational therapy. 3. Echocardiogram was done, normal left ventricular function. Good ejection fraction. 4. Profound weakness, deconditioning. Continue her physical therapy. PLAN: Review of orders: I do not see anything to change. Normal saline is going at 100 mL an hour. She has normal left ventricular function. Supplementing folic acid. We will get Social Service to start to look for discharge planning.
[2016-09-03] MEDS: NS 1,000 ML IV SCH ×3 (02:04→17:41)
[2016-09-03] MEDS: DUONEB (A & A) INH SCH ×6 (03:24→23:50)
[2016-09-03 07:37] LABS: BASO% 0.3 % (0.0-0.8); EOS# 0.46 X1000 (0.0-0.7); EOS% 3.9 % (0.0-10.0); HEMATOCRIT 25.5 % (37.0-47.0); HEMOGLOBIN 7.7 g/dL (12.0-16.0); IMM GRAN# 0.04 X1000 (0.0-0.04); IMM GRAN% 0.3 % (0.0-0.5); LYMPH# 1.55 X1000 (1.2-3.4); LYMPH% 13.2 % (20.5-51.1); MANUAL DIFF NEEDED? NO; MCH 25.8 PG (27-31); MCHC 30.2 g/dL (33-37); MCV 85.3 FL (81-99); MONO# 0.87 X1000 (0.11-0.59); MONO% 7.4 % (1.7-9.3); NEUT% 74.9 % (42.2-75.2); PLT 392 X1000 (130-400); RBC 2.99 XMIL (4.2-5.4)
[2016-09-03] MEDS: ZOFRAN IV PRN ×2 (08:46→17:37)
[2016-09-03 12:33] LABS: IRON SATURATION 25 %; TIBC 187 ug/dL; TOTAL IRON 46 ug/dL (49-151); UNBOUND IRON 141 ug/dL (112-346)
[2016-09-03] MEDS: TYLENOL LIQUID PO PRN ×2 (12:51→17:37)
--- NOTE | 2016-09-03 17:26 | PROGRESS NOTE ---
DATE: 09/03/2016 SUBJECTIVE: She is awake. She has been eating some. She says she is sleepy. Her breathing appears comfortable but still lethargic. Poor energy. Poor strength. Very weak. Prolonged hospital stay. PHYSICAL EXAMINATION: Vital Signs: Temperature 98.3 degrees, pulse 98, respirations 24, blood pressure 147/92. CVP: Less than 6 cm. HEENT: Pupils were equal, round. Lungs: Clear in all lung lee. Cardiovascular: Regular rate and rhythm without murmur or S3. URINE OUTPUT: About 1600 mL. LABS FROM YESTERDAY: Reviewed. Hematocrit 25, hemoglobin 7.7, with an MCV of 85. Iron is low at 46, total iron-binding capacity 187%, percent saturation 25%. MEDICATIONS: Reviewed. PLAN: 1. Orders reviewed. We have stopped her NG feeding. She seems to be improving in her p.o. intake. Still very lethargic, very weak. Metabolic encephalopathy which I see slow improvement. 2. Treated for respiratory failure. Suspect aspiration pneumonia. Better. 3. Echocardiogram showed normal left ventricular function. 4. General weakness and deconditioning. Continue physical therapy. We need to look at what our placement options. Social Service to kind of help.
[2016-09-03] MEDS: FOLIC ACID IV SCH (17:34)
[2016-09-03] MEDS: NS IV SCH (17:34)
[2016-09-03] MEDS: BLISTEX MEDICATED BERRY LIP BALM TOP PRN (17:41)
[2016-09-04] MEDS: ZOFRAN IV PRN (00:52)
[2016-09-04] MEDS: HALDOL IV PRN ×2 (00:52→18:16)
[2016-09-04] MEDS: DUONEB (A & A) INH SCH ×6 (03:16→22:47)
[2016-09-04] MEDS: NS 1,000 ML IV SCH ×2 (05:34→18:00)
[2016-09-04 06:38] LABS: BASO% 0.3 % (0.0-0.8); EOS# 0.34 X1000 (0.0-0.7); EOS% 3.5 % (0.0-10.0); HEMATOCRIT 30.2 % (37.0-47.0); HEMOGLOBIN 9.4 g/dL (12.0-16.0); IMM GRAN# 0.02 X1000 (0.0-0.04); IMM GRAN% 0.2 % (0.0-0.5); LYMPH# 1.39 X1000 (1.2-3.4); LYMPH% 14.2 % (20.5-51.1); MANUAL DIFF NEEDED? NO; MCH 26.2 PG (27-31); MCHC 31.1 g/dL (33-37); MCV 84.1 FL (81-99); MONO# 0.64 X1000 (0.11-0.59); MONO% 6.5 % (1.7-9.3); MPV 11.3 FL (7.4-10.4); NEUT% 75.3 % (42.2-75.2); PLT 344 X1000 (130-400); RBC 3.59 XMIL (4.2-5.4)
--- NOTE | 2016-09-04 14:53 | PROGRESS NOTE ---
DATE: 09/04/2016 SUBJECTIVE: Today Ms. Bernard referred to be doing okay. She is more lucid. OBJECTIVE: Vital signs: Blood pressure is 135/89, pulse of 83, respirations 18, temperature 98.3 degrees. General: Ms. Bernard, 51-year-old female. She is in bed. Not seemingly distressed. HEENT: Mucosa is pink and moist. Anicteric. Acyanotic. Neck: Supple. Chest: Good air entry bilateral. There is a few expiratory rhonchi. Cardiovascular: Regular rate and rhythm. Abdomen: Soft, nontender. Extremities: No pedal edema. BOILER CLEANER: Patient is alert, is oriented. Able to move extremities bilaterally but does have some muscle weakness. LABORATORY DATA: WBC is 9.81, hemoglobin is 9.4, platelet count is 344,000. No chemistry for today. ASSESSMENT: 1. Altered mental status due to global encephalopathy. The patient is improving. 2. History of cocaine abuse and other recreational drug abuse. 3. Acute hypoxemic respiratory failure on presentation, improved. 4. Multifocal pneumonia. Questionable for aspiration. 5. Critical illness polyneuropathy. 6. Thrombocytosis resolved. Generally patient seems to be doing progressively better. We are going to continue with the current care plan. We are going to discontinue the Sesay catheter. Encourage the patient to sit up in bed and reconsult PT to work with the patient.
[2016-09-04] MEDS: FOLIC ACID IV SCH (17:57)
[2016-09-04] MEDS: NS IV SCH (17:57)
[2016-09-04] MEDS: TYLENOL LIQUID PO PRN (18:16)
[2016-09-05] MEDS: DUONEB (A & A) INH SCH ×6 (02:48→23:16)
[2016-09-05] MEDS: NS 1,000 ML IV SCH (03:40)
[2016-09-05] MEDS: HALDOL IV PRN (03:42)
[2016-09-05 08:18] LABS: AGAP 15; ALBUMIN 2.5 g/dL (3.5-5.0); ALKALINE PHOSPHATASE 74 U/L (32-104); BUN 2 mg/dL (8-22); CHLORIDE 107 mmol/L (98-107); COSMO 266; GOT 29 U/L (10-30); GPT 36 U/L (10-36); MAGNESIUM 1.7 mg/dL (1.5-2.7); POTASSIUM 3.1 mmol/L (3.5-5.1); SODIUM 135 mmol/L (136-145); TCO2 13 mmol/L (25-35); TOTAL PROTEIN 5.9 g/dL (6.3-8.3)
[2016-09-05 08:22] LABS: BASO% 0.2 % (0.0-0.8); EOS# 0.33 X1000 (0.0-0.7); EOS% 3.2 % (0.0-10.0); HEMATOCRIT 25.9 % (37.0-47.0); HEMOGLOBIN 8.1 g/dL (12.0-16.0); IMM GRAN# 0.02 X1000 (0.0-0.04); IMM GRAN% 0.2 % (0.0-0.5); LYMPH# 1.26 X1000 (1.2-3.4); LYMPH% 12.3 % (20.5-51.1); MANUAL DIFF NEEDED? NO; MCH 26.6 PG (27-31); MCHC 31.3 g/dL (33-37); MCV 85.2 FL (81-99); MONO# 0.69 X1000 (0.11-0.59); MONO% 6.7 % (1.7-9.3); MPV 11.5 FL (7.4-10.4); NEUT% 77.4 % (42.2-75.2); PLT 322 X1000 (130-400); RBC 3.04 XMIL (4.2-5.4)
[2016-09-05] MEDS ORDERED: KLOR-CON PO ONE (08:24)
--- NOTE | 2016-09-05 14:58 | PROGRESS NOTE ---
DATE: 09/05/2016 Today Ms. Bernard was in the bed. Did not have any complaints. Per the nursing staff, she was not able to participate very actively with physical therapy. OBJECTIVE: Vital signs: Blood pressure is 133/96, pulse of 109, respirations 23, temperature is 98.6 degrees. General Exam: Ms. Bernard is a 48-year-old female. She was in bed. She did not seem to be in any distress. HEENT: Mucosa is pink and moist. She has a very poor dentition. Chest: Clear. A few expiratory rhonchi. Cardiovascular: Regular rate and rhythm. No murmurs, no rubs. No gallops. Abdomen: Soft, distended, but nontender. Extremities: No pedal edema. OUTPATIENT CODER: Patient is alert, oriented to person, disoriented to place. Patient is able to follow some basic commands. Has a left side hemiparesis. LABORATORY DATA: WBC is 10.25, hemoglobin is 8.1, platelet count of 322,000. Chemistry reviewed. Potassium is 3.1, which is replaced. ASSESSMENT: 1. Altered mental status due to global encephalopathy. 2. History of cocaine and other recreational drug abuse. 3. Acute hypoxemic respiratory failure on presentation, improved. 4. Multifocal pneumonia. Questionable for aspiration. 5. Critical illness polyneuropathy. 6. Thrombocytosis resolved. 7. Hypokalemia. We will replace that. Patient current medications have been reviewed. At this point, I think the main issue is with Ms. Bernard is just active physical rehabilitation. The patient does not have any insurance to help her go to rehab so will continue doing what we are doing in the hospital. Her hemoglobin and hematocrit dropped slightly but the patient does not show any overt sign of bleeding so will keep an eye on that.
[2016-09-05] MEDS: FOLIC ACID IV SCH (17:30)
[2016-09-05] MEDS: NS IV SCH (17:30)
[2016-09-06] MEDS: DUONEB (A & A) INH SCH ×6 (03:12→23:11)
[2016-09-06 07:21] LABS: BASO% 0.4 % (0.0-0.8); EOS# 0.45 X1000 (0.0-0.7); EOS% 4.2 % (0.0-10.0); HEMATOCRIT 25.3 % (37.0-47.0); HEMOGLOBIN 7.7 g/dL (12.0-16.0); IMM GRAN# 0.03 X1000 (0.0-0.04); IMM GRAN% 0.3 % (0.0-0.5); LYMPH# 1.28 X1000 (1.2-3.4); LYMPH% 11.9 % (20.5-51.1); MANUAL DIFF NEEDED? YES; MCH 26.2 PG (27-31); MCHC 30.4 g/dL (33-37); MCV 86.1 FL (81-99); MONO# 0.67 X1000 (0.11-0.59); MONO% 6.2 % (1.7-9.3); PLT 368 X1000 (130-400); RBC 2.94 XMIL (4.2-5.4)
[2016-09-06 07:46] LABS: AGAP 14; BUN 2 mg/dL (8-22); CHLORIDE 110 mmol/L (98-107); COSMO 274; POTASSIUM 3.1 mmol/L (3.5-5.1); SODIUM 139 mmol/L (136-145); TCO2 15 mmol/L (25-35)
[2016-09-06 07:53] LABS: LYMPHS 4 % (21-51); MONO 2 % (1-9)
[2016-09-06] MEDS ORDERED: KLOR-CON PO ONE (08:25)
[2016-09-06] MEDS ORDERED: MAGNESIUM SULFATE 2 GM/S.W.I. 50 ML IV ONE (08:25)
[2016-09-06 08:43] LABS: ALLEN TEST YES; BE -9.5 mmoll (-3.0-3.0); BLOOD TYPE ARTERIAL; DRAW SITE R RADIAL; O2(CT) 12.6 mL/dL (15.0-23.0); PCO2(98.6) 26 mmHg (35-45); PO2(98.6) 103 mmHg (60-100); SAMPLE BLOOD; SAO2 97.8 % (95.0-100.0); THB 9.2 g/dL (11.5-17.4); pH(98.6) 7.36 (7.35-7.45)
[2016-09-06 08:44] LABS: MODALITY CANNULA
[2016-09-06] MEDS: SODIUM BICARBONATE 8.4% 100 MEQ in D5W 1,000 ML IV SCH (09:37)
--- NOTE | 2016-09-06 13:18 | PROGRESS NOTE ---
DATE: 09/06/2016 Today Ms. Bernard continues to be stable. Has no any acute complaints. OBJECTIVE: Vital signs: Blood pressure is 138/92, pulse of 107, respirations 24, temperature is 98.9 degrees. General: Ms. Bernard is a 51-year-old, female. She is in bed and did not seem to be in any distress. HEENT: Mucosa is pink and moist. Anicteric. Acyanotic. Neck: Supple. Chest: Air entry is bilaterally reduced. A few bibasilar crepitations. Cardiovascular: Regular rate and rhythm. Abdomen: Soft and tender. Extremities: No pedal edema. WATCH ASSEMBLER: Patient is alert, oriented to person but is not very conversational. She will obey some basic commands though and say yes and no. She does have a left-sided hemiparesis. LABORATORY DATA: WBC is 10.80, hemoglobin is 7.7, platelet count of 368,000. Sodium is 139, potassium is 3.1, chloride is 110, bicarb is 15. ASSESSMENT: 1. Altered mental status due to global encephalopathy. 2. History of cocaine and other recreational drug use. 3. Non gap metabolic acidosis. 4. Multifocal pneumonia. Questionable for aspiration. 5. Critical illness, polyneuropathy. 6. Thrombocytosis improved. 7. Thrombocytosis improved. 8. Hypokalemia, we will continue to replace this. So our general plan, patient continued to have non gap metabolic acidosis which I think is from GI losses. We will however do urine studies, urine anion gap to see if it is renal versus GI. We are going to switch the patient to D5 with bicarb hydration. We will continue encouraging physical therapy to work with the patient. Main problem now is just about the patient disposition. My understanding is because she has a history of drug abuse she will not be able to go anywhere. We would therefore have to wait until she is able to be mobile before we will send her home.
[2016-09-06] MEDS: TYLENOL LIQUID PO PRN (16:25)
[2016-09-07] MEDS ORDERED: NS 500 ML IV ONE (00:51)
[2016-09-07] MEDS: DUONEB (A & A) INH SCH ×6 (03:00→23:58)
[2016-09-07] MEDS: SODIUM BICARBONATE 8.4% 100 MEQ in D5W 1,000 ML IV SCH (03:43)
--- NOTE | 2016-09-07 06:00 | EKG Report ---
Test Performed on : 09/07/2016 00:13:21 AM Test Reason : Tachycardia Blood Pressure : / mmHG Vent. Rate : 135 BPM Atrial Rate : 135 BPM P-R Int : 144 ms QRS Dur : 084 ms QT Int : 290 ms P-R-T Axes : 046 -03 052 degrees QTc Int : 435 ms Sinus tachycardia. Possible Left atrial enlargement Borderline ECG When compared with ECG of 10-AUG-2016 19:04, No significant change was found Confirmed by Carlos DAVID, Jordy Winchester ([id number]) on 09/07/2016 9:16:15 AM
[2016-09-07 08:45] LABS: BASO% 0.2 % (0.0-0.8); EOS% 0.5 % (0.0-10.0); HEMATOCRIT 24.3 % (37.0-47.0); HEMOGLOBIN 7.6 g/dL (12.0-16.0); IMM GRAN# 0.06 X1000 (0.0-0.04); IMM GRAN% 0.3 % (0.0-0.5); LYMPH# 1.16 X1000 (1.2-3.4); LYMPH% 5.7 % (20.5-51.1); MANUAL DIFF NEEDED? YES; MCHC 31.3 g/dL (33-37); MCV 86.2 FL (81-99); MONO# 1.09 X1000 (0.11-0.59); MONO% 5.4 % (1.7-9.3); MPV 11.1 FL (7.4-10.4); NEUT% 87.9 % (42.2-75.2); PLT 355 X1000 (130-400); RBC 2.82 XMIL (4.2-5.4)
[2016-09-07 09:07] LABS: AGAP 9; BANDS 2 % (0-1); BUN 4 mg/dL (8-22); CALCIUM 7.8 mg/dL (8.8-10.2); CHLORIDE 102 mmol/L (98-107); COSMO 266; LYMPHS 4 % (21-51); MAGNESIUM 1.9 mg/dL (1.5-2.7); MONO 4 % (1-9); POTASSIUM 3.3 mmol/L (3.5-5.1); SODIUM 134 mmol/L (136-145); TCO2 23 mmol/L (25-35)
[2016-09-07] MEDS ORDERED: NS 500 ML ONE (14:15)
--- NOTE | 2016-09-07 14:53 | Diag Imaging Result Document ---
PROCEDURE NAME: CHEST-PORTABLE - 09/07/2016 PORTABLE CHEST: COMPARISON: 09/02/2016. FINDINGS: There is a right-sided PICC line with the tip near the right atrium. The lungs are well expanded. The heart is not enlarged. Decreased vascular distention with decreased infiltrates compared to the prior study. There may be a tiny right effusion. No other abnormality. IMPRESSION: Interval improvement with decreased pulmonary edema/infiltrates.
[2016-09-07] MEDS: ZYVOX PO SCH ×2 (15:03→23:02)
--- NOTE | 2016-09-07 17:09 | PROGRESS NOTE ---
DATE: 09/07/2016 Today Ms. Bernard did not have any complaints. She was actually taking her lunch when I saw her. She had some spill in her tray and she was requesting some help. OBJECTIVE: Vital Signs: Stable. Blood pressure is 136/80, pulse of 98, respirations 16, temperature is 97.9 degrees. General Exam: Ms. Bernard is a 51-year-old, female. She is in bed, does not seems to be in any distress. HEENT: Mucosa is pink and moist. Anicteric. Acyanotic. Neck: Supple. Chest: Clear. A few bibasilar crepitations. Cardiovascular: Regular rate and rhythm. Abdomen: Soft. MARBLE MASON: Patient is alert. She is oriented to person, disoriented to place and time but she is able to follow some basic commands. LABORATORY DATA: Hemoglobin is 7.6. Sodium is 134, potassium is 3.3, chloride is 102, bicarb is 23. CURRENT MEDICATIONS INCLUDE: Albuterol nebs. ASSESSMENT: 1. Altered mental status due to global encephalopathy. 2. Multifocal pneumonia. Questionable for aspiration. Patient had finished treatment with antibiotics but she started having some wheezing this morning and white count went up so I will restart her on linezolid. 3. Non gap metabolic acidosis. This is improved. 4. Critical illness polyneuropathy. 5. Thrombocytosis improved. 6. Hypokalemia is improving. We will continue to replace this. 7. Hypophosphatemia and hypomagnesemia. We will continue to replace. 8. History of cocaine and other recreational drug abuse with decayed teeth suggestive of "meth mouth." 9. Anemia multifactorial. H and H has dropped slightly but patient has no overt blleding and clinically stable. I would prefer to wait on transfusion for now. In general, patient seems to be stable. We will add linezolid for possible hospital associated pneumonia/aspiration. Would encourage the patient to participate in PT. I understand she does not have any benefits. [facility]
[2016-09-08] MEDS: DUONEB (A & A) INH SCH ×6 (03:53→23:45)
[2016-09-08 06:40] LABS: BASO% 0.4 % (0.0-0.8); EOS# 0.38 X1000 (0.0-0.7); EOS% 4.1 % (0.0-10.0); HEMATOCRIT 31.1 % (37.0-47.0); LYMPH# 1.13 X1000 (1.2-3.4); LYMPH% 12.2 % (20.5-51.1); MANUAL DIFF NEEDED? NO; MCHC 32.2 g/dL (33-37); MCV 83.8 FL (81-99); MONO# 0.79 X1000 (0.11-0.59); MONO% 8.6 % (1.7-9.3); MPV 11.7 FL (7.4-10.4); NEUT% 74.7 % (42.2-75.2); PLT 314 X1000 (130-400); RBC 3.71 XMIL (4.2-5.4)
[2016-09-08 07:05] LABS: AGAP 16; ALBUMIN 2.4 g/dL (3.5-5.0); ALKALINE PHOSPHATASE 74 U/L (32-104); BUN 3 mg/dL (8-22); CALCIUM 8.9 mg/dL (8.8-10.2); CHLORIDE 98 mmol/L (98-107); COSMO 261; GOT 18 U/L (10-30); GPT 24 U/L (10-36); MAGNESIUM 1.9 mg/dL (1.5-2.7); POTASSIUM 3.2 mmol/L (3.5-5.1); SODIUM 132 mmol/L (136-145); TCO2 18 mmol/L (25-35); TOTAL BILIRUBIN 0.56 mg/dL (0.20-1.00)
--- NOTE | 2016-09-08 08:20 | Diag Imaging Result Document ---
PROCEDURE NAME: CHEST-PORTABLE - 09/08/2016 PORTABLE CHEST: COMPARISON: 09/07/2016. FINDINGS: PICC line remains in place. Heart size appears upper normal. There are bilateral interstitial infiltrates or edema which appear increased in the upper lungs and decreased at the bases. There is no focal dense consolidation seen. There is questionable small right pleural effusion. There is no pneumothorax. IMPRESSION: Bilateral interstitial infiltrates or edema which appear decreased at the lung bases and increased at the upper lungs.
[2016-09-08] MEDS: ZYVOX PO SCH (10:31)
--- NOTE | 2016-09-08 11:45 | PROGRESS NOTE ---
DATE: 09/08/2016 SUBJECTIVE: Today, Ms. Bernard continues to be stable. Actually, she asked when she would be ready to go home. OBJECTIVE: Vital signs: Blood pressure 136/86, pulse of 95, respiration is 20, temperature is 97.9. General: Ms. Bernard is a 51-year-old female. She was in bed. Did not seem to be in any distress. HEENT: Mucosa is pink and moist. Anicteric and acyanotic. She just continues to have this throat clearing and repetitive noise all the time. Cardiovascular: Regular rate and rhythm. Chest: Good air entry bilaterally. There are a few bibasilar crepitations. Abdomen: Soft. TIRE STRIPPER: The patient is alert, oriented to person, has residual left- sided hemiparesis. LABORATORY DATA: WBC is down to 9.23, hemoglobin is 10.0, platelet count of 314. Sodium is 132, potassium is 3.2, chloride is 98, bicarb is 18. ASSESSMENT: 1. Altered mental status due to global encephalopathy. 2. Multifocal pneumonia, questionable for aspiration. The patient has been restarted on linezolid. Today is day one. WBC has remarkably reduced. I am not quite sure if it is because of the antibiotic or it was just a reactive reaction, but a lot better. 3. Non-gap acidosis. This improved, and this morning there is a mild high-gap acidosis. 4. Critical-illness polyneuropathy. 5. Thrombocytosis, improved. 6. Electrolyte imbalance including hypokalemia, hypophosphatemia, hypomagnesemia. This has been replaced. 7. History of cocaine and other recreational drug abuse with decayed teeth suggestive of meth mouth. 8. Anemia, multifactorial. Hemoglobin and hematocrit are now up. The patient had 2 units of PRBC transfused by our GI colleagues. 9. Hyponatremia. The patient is actually not on any fluids, and sodium is a little low. We will check the patient's TSH and cortisol level. The recent cortisol level that we have is relatively low, comparatively low. 10.Transient adrenal insufficiency. Cortisol level is 13.8, which I think is comparatively low for the stress that the patient is going through. We will therefore start her on hydrocortisone 50 IV b.i.d. and titrate it down.
[2016-09-08] MEDS: SOLU-CORTEF IV SCH (16:30)
[2016-09-09] MEDS: SOLU-CORTEF IV SCH ×3 (01:04→22:32)
[2016-09-09] MEDS: DUONEB (A & A) INH SCH ×6 (04:00→23:17)
[2016-09-09] MEDS: TYLENOL LIQUID PO PRN ×2 (04:16→22:32)
[2016-09-09] MEDS: ZYVOX PO SCH ×4 (05:39→22:32)
[2016-09-09 06:18] LABS: HEMATOCRIT 31.8 % (37.0-47.0); HEMOGLOBIN 10.6 g/dL (12.0-16.0); LYMPH# 0.28 X1000 (1.2-3.4); LYMPH% 3.8 % (20.5-51.1); MANUAL DIFF NEEDED? YES; MCHC 33.3 g/dL (33-37); MCV 84.1 FL (81-99); MONO# 0.15 X1000 (0.11-0.59); MPV 10.9 FL (7.4-10.4); NEUT% 94.2 % (42.2-75.2); PLT 340 X1000 (130-400); RBC 3.78 XMIL (4.2-5.4)
[2016-09-09 07:26] LABS: LYMPHS 2 % (21-51); MONO 2 % (1-9)
--- NOTE | 2016-09-09 17:08 | PROGRESS NOTE ---
DATE: 09/09/2016 SUBJECTIVE: Today, Ms. Bernard was more alert and more conversational. She was requesting to know when she could be discharged. OBJECTIVE: Vital signs: Blood pressure is 145/93, pulse of 94, respirations 21, temperature is 98.6 degrees. General: Ms. Bernard is a 48-year-old female, who looks older than her age. She was in bed. Not seemingly distressed. HEENT: Mucosa is pink and moist. Anicteric and acyanotic. Neck: Supple. Chest: Good air entry bilateral. A few bibasilar crepitations. Cardiovascular: Regular rate and rhythm. Abdomen: Soft, nontender. Bowel sounds are present. TRANSCRIBING MACHINE OPERATOR: Patient is alert, is oriented. She has a residual left-sided hemiparesis. LABORATORY DATA: WBC 7.42, hemoglobin is 10.6, platelet count of 340,000. Chemistry reviewed, none for today. ASSESSMENT: 1. Altered mental status due to global encephalopathy. This is improved. 2. Multifocal pneumonia. Questionable for aspiration. Patient is currently on linezolid, seems to be doing okay. We will continue observing aspiration precautions. 3. Critical illness polyneuropathy. 4. History of cerebrovascular accident with left side hemiparesis. 5. Electrolyte imbalance, including hypokalemia, hypophosphatemia, hypomagnesemia, likely due to long-standing malnutrition. 6. History of cocaine and other recreational drug abuse with decayed teeth suggestive of meth mouth. 7. Anemia due to multifactorial etiologies. The patient is status post 4 packed red blood cell transfusions. Hemoglobin and hematocrit remains relatively stable. 8. Transient adrenal insufficiency. Patient is currently on hydrocortisone and she looks like she is a lot more better since we started her on hydrocortisone. PLAN: Patient is improving. We will continue the current plan. Today is day 3 on linezolid. We will plan to treat this for 10 days. We will also continue with the current hydrocortisone. We will continue observing the aspiration precaution. I will order to sit up the patient in chair and hopefully will get Physical Therapy to work with her today.
[2016-09-09] MEDS: ZOFRAN IV PRN (22:32)
[2016-09-09] MEDS: SODIUM CHLORIDE 0.9% INJ SCH (22:41)
[2016-09-10] MEDS: DUONEB (A & A) INH SCH ×6 (04:01→23:20)
[2016-09-10 07:27] LABS: HEMOGLOBIN 10.3 g/dL (12.0-16.0); LYMPH# 0.51 X1000 (1.2-3.4); LYMPH% 6.7 % (20.5-51.1); MANUAL DIFF NEEDED? YES; MCH 27.1 PG (27-31); MCHC 32.2 g/dL (33-37); MCV 84.2 FL (81-99); MONO% 5.3 % (1.7-9.3); MPV 11.5 FL (7.4-10.4); PLT 340 X1000 (130-400)
[2016-09-10 07:58] LABS: AGAP 17; BUN 3 mg/dL (8-22); CALCIUM 9.2 mg/dL (8.8-10.2); CHLORIDE 99 mmol/L (98-107); COSMO 267; MAGNESIUM 1.9 mg/dL (1.5-2.7); POTASSIUM 2.8 mmol/L (3.5-5.1); SODIUM 135 mmol/L (136-145); TCO2 19 mmol/L (25-35)
[2016-09-10] MEDS: TYLENOL LIQUID PO PRN ×3 (07:59→23:17)
[2016-09-10] MEDS ORDERED: KLOR-CON PO ONE (08:43)
[2016-09-10] MEDS ORDERED: POTASSIUM CHLORIDE 40 MEQ/SWI 100 ML IV ONE (08:43)
--- NOTE | 2016-09-10 09:15 | Diag Imaging Result Document ---
PROCEDURE NAME: CHEST-PORTABLE - 09/10/2016 PORTABLE CHEST X-RAY, 09/10/2016: COMPARISON: 09/08/2016. FINDINGS: Stable right PICC line. Stable mild reticulonodular interstitial infiltrates bilaterally. Heart size remains top normal. Lung volumes are rather low. IMPRESSION: No change from prior.
[2016-09-10 09:24] LABS: LYMPHS 7 % (21-51); MONO 5 % (1-9)
[2016-09-10] MEDS: ZYVOX PO SCH ×2 (10:06→21:53)
[2016-09-10] MEDS: SOLU-CORTEF IV SCH ×3 (11:32→23:17)
[2016-09-10] MEDS: ZOFRAN IV PRN ×2 (16:11→21:53)
--- NOTE | 2016-09-10 19:16 | PROGRESS NOTE ---
DATE: 09/10/2016 SUBJECTIVE: Today Ms. Bernard is referred to be doing relatively fine. She said she was hurting a little bit in the abdomen and she really wants to go home because she has been in the hospital for long. OBJECTIVE: Vital signs: Blood pressure is 142/88, pulse of 70, respirations 16 , temperature 99.0 degrees. General Examination: Ms. Bernard is a 51-year-old female. She was in bed. Does not seem to be in any distress. Mucosa is pink and moist. Anicteric. Acyanotic. Neck: Supple. The patient has very decayed teeth. Chest: Good air entry bilateral. No crepitations. Cardiovascular: Regular rate and rhythm. Abdomen: Soft, nontender. Bowel sounds are present. LIFE CARE PLANNER: Patient is alert, oriented to person and to place. Disoriented to time. Left side residual hemiparesis. LABORATORY DATA: Hemoglobin and hematocrit is 10.3. WBC is normal. Platelet count of 340,000. Sodium is 135, potassium is 2.8, chloride is 99, bicarb is 19. CURRENT MEDICATIONS: 1. DuoNeb's. 2. Hydrocortisone. 3. Zyvox. ASSESSMENT: 1. Altered mental status due to global encephalopathy, likely related to recreational drug abuse. 2. Multifocal pneumonia. Questionable for aspirations. This is improving. Patient is currently on linezolid and we are observing aspiration precautions. 3. Critical illness polyneuropathy. The patient will continue having physical therapy. 4. History of cerebrovascular accident with left-sided hemiparesis. 5. Hypokalemia likely due to malnutrition. Will continue replacing. 6. History of cocaine and other recreational drug abuse. 7. Anemia due to multifactorial etiologies, including iron deficiency. The patient has had 4 packed red blood cell transfusions. Hemoglobin and hematocrit is stable. 8. Transient adrenal insufficiency. We will continue to give IV hydrocortisone until tomorrow and then we will transition it to p.o. GENERAL PLAN: We spoke extensively on Ms. Bernard today at the I-POC meeting. The plan is that Ms. Cee, who is the continuous pillowcase cutter, will get in touch with the family members for Ms. Bernard if she is able to get in touch with them and Ms. Bernard is able to participate with physical therapy then we will discharge her home with home health. [facility]
[2016-09-10] MEDS: CARAFATE PO SCH (21:53)
[2016-09-11 07:26] LABS: MANUAL DIFF NEEDED? NO
[2016-09-11 07:42] LABS: BASO% 0.1 % (0.0-0.8); EOS# 0.02 X1000 (0.0-0.7); EOS% 0.1 % (0.0-10.0); HEMATOCRIT 33.2 % (37.0-47.0); HEMOGLOBIN 10.8 g/dL (12.0-16.0); IMM GRAN# 0.02 X1000 (0.0-0.04); IMM GRAN% 0.1 % (0.0-0.5); LYMPH# 1.49 X1000 (1.2-3.4); LYMPH% 9.7 % (20.5-51.1); MCH 27.8 PG (27-31); MCHC 32.5 g/dL (33-37); MCV 85.3 FL (81-99); MONO# 1.59 X1000 (0.11-0.59); MONO% 10.4 % (1.7-9.3); MPV 10.4 FL (7.4-10.4); NEUT% 79.6 % (42.2-75.2); PLT 396 X1000 (130-400); RBC 3.89 XMIL (4.2-5.4)
[2016-09-11 07:46] LABS: AGAP 12; BUN 7 mg/dL (8-22); CALCIUM 8.8 mg/dL (8.8-10.2); CHLORIDE 101 mmol/L (98-107); COSMO 262; POTASSIUM 3.5 mmol/L (3.5-5.1); SODIUM 132 mmol/L (136-145); TCO2 19 mmol/L (25-35)
[2016-09-11] MEDS ORDERED: MINIPRESS PO ONE (08:30)
[2016-09-11] MEDS: CARAFATE PO SCH ×4 (11:14→22:53)
[2016-09-11] MEDS: ZYVOX PO SCH ×2 (11:14→22:53)
[2016-09-11] MEDS: PRINIVIL PO SCH (11:15)
[2016-09-11] MEDS: SOLU-CORTEF IV SCH ×2 (11:16→22:53)
[2016-09-11] MEDS: ZOFRAN IV PRN ×2 (12:00→23:37)
--- NOTE | 2016-09-11 16:37 | PROGRESS NOTE ---
DATE: 09/11/2016 SUBJECTIVE: Today Ms. Bernard referred to be doing okay. Requesting when she will be going home. OBJECTIVE: Vital Signs: Stable. Blood pressure is 161/103, pulse of 91, respiration is 18, temperature 98.9 degrees. Patient did have a temp of 100.1 degrees today. General: Ms. Bernard is a 51-year-old female who looks older than her age. HEENT: Mucosa is pink and moist. Anicteric. Acyanotic. The patient does have some decayed teeth. Neck: Supple. The rest of physical exam is unremarkable. FLOOR LAYER TILE: Patient is alert and oriented to person and to place. Disoriented to time. Does have a left-sided residual hemiparesis. LABORATORY DATA: WBC went up to 15.31, hemoglobin is 10.8, and platelet count is 396,000. Chemistry is also reviewed and unremarkable. Sodium is 132. I understand the patient has a stage 2 ulcer on the back. CURRENT MEDICATIONS: 1. Zyvox p.o. 2. . 3. Sucralfate. ASSESSMENT: 1. Altered mental status due to global encephalopathy, likely related to recreational drug use. 2. Multifocal pneumonia, questionable aspiration. Patient is currently on linezolid and we are observing. Aspiration precautions. 3. Critical illness, polymyoneuropathy. 4. History of cerebrovascular accident with left-sided hemiparesis. 5. Hypokalemia, likely due to malnutrition, improving. 6. History of cocaine and other recreational drug use. 7. Anemia due to multifactorial etiologies including iron deficiency. The patient had 4 PRBC transfusion. 8. Transient adrenal insufficiency. PLAN: I think the patient seems to be doing fine. We are still pending placement for her. She is currently on antibiotics. Yet, I think this morning she spiked a temperature and white cell went up. I have been told that she has an ulcer on her back but it does not look infected. Will clean it, recheck on her labs, and follow very closely. If she spikes a temp again, we will re- culture her and start looking for an active source of infection other than what we are treating in the lungs.
[2016-09-11] MEDS: PRILOSEC PO SCH (19:53)
[2016-09-11] MEDS: MINIPRESS PO SCH (22:54)
[2016-09-12] MEDS: PRILOSEC PO SCH ×2 (06:27→12:35)
[2016-09-12 07:32] LABS: MANUAL DIFF NEEDED? NO
[2016-09-12 07:36] LABS: BASO% 0.3 % (0.0-0.8); EOS# 0.39 X1000 (0.0-0.7); EOS% 3.9 % (0.0-10.0); HEMOGLOBIN 10.2 g/dL (12.0-16.0); IMM GRAN# 0.02 X1000 (0.0-0.04); IMM GRAN% 0.2 % (0.0-0.5); LYMPH# 1.84 X1000 (1.2-3.4); LYMPH% 18.6 % (20.5-51.1); MCH 27.3 PG (27-31); MCHC 31.9 g/dL (33-37); MCV 85.8 FL (81-99); MONO# 1.01 X1000 (0.11-0.59); MONO% 10.2 % (1.7-9.3); MPV 10.3 FL (7.4-10.4); NEUT% 66.8 % (42.2-75.2); PLT 354 X1000 (130-400); RBC 3.73 XMIL (4.2-5.4)
--- NOTE | 2016-09-12 07:46 | Diag Imaging Result Document ---
PROCEDURE NAME: CHEST-PORTABLE - 09/12/2016 PORTABLE CHEST X-RAY: COMPARISON: 09/10/2016. FINDINGS: Stable right PICC line. Stable ill-defined infiltrates at the lung bases. Stable borderline heart size. IMPRESSION: No change from prior.
[2016-09-12 08:00] LABS: AGAP 12; BUN 7 mg/dL (8-22); CALCIUM 8.6 mg/dL (8.8-10.2); CHLORIDE 100 mmol/L (98-107); COSMO 260; POTASSIUM 3.3 mmol/L (3.5-5.1); SODIUM 131 mmol/L (136-145); TCO2 19 mmol/L (25-35)
[2016-09-12] MEDS ORDERED: KLOR-CON PO ONE (08:26)
[2016-09-12] MEDS: PRINIVIL PO SCH (12:35)
[2016-09-12] MEDS: CARAFATE PO SCH ×4 (12:35→20:54)
[2016-09-12] MEDS: SOLU-CORTEF IV SCH ×2 (12:49→20:54)
[2016-09-12] MEDS: ZOFRAN IV PRN ×2 (12:49→20:55)
[2016-09-12] MEDS: ZYVOX PO SCH ×2 (12:49→20:54)
--- NOTE | 2016-09-12 17:35 | PROGRESS NOTE ---
DATE: 09/12/2016 Today Ms. Bernard was actually sitting up in the chair when I saw her. She did not really complain of anything. OBJECTIVE: Vital Signs: Stable. Blood pressure is 145/85, pulse is 80, respirations 20, temperature is 97.9 degrees. Physical Exam: Was unchanged from yesterday. ASSESSMENT: 1. Altered mental status due to global encephalopathy. We think it is related to recreational drug abuse. 2. Multifocal pneumonia questionable aspiration. Patient is currently on linezolid and we are observing for aspiration precautions. 3. Critical illness polymyoneuropathy. Will continue giving the patient physical therapy and up to chair. 4. History of with left-sided hemiparesis. 5. Hypokalemia improved. 6. History of cocaine and recreational drug use. 7. Anemia due to multifactorial etiologies include iron deficiency. Patient is status post 4 PRBC transfusion. We will continue with oral supplements. 8. Transient adrenal insufficiency noted. I think the major problem with the patient is we still pending a possible transfer which we do not have any discharge place for her now. Blood pressure is a whole lot better than yesterday.
[2016-09-12] MEDS: MINIPRESS PO SCH (20:53)
[2016-09-12] MEDS: SODIUM CHLORIDE 0.9% INJ SCH (20:54)
[2016-09-12] MEDS: TYLENOL LIQUID PO PRN (21:02)
[2016-09-13] MEDS: SOLU-CORTEF IV SCH ×3 (06:34→22:25)
[2016-09-13] MEDS: PRILOSEC PO SCH (06:34)
[2016-09-13 07:40] LABS: MANUAL DIFF NEEDED? NO
[2016-09-13 07:48] LABS: BASO% 0.3 % (0.0-0.8); EOS# 0.37 X1000 (0.0-0.7); EOS% 4.2 % (0.0-10.0); HEMATOCRIT 33.6 % (37.0-47.0); HEMOGLOBIN 10.7 g/dL (12.0-16.0); IMM GRAN# 0.03 X1000 (0.0-0.04); IMM GRAN% 0.3 % (0.0-0.5); LYMPH% 18.2 % (20.5-51.1); MCHC 31.8 g/dL (33-37); MCV 84.8 FL (81-99); MONO# 0.87 X1000 (0.11-0.59); MONO% 9.9 % (1.7-9.3); MPV 10.1 FL (7.4-10.4); NEUT% 67.1 % (42.2-75.2); PLT 376 X1000 (130-400); RBC 3.96 XMIL (4.2-5.4)
[2016-09-13] MEDS: TYLENOL LIQUID PO PRN (08:22)
[2016-09-13] MEDS: KLOR-CON PO SCH (08:23)
[2016-09-13] MEDS: ZYVOX PO SCH ×2 (08:23→22:23)
[2016-09-13] MEDS: CARAFATE PO SCH ×4 (08:23→22:23)
[2016-09-13] MEDS: PRINIVIL PO SCH (08:23)
[2016-09-13] MEDS: PERICOLACE PO SCH ×2 (12:05→22:24)
[2016-09-13] MEDS: FERROUS SULFATE PO SCH ×2 (12:05→22:23)
--- NOTE | 2016-09-13 15:51 | PROGRESS NOTE ---
DATE: 09/13/2016 SUBJECTIVE: Today Ms. Bernard referred to be doing fine. She was just lying in bed and she was asking when she will be ready to go home. OBJECTIVE: Vital Signs: Stable. Blood pressure is 147/94, pulse of 85, respirations 20, temperature is 98.6 degrees. General: Ms. Bernard is a 51-year-old female. She is in bed, in no distress. HEENT: Mucosa is pink and moist. Anicteric. Acyanotic. Neck: Supple. Chest: Air entry is bilaterally reduced. There is diffuse bilateral end-inspiratory coarse crackles in both lower lungs. Cardiovascular: Regular rate and rhythm. There are no murmurs, no rubs, no gallops. Abdomen: Soft. Extremities: No pedal edema. Patient has a left-sided hemiparesis. OCCUPATIONAL HEALTH AND SAFETY ADVISER: She is alert and awake. Follows some basic commands. Is only oriented to person and place. Disoriented to time. LABORATORY DATA: WBC is 8.79, hemoglobin is 10.7, platelet count of 376,000. There is no chemistry for this morning. ASSESSMENT: 1. Altered mental status due to global encephalopathy. We think this is related to recreational drug abuse. 2. Multifocal pneumonia. Questionable aspiration pneumonia. Patient is currently on linezolid. Today is day 6 on this and we plan to treat her for 10 days. 3. Critical illness polyneuropathy. 4. History of cerebrovascular accident with left-sided hemiparesis, noted. 5. Hypokalemia. Likely due to malnutrition. We will continue to replace this. 6. History of cocaine and recreational drug abuse. 7. Anemia of multifactorial etiologies including iron deficiency. Patient is status post 4 PRBC transfusion. We will continue with oral supplements. 8. Transient adrenal insufficiency. Patient seems to be doing fine. We are going to switch the IV steroids to p.o. PLAN: So in general Ms. Bernard has been in the hospital for the past 34 days. Initially presented because of shortness of breath and some altered mentation to [place] and was subsequently transferred over here because of abdominal discomfort that needed to be evaluated by surgery. During the hospital course the patient develop acute respiratory failure and was intubated. She successfully got extubated and subsequently all of her care has been treating the pneumonia and trying to get her mentation straightened out. Patient has not been able to participate very actively with physical therapy because she has a baseline limitation with left- sided hemiparesis and her cognition is not the best. Either way, the active issue with her now is to treat her aspiration pneumonia for 4 more days of antibiotics. The patient is clinically stable to go home but she does not have anywhere to go and we are pending licensed social worker to get her safely discharged.
[2016-09-13] MEDS: MINIPRESS PO SCH (22:23)
[2016-09-13] MEDS: SODIUM CHLORIDE 0.9% INJ SCH (22:25)
[2016-09-14] MEDS: PRILOSEC PO SCH (06:24)
[2016-09-14 06:40] LABS: MANUAL DIFF NEEDED? NO
[2016-09-14 06:50] LABS: BASO% 0.3 % (0.0-0.8); EOS# 0.06 X1000 (0.0-0.7); EOS% 0.9 % (0.0-10.0); HEMATOCRIT 31.8 % (37.0-47.0); HEMOGLOBIN 10.4 g/dL (12.0-16.0); LYMPH# 1.81 X1000 (1.2-3.4); MCH 27.3 PG (27-31); MCHC 32.7 g/dL (33-37); MCV 83.5 FL (81-99); MONO# 0.63 X1000 (0.11-0.59); MONO% 9.4 % (1.7-9.3); NEUT% 62.4 % (42.2-75.2); PLT 360 X1000 (130-400); RBC 3.81 XMIL (4.2-5.4)
[2016-09-14] MEDS: PRINIVIL PO SCH (08:34)
[2016-09-14] MEDS: KLOR-CON PO SCH (08:34)
[2016-09-14] MEDS: FERROUS SULFATE PO SCH ×2 (08:34→21:35)
[2016-09-14] MEDS: PERICOLACE PO SCH ×2 (08:34→21:35)
[2016-09-14] MEDS: CORTEF PO SCH (08:34)
[2016-09-14] MEDS: CARAFATE PO SCH ×4 (08:34→21:35)
[2016-09-14] MEDS: ZYVOX PO SCH ×2 (08:34→21:35)
[2016-09-14] MEDS: TYLENOL LIQUID PO PRN (09:10)
[2016-09-14] MEDS: ZOFRAN IV PRN (09:10)
[2016-09-14] MEDS: MINIPRESS PO SCH (21:35)
[2016-09-15] MEDS: PRILOSEC PO SCH (06:24)
[2016-09-15 07:04] LABS: MANUAL DIFF NEEDED? NO
[2016-09-15 07:05] LABS: BASO% 0.5 % (0.0-0.8); EOS# 0.23 X1000 (0.0-0.7); EOS% 3.1 % (0.0-10.0); HEMATOCRIT 33.9 % (37.0-47.0); IMM GRAN# 0.03 X1000 (0.0-0.04); IMM GRAN% 0.4 % (0.0-0.5); LYMPH# 1.82 X1000 (1.2-3.4); LYMPH% 24.3 % (20.5-51.1); MCH 27.8 PG (27-31); MCHC 32.4 g/dL (33-37); MCV 85.6 FL (81-99); MONO# 0.79 X1000 (0.11-0.59); MONO% 10.5 % (1.7-9.3); MPV 9.7 FL (7.4-10.4); NEUT% 61.2 % (42.2-75.2); PLT 337 X1000 (130-400); RBC 3.96 XMIL (4.2-5.4)
[2016-09-15 07:43] LABS: AGAP 17; ALKALINE PHOSPHATASE 65 U/L (32-104); BUN 6 mg/dL (8-22); CALCIUM 8.6 mg/dL (8.8-10.2); CHLORIDE 99 mmol/L (98-107); COSMO 262; GOT 11 U/L (10-30); GPT 17 U/L (10-36); POTASSIUM 3.9 mmol/L (3.5-5.1); SODIUM 132 mmol/L (136-145); TCO2 16 mmol/L (25-35); TOTAL PROTEIN 5.8 g/dL (6.3-8.3)
--- NOTE | 2016-09-15 08:45 | PROGRESS NOTE ---
DATE: 09/14/2016 SUBJECTIVE: This patient states that she is feeling better. She is complaining about back pain. When I evaluated this patient, this patient was sitting on the chair, pending placement. OBJECTIVE: Vital Signs: Temperature 98.1 degrees, pulse 78, respiratory rate 16, blood pressure 145/87, O2 saturation 96 on room air. HEENT: Head normocephalic. No trauma. PERRLA. Neck: Supple. No JVD. No masses. Central trachea. Chest: Good air entry bilaterally. Mild scattered rhonchi and crackles, mostly at the bases. Cardiovascular: RRR. No murmurs. Abdomen: Soft. Extremities: No pedal edema. Neurologic: The patient is alert. She is oriented x3. She has left side hemiparesis. Laboratory: WBC 6.7, hemoglobin 10.4, hematocrit 31.8, platelets 360,000. ASSESSMENT AND PLAN: 1. Altered mental status likely secondary to global encephalopathy. Probably also this is related with drug abuse, will continue to monitor. At this time she is oriented. 2. Multifocal pneumonia. Probably this patient also aspirated. We are planning to treat this patient with linezolid for 10 days, she is getting better. 3. Polyneuropathy. Continue with the same management. 4. Cerebrovascular accident with left side hemiparesis. Continue with the same management and physical therapy. 5. History of cocaine and recreational drug abuse aware. This patient has been highly advised against drug abuse, I will continue with daily cessation education. 6. Anemia. This is multifactorial, including iron deficiency anemia. She received already 4 packed red blood cells and will continue with oral supplements. 7. Transient adrenal insufficiency. At the beginning, this patient was placed on intravenous steroids and then was switched to p.o. steroids. Will continue to monitor.
[2016-09-15] MEDS: PRINIVIL PO SCH (10:12)
[2016-09-15] MEDS: ZYVOX PO SCH ×2 (10:12→20:19)
[2016-09-15] MEDS: PERICOLACE PO SCH ×2 (10:12→20:19)
[2016-09-15] MEDS: CARAFATE PO SCH ×4 (10:12→20:19)
[2016-09-15] MEDS: KLOR-CON PO SCH (10:12)
[2016-09-15] MEDS: FERROUS SULFATE PO SCH ×2 (10:12→20:19)
[2016-09-15] MEDS: CORTEF PO SCH (10:13)
--- NOTE | 2016-09-15 16:42 | PROGRESS NOTE ---
DATE: 09/15/2016 SUBJECTIVE: This patient states that she is feeling better. She is asking for water, and the nurse told me that she has been drinking a lot of water. I do believe that this patient should be discharged once she is ready to a long-term facility. I am not quite sure if this patient after 21 days of rehabilitation center can go home and be by herself. She lives with a boyfriend, but I do not think she is mentally stable. OBJECTIVE: Vital signs: Temperature 97.5, pulse 91, respiratory rate 18, blood pressure 116/67, oxygen saturation 99 on room air. HEENT: Head normocephalic. No trauma . PERRLA. Neck: Supple. No JVD. No masses. Central trachea. Chest: Mild scattered rhonchi at the bases. Cardiovascular: Regular rate and rhythm. No murmurs. Abdomen: Soft, nontender, nondistended. No hepatosplenomegaly. Extremities: No edema. No clubbing. Neurological examination: The patient is alert. She is oriented x3. She has left-sided hemiparesis, and she is talking nonsense on and off. LABORATORY: WBC is 7.4, hemoglobin 11, hematocrit 33.9, platelets 337, sodium 132, potassium 3.9, chloride 99, bicarbonate 16, BUN 6, creatinine 0.7, glucose 89, calcium 8.6, albumin 3. ASSESSMENT AND PLAN: 1. Altered mental status, likely secondary to global encephalopathy. Probably this is also related to drug abuse in the past, but we are not able to corroborate this information. At this time, she is oriented, but she is talking nonsense on and off. 2. Multifocal pneumonia. Probably this patient also aspirated. We are currently treating this patient with linezolid for 10 days. Respiratory anand, she is getting better. 3. Polyneuropathy. Continue with the same management. 4. Cerebrovascular accident with left-side hemiparesis. Continue with the same management and physical therapy. 5. History of cocaine and recreational drug abuse. Aware. This patient has been highly advised against drug abuse. I asked her if she is still doing that and she denies this. I will continue with daily cessation education. 6. Anemia. This is multifactorial including iron deficiency anemia. She received already four packed red blood cells. Will continue with oral supplements. 7. Transient adrenal insufficiency. At the beginning, this patient was placed on IV steroids and then she was switched to p.o. steroids. Will continue to monitor.
[2016-09-15] MEDS: MINIPRESS PO SCH (20:18)
[2016-09-15] MEDS: ZOFRAN IV PRN (20:19)
[2016-09-15] MEDS: TYLENOL LIQUID PO PRN (20:19)
[2016-09-16 05:33] LABS: MANUAL DIFF NEEDED? NO
[2016-09-16 05:45] LABS: BASO% 0.4 % (0.0-0.8); EOS# 0.13 X1000 (0.0-0.7); EOS% 1.6 % (0.0-10.0); HEMATOCRIT 32.5 % (37.0-47.0); HEMOGLOBIN 10.4 g/dL (12.0-16.0); IMM GRAN# 0.04 X1000 (0.0-0.04); IMM GRAN% 0.5 % (0.0-0.5); LYMPH# 1.97 X1000 (1.2-3.4); LYMPH% 23.8 % (20.5-51.1); MCH 27.4 PG (27-31); MCV 85.8 FL (81-99); MONO# 0.62 X1000 (0.11-0.59); MONO% 7.5 % (1.7-9.3); MPV 9.9 FL (7.4-10.4); NEUT% 66.2 % (42.2-75.2); PLT 394 X1000 (130-400); RBC 3.79 XMIL (4.2-5.4)
[2016-09-16 05:58] LABS: AGAP 15; BUN 7 mg/dL (8-22); CALCIUM 8.5 mg/dL (8.8-10.2); CHLORIDE 97 mmol/L (98-107); COSMO 262; POTASSIUM 4.1 mmol/L (3.5-5.1); SODIUM 132 mmol/L (136-145); TCO2 20 mmol/L (25-35)
[2016-09-16] MEDS: PRILOSEC PO SCH (06:14)
[2016-09-16] MEDS: ZYVOX PO SCH ×2 (09:14→21:34)
[2016-09-16] MEDS: FERROUS SULFATE PO SCH ×2 (09:14→21:34)
[2016-09-16] MEDS: CARAFATE PO SCH ×4 (09:14→21:34)
[2016-09-16] MEDS: PERICOLACE PO SCH ×2 (09:14→21:34)
[2016-09-16] MEDS: PRINIVIL PO SCH (09:14)
[2016-09-16] MEDS: KLOR-CON PO SCH (09:14)
[2016-09-16] MEDS: CORTEF PO SCH (09:15)
[2016-09-16] MEDS: TYLENOL LIQUID PO PRN (12:02)
[2016-09-16] MEDS: ZOFRAN IV PRN ×2 (12:02→21:44)
--- NOTE | 2016-09-16 17:56 | PROGRESS NOTE ---
DATE: 09/16/2016 SUBJECTIVE: This patient states that she is feeling fine. She is always asking for pain medication, water, and nausea medication. I do believe that this patient should be discharged to a long-term facility. I do not think she can go home with home health and physical therapy. I do not think she is mentally stable to do that. OBJECTIVE: Vital Signs: Temperature 98.3 degrees, pulse 88, respiratory rate 19, blood pressure 116/79, oxygen saturation 98 on room air. HEENT: Head normocephalic. No trauma. PERRLA. Neck: Supple. No JVD. No masses. Central trachea. Chest: Mild scattered rhonchi mostly at the bases. Cardiovascular: RRR. No murmurs. Abdomen: Soft, nontender, nondistended. No hepatosplenomegaly. Extremities: No edema. No clubbing. No cyanosis. Neurological: Patient is alert. She is oriented x2. Today she is not oriented in time. She has left side hemiparesis and she, as per the nurse, talking nonsense on and off. LABORATORY: WBC 8.2, hemoglobin 10.4, hematocrit 32.5, platelets 394,000. Sodium 132, potassium 4.1, chloride 97, bicarbonate 20, BUN 7, creatinine 0.6, glucose 81, calcium 8.5. ASSESSMENT AND PLAN: 1. Altered mental status, likely secondary to global encephalopathy. Probably this is also related to drug abuse in the past. We are not able to corroborate this information though. At this time she is oriented but she is talking nonsense on and off. 2. Multifocal pneumonia. Probably this patient also aspirated. We are currently treating this patient with linezolid for 10 days. Respiratory anand she is getting better. 3. Physical deconditioning. Continue with the same management. Physical therapy is on board. 4. Cerebrovascular accident with left side hemiparesis. Continue with the same management and physical therapy. 5. History of cocaine and recreational drug abuse. Aware. This patient has been highly advised against drug abuse. I asked her if she is still doing that and she denies it. I will continue with daily cessation education. 6. Anemia. This is multifactorial including iron deficiency anemia. She received already 4 packs of red blood cells. We will continue with oral supplement. 7. Transient adrenal insufficiency. At the beginning this patient was placed on IV steroids and then she was switched to p.o. steroids. We will continue to monitor. 8. Overall, this patient is doing much better. I think this patient can be discharged with p.o. treatment. The only problem is that I feel that this patient should go to a long-term facility. I do not think her boyfriend can take care of her. She cannot take care of herself either.
[2016-09-16] MEDS: MINIPRESS PO SCH (21:34)
[2016-09-17] MEDS: PRILOSEC PO SCH (06:30)
[2016-09-17 06:49] LABS: MANUAL DIFF NEEDED? NO
[2016-09-17 06:55] LABS: BASO% 0.2 % (0.0-0.8); EOS# 0.37 X1000 (0.0-0.7); EOS% 3.8 % (0.0-10.0); HEMATOCRIT 33.7 % (37.0-47.0); HEMOGLOBIN 10.9 g/dL (12.0-16.0); IMM GRAN# 0.02 X1000 (0.0-0.04); IMM GRAN% 0.2 % (0.0-0.5); LYMPH# 1.56 X1000 (1.2-3.4); LYMPH% 15.9 % (20.5-51.1); MCH 27.6 PG (27-31); MCHC 32.3 g/dL (33-37); MCV 85.3 FL (81-99); MONO# 0.69 X1000 (0.11-0.59); NEUT% 72.9 % (42.2-75.2); PLT 373 X1000 (130-400); RBC 3.95 XMIL (4.2-5.4)
[2016-09-17 07:20] LABS: AGAP 13; BUN 6 mg/dL (8-22); CALCIUM 8.5 mg/dL (8.8-10.2); CHLORIDE 94 mmol/L (98-107); COSMO 258; POTASSIUM 4.1 mmol/L (3.5-5.1); SODIUM 130 mmol/L (136-145); TCO2 23 mmol/L (25-35)
[2016-09-17] MEDS: KLOR-CON PO SCH (09:47)
[2016-09-17] MEDS: ZYVOX PO SCH ×2 (09:47→20:51)
[2016-09-17] MEDS: FERROUS SULFATE PO SCH ×2 (09:47→20:51)
[2016-09-17] MEDS: CORTEF PO SCH (09:47)
[2016-09-17] MEDS: PRINIVIL PO SCH (09:47)
[2016-09-17] MEDS: ZOFRAN IV PRN (09:47)
[2016-09-17] MEDS: TYLENOL LIQUID PO PRN ×2 (09:47→18:19)
[2016-09-17] MEDS: CARAFATE PO SCH ×4 (09:47→20:52)
[2016-09-17] MEDS: PERICOLACE PO SCH ×2 (09:47→20:52)
--- NOTE | 2016-09-17 15:41 | PROGRESS NOTE ---
DATE: 09/17/2016 SUBJECTIVE: The patient is resting comfortably in bed. She complains of back pain and mild abdominal pain. OBJECTIVE: Vital Signs: Temperature 98 degrees, blood pressure 142/91, heart rate 89, respirations 24, O2 saturation is 100% on room air. General: This is an overweight female lying in bed, in no acute distress. Head: Normocephalic, atraumatic. Heart: S1, S2. Normal. Regular rate and rhythm. Lungs: Clear to auscultation bilaterally. No wheezes. No rales. No rhonchi. Abdomen: Positive bowel sounds. Soft, nontender, nondistended. Extremities: No edema. No cyanosis. No calf tenderness. Neurologic: The patient is awake and alert. LABS: White blood cell count 9.8, hemoglobin 10, hematocrit 33, platelets 373,000. Sodium 130, potassium 4.1, chloride 94, CO2 23, BUN 6, creatinine 0.6, glucose 84. ASSESSMENT AND PLAN: 1. Global encephalopathy. Unchanged. 2. Multifocal pneumonia. Continue on Zyvox. 3. History of cerebrovascular accident with left hemiparesis. Continue with physical therapy. 4. Polysubstance abuse. The patient has been counseled about cessation of her drug habit. 5. Adrenal insufficiency. Continue on Cortef. 6. Disposition. We are currently awaiting rehab placement for the patient.
[2016-09-17] MEDS: MINIPRESS PO SCH (20:51)
[2016-09-18] MEDS: PRILOSEC PO SCH (06:02)
[2016-09-18 06:53] LABS: MANUAL DIFF NEEDED? NO
[2016-09-18 06:58] LABS: BASO% 0.4 % (0.0-0.8); EOS# 0.29 X1000 (0.0-0.7); EOS% 3.4 % (0.0-10.0); HEMATOCRIT 34.7 % (37.0-47.0); HEMOGLOBIN 11.2 g/dL (12.0-16.0); IMM GRAN# 0.02 X1000 (0.0-0.04); IMM GRAN% 0.2 % (0.0-0.5); LYMPH# 1.46 X1000 (1.2-3.4); LYMPH% 17.1 % (20.5-51.1); MCH 27.7 PG (27-31); MCHC 32.3 g/dL (33-37); MCV 85.9 FL (81-99); MONO# 0.74 X1000 (0.11-0.59); MONO% 8.7 % (1.7-9.3); MPV 9.9 FL (7.4-10.4); NEUT% 70.2 % (42.2-75.2); PLT 376 X1000 (130-400); RBC 4.04 XMIL (4.2-5.4)
[2016-09-18 07:20] LABS: AGAP 13; BUN 7 mg/dL (8-22); CHLORIDE 96 mmol/L (98-107); COSMO 263; POTASSIUM 3.6 mmol/L (3.5-5.1); SODIUM 132 mmol/L (136-145); TCO2 23 mmol/L (25-35)
[2016-09-18] MEDS: PRINIVIL PO SCH (08:56)
[2016-09-18] MEDS: PERICOLACE PO SCH ×2 (08:56→20:33)
[2016-09-18] MEDS: CARAFATE PO SCH ×4 (08:56→20:33)
[2016-09-18] MEDS: CORTEF PO SCH (08:56)
[2016-09-18] MEDS: FERROUS SULFATE PO SCH ×2 (08:56→20:33)
[2016-09-18] MEDS: ZYVOX PO SCH ×2 (08:56→20:33)
[2016-09-18] MEDS: KLOR-CON PO SCH (08:56)
[2016-09-18] MEDS: TYLENOL LIQUID PO PRN ×2 (11:03→17:24)
--- NOTE | 2016-09-18 16:16 | PROGRESS NOTE ---
DATE: 09/18/2016 SUBJECTIVE: The patient remains confused at times. She is having regular bowel movements. OBJECTIVE: Vital Signs: Temperature 98 degrees, blood pressure 121/74, heart rate 85, respirations 23, O2 saturations 95% on room air. General: This is an elderly female, lying in bed, in no acute distress. Head: Normocephalic, atraumatic. Heart: S1, S2. Normal. Regular rate and rhythm. Lungs: Clear to auscultation bilaterally. No wheezes, no rales. No rhonchi. Abdomen: Positive bowel sounds. Soft, nontender, nondistended. Extremities: No edema. No cyanosis. No calf tenderness. Neuro: The patient is alert and oriented x3. No focal neurologic deficits noted. LABS: White blood cell count 8.5, hemoglobin 11, hematocrit 34, platelets 376, 000. Sodium 132, potassium 3.6, BUN 7, creatinine 0.7, glucose 107. ASSESSMENT AND PLAN: 1. Global encephalopathy. Unchanged. The patient does have frequent periods of confusion. 2. Multifocal pneumonia. Continue on Zyvox. 3. Polysubstance abuse. Aware. 4. Adrenal insufficiency. Continue on cortef. 5. History of cerebrovascular accident with left hemiparesis. Continue with physical therapy. 6. Disposition. I will continue with physical therapy. Once the patient is able to ambulate adequately she should be stable for discharge home with family. MTDD
[2016-09-18] MEDS: MINIPRESS PO SCH (20:40)
[2016-09-19] MEDS: PRILOSEC PO SCH (05:59)
[2016-09-19] MEDS: TYLENOL LIQUID PO PRN ×3 (06:00→16:10)
[2016-09-19 07:03] LABS: MANUAL DIFF NEEDED? NO
[2016-09-19 07:07] LABS: BASO% 0.3 % (0.0-0.8); EOS# 0.21 X1000 (0.0-0.7); EOS% 2.2 % (0.0-10.0); HEMATOCRIT 33.2 % (37.0-47.0); HEMOGLOBIN 10.7 g/dL (12.0-16.0); IMM GRAN# 0.02 X1000 (0.0-0.04); IMM GRAN% 0.2 % (0.0-0.5); LYMPH# 1.53 X1000 (1.2-3.4); LYMPH% 16.3 % (20.5-51.1); MCHC 32.2 g/dL (33-37); MCV 86.9 FL (81-99); MONO# 0.77 X1000 (0.11-0.59); MONO% 8.2 % (1.7-9.3); MPV 9.6 FL (7.4-10.4); NEUT% 72.8 % (42.2-75.2); PLT 360 X1000 (130-400); RBC 3.82 XMIL (4.2-5.4)
[2016-09-19 07:25] LABS: HEMOGLOBIN A1C 4.4 % (4.8-6.0)
[2016-09-19] MEDS: PRINIVIL PO SCH (09:54)
[2016-09-19] MEDS: CORTEF PO SCH (09:54)
[2016-09-19] MEDS: PERICOLACE PO SCH ×2 (09:54→21:58)
[2016-09-19] MEDS: CARAFATE PO SCH ×4 (09:54→21:59)
[2016-09-19] MEDS: FERROUS SULFATE PO SCH ×2 (09:54→21:59)
[2016-09-19] MEDS: ZYVOX PO SCH ×2 (09:54→21:59)
[2016-09-19] MEDS: KLOR-CON PO SCH (09:56)
[2016-09-19] MEDS ORDERED: CALMOSEPTINE OINTMENT TOP PRN (10:09)
--- NOTE | 2016-09-19 13:04 | PROGRESS NOTE ---
DATE: 09/19/2016 SUBJECTIVE: The patient is resting comfortably in bed. She has no complaints. OBJECTIVE: Vital Signs: Temperature 98 degrees, blood pressure 117/76, heart rate 86, respirations 18, O2 saturations 98% on room air. General: This is an overweight female, lying in bed in no acute distress. Head: Normocephalic, atraumatic. Heart: S1, S2. Normal. Regular rate and rhythm. Lungs: Clear to auscultation bilaterally. No wheezes, no rales. No rhonchi. Abdomen: Positive bowel sounds. Soft, nontender, nondistended. Extremities: No edema. No cyanosis. No calf tenderness. Neurologic: The patient is awake and alert, but has periods of confusion. LABS: Hemoglobin 10, hematocrit 33, platelets 360. ASSESSMENT AND PLAN: 1. Global encephalopathy, unchanged. 2. Multifocal pneumonia. We will repeat a chest x-ray today. We should be able to stop antibiotic therapy today. 3. Adrenal insufficiency. Continue on Cortef. 4. Polysubstance abuse. Aware. 5. History of cerebrovascular accident with left hemiparesis. Continue with physical therapy. DISPOSITION: Once the patient is able to ambulate adequately, she should be able to be discharged home with family.
--- NOTE | 2016-09-19 14:11 | Diag Imaging Result Document ---
PROCEDURE NAME: CHEST-PORTABLE - 09/19/2016 PORTABLE CHEST X-RAY: COMPARISON: 09/12/2016. FINDINGS: Stable right PICC line in good position. There is a suggestion of a nodular infiltrate at the left upper lobe. Heart size remains grossly normal. No pneumothorax or large effusion. IMPRESSION: Small nodule or nodular infiltrate in the left upper lobe not present on prior exams.
--- NOTE | 2016-09-19 15:44 | Diag Imaging Result Document ---
PROCEDURE NAME: ANGIOGRAM/PULMONARY ARTERIES - 09/19/2016 CT PULMONARY ANGIOGRAM WITH INTRAVENOUS CONTRAST: A CT dose reduction protocol was used. COMPARISON: 08/25/2016. FINDINGS: Axial CT images of the chest were obtained after administering intravenous contrast. Coronal MIP images were generated. There is no pulmonary embolism. There is significant improvement in the bilateral infiltrates with upper lobe predominance. There is still some patchy upper lobe infiltrate as well as left lower lobe infiltrate. There is significant improvement in the interstitial opacities throughout the lungs compatible with pulmonary edema. Heart size remains normal. Upper abdominal images are unremarkable. Bony structures are intact. There is a right PICC line in good position. IMPRESSION: 1. Negative for pulmonary embolism. 2. Improvement in the bilateral pneumonia and pulmonary edema. [facility]
[2016-09-19] MEDS: MINIPRESS PO SCH (21:59)
[2016-09-20] MEDS: PRILOSEC PO SCH (06:13)
[2016-09-20 07:12] LABS: MANUAL DIFF NEEDED? NO
[2016-09-20 07:18] LABS: BASO% 0.3 % (0.0-0.8); EOS# 0.34 X1000 (0.0-0.7); EOS% 3.8 % (0.0-10.0); HEMATOCRIT 33.7 % (37.0-47.0); HEMOGLOBIN 10.9 g/dL (12.0-16.0); IMM GRAN# 0.02 X1000 (0.0-0.04); IMM GRAN% 0.2 % (0.0-0.5); LYMPH# 1.82 X1000 (1.2-3.4); LYMPH% 20.4 % (20.5-51.1); MCH 28.1 PG (27-31); MCHC 32.3 g/dL (33-37); MCV 86.9 FL (81-99); MONO# 0.73 X1000 (0.11-0.59); MONO% 8.2 % (1.7-9.3); MPV 9.4 FL (7.4-10.4); NEUT% 67.1 % (42.2-75.2); PLT 359 X1000 (130-400); RBC 3.88 XMIL (4.2-5.4)
[2016-09-20 07:35] LABS: AGAP 16; BUN 7 mg/dL (8-22); CALCIUM 8.9 mg/dL (8.8-10.2); CHLORIDE 94 mmol/L (98-107); COSMO 258; POTASSIUM 3.8 mmol/L (3.5-5.1); SODIUM 130 mmol/L (136-145); TCO2 20 mmol/L (25-35)
[2016-09-20] MEDS ORDERED: SAMSCA PO ONE (08:48)
[2016-09-20] MEDS: TYLENOL LIQUID PO PRN (10:20)
[2016-09-20] MEDS: ZYVOX PO SCH (10:21)
[2016-09-20] MEDS: PERICOLACE PO SCH ×2 (10:22→21:19)
[2016-09-20] MEDS: KLOR-CON PO SCH (10:22)
[2016-09-20] MEDS: CORTEF PO SCH (10:22)
[2016-09-20] MEDS: PRINIVIL PO SCH (10:22)
[2016-09-20] MEDS: FERROUS SULFATE PO SCH ×2 (10:22→21:19)
[2016-09-20] MEDS: CARAFATE PO SCH ×4 (10:22→21:19)
[2016-09-20] MEDS: ZOFRAN IV PRN ×2 (14:03→21:22)
--- NOTE | 2016-09-20 19:02 | PROGRESS NOTE ---
DATE: 09/20/2016 SUBJECTIVE: The patient has no complaints. No acute events noted overnight. OBJECTIVE: Vital Signs: Temperature 98.5 degrees, blood pressure 109/77, heart rate 97, respirations 16, O2 saturations 99% on room air. General: This is a middle-aged female, lying in bed, in no acute distress. Head: Normocephalic, atraumatic. Heart: S1, S2 normal. Regular rate and rhythm. Lungs: Clear to auscultation bilaterally. No wheezes, no rales, no rhonchi. Abdomen: Positive bowel sounds. Soft, nontender, nondistended. Extremities: No edema. No cyanosis. Neurologic: The patient is awake and alert. LABS: Reviewed. ASSESSMENT AND PLAN: 1. Global encephalopathy. Stable. 2. Multifocal pneumonia. The patient has completed treatment. 3. Adrenal insufficiency. Continue on Cortef. 4. Polysubstance abuse. Aware. 5. History of cerebrovascular accident with left hemiparesis. Continue with physical therapy. 6. Generalized weakness. The patient is currently working with Physical Therapy. Once she is able to walk at least 75 feet she should be stable for discharge home with her boyfriend.
[2016-09-20] MEDS: MINIPRESS PO SCH (21:19)
[2016-09-21] MEDS: PRILOSEC PO SCH (06:27)
[2016-09-21] MEDS: PERICOLACE PO SCH ×2 (08:52→23:04)
[2016-09-21] MEDS: CORTEF PO SCH (08:52)
[2016-09-21] MEDS: PRINIVIL PO SCH (08:52)
[2016-09-21] MEDS: CARAFATE PO SCH ×4 (08:52→23:04)
[2016-09-21] MEDS: TYLENOL LIQUID PO PRN ×3 (08:52→23:10)
[2016-09-21] MEDS: KLOR-CON PO SCH (08:52)
[2016-09-21] MEDS: FERROUS SULFATE PO SCH ×2 (08:52→23:04)
[2016-09-21] MEDS: ZOFRAN IV PRN ×2 (15:06→23:10)
--- NOTE | 2016-09-21 17:22 | PROGRESS NOTE ---
DATE: 09/21/2016 SUBJECTIVE: The patient is resting comfortably in bed. She has no complaints. The patient was not very motivated to participate in physical therapy. OBJECTIVE: Vital Signs: Temperature 98.6, blood pressure 122/78, heart rate 94 , respirations 20, O2 saturations 97% on room air. General: This is an elderly female, lying in bed, in no acute distress. Head: Normocephalic, atraumatic. Heart: S1, S2. Normal. Regular rate and rhythm. Lungs: Clear to auscultation bilaterally. No wheezing, no rales. No rhonchi. Abdomen: Positive bowel sounds. Soft, nontender, nondistended. Extremities: No edema. No cyanosis. No calf tenderness. Neurologic: The patient is awake and alert. However, the patient is confused, which is her baseline. LABS: None. ASSESSMENT AND PLAN: 1. Global encephalopathy, stable. 2. Pneumonia. Resolved. 3. Adrenal insufficiency. Continue on cortef.. 4. Polysubstance abuse. Aware. 5. History of cerebrovascular accident with left hemiparesis. Continue with physical therapy. 6. Generalized weakness. Continue to encourage the patient to participate in physical therapy. DISPOSITION: The patient does not have a safe discharge plan at this time. Wheat Buyer is aware and is working on a solution. MTDD
[2016-09-21] MEDS: MINIPRESS PO SCH (23:03)
[2016-09-22] MEDS: PRILOSEC PO SCH (06:32)
[2016-09-22] MEDS: ZOFRAN IV PRN (06:34)
[2016-09-22] MEDS: TYLENOL LIQUID PO PRN ×2 (06:34→23:36)
[2016-09-22 07:26] LABS: AGAP 13; BUN 7 mg/dL (8-22); CALCIUM 9.4 mg/dL (8.8-10.2); CHLORIDE 96 mmol/L (98-107); COSMO 260; POTASSIUM 4.5 mmol/L (3.5-5.1); SODIUM 131 mmol/L (136-145); TCO2 22 mmol/L (25-35)
[2016-09-22] MEDS: KLOR-CON PO SCH (09:49)
[2016-09-22] MEDS: PRINIVIL PO SCH (09:49)
[2016-09-22] MEDS: CARAFATE PO SCH ×4 (09:49→21:07)
[2016-09-22] MEDS: FERROUS SULFATE PO SCH ×2 (09:49→21:07)
[2016-09-22] MEDS: CORTEF PO SCH (09:49)
[2016-09-22] MEDS: PERICOLACE PO SCH ×2 (09:49→21:07)
--- NOTE | 2016-09-22 13:41 | PROGRESS NOTE ---
DATE: 09/22/2016 SUBJECTIVE: The patient is resting comfortably in bed. She has no complaints. OBJECTIVE: Vital Signs: Temperature 98.6 degrees, blood pressure 126/73, heart rate 95, respirations 20, O2 saturations 99% on room air. General: This is an elderly female lying in bed in no acute distress. Head: Normocephalic, atraumatic. Heart: S1, S2. Normal. Regular rate and rhythm. Lungs: Clear to auscultation bilaterally. No wheezes, no rales. No rhonchi. Abdomen: Positive bowel sounds. Soft, nontender, nondistended. Extremities: No edema. No cyanosis. Neuro: The patient is awake but confused. LABS: Sodium 131, potassium 4.5, chloride 96, CO2 22, BUN 7, creatinine 0.6. ASSESSMENT AND PLAN: 1. Global encephalopathy. Stable. 2. Hyponatremia. This appears to be chronic. 3. History of cerebrovascular accident with left hemiparesis. Continue with physical therapy. 4. Pneumonia. Resolved. 5. Polysubstance abuse. Aware. 6. Adrenal insufficiency. Continue on Cortef.
[2016-09-22] MEDS: MINIPRESS PO SCH (21:07)
[2016-09-23] MEDS: PRILOSEC PO SCH (06:01)
[2016-09-23] MEDS: FERROUS SULFATE PO SCH ×2 (08:52→21:01)
[2016-09-23] MEDS: PRINIVIL PO SCH (08:52)
[2016-09-23] MEDS: CORTEF PO SCH (08:52)
[2016-09-23] MEDS: CARAFATE PO SCH ×4 (08:52→21:01)
[2016-09-23] MEDS: PERICOLACE PO SCH ×3 (08:52→21:05)
[2016-09-23] MEDS: KLOR-CON PO SCH (08:52)
[2016-09-23] MEDS: ZOFRAN IV PRN ×2 (10:17→22:42)
[2016-09-23] MEDS: TYLENOL LIQUID PO PRN (10:17)
[2016-09-23] MEDS: LOVENOX SUBQ SCH (16:39)
[2016-09-23] MEDS: MINIPRESS PO SCH (21:01)
[2016-09-23] MEDS: TYLENOL PO PRN (22:34)
--- NOTE | 2016-09-24 03:02 | PROGRESS NOTE ---
DATE: 09/23/2016 SUBJECTIVE: The patient has no complaints. No acute events noted overnight. OBJECTIVE: Vital Signs: Temperature 98.1 degrees, blood pressure 120/71, heart rate 86, respirations 20, O2 saturation is 97% on room air. General: This is an elderly female, lying in bed, in no acute distress. Head: Normocephalic, atraumatic. Heart: S1, S2. Normal. Regular rate and rhythm. Lungs: Clear to auscultation bilaterally. No wheezing. No rales. No rhonchi. Abdomen: Positive bowel sounds. Soft, nontender, nondistended. Extremities: No edema. No cyanosis. Neurologic: The patient is awake but confused. LABS: None. ASSESSMENT AND PLAN: 1. Global encephalopathy. Stable. 2. Chronic hyponatremia. Stable. 3. History of cerebrovascular accident with left hemiparesis. Continue with physical therapy. 4. Polysubstance abuse. Aware. 5. Adrenal insufficiency. Continue on Cortef. 6. Pneumonia. Resolved. 7. Continue with physical therapy. 8. Disposition. nutritional services cook is currently working on a safe discharge plan for the patient.
[2016-09-24] MEDS: PRILOSEC PO SCH (05:59)
[2016-09-24] MEDS: ZOFRAN IV PRN (06:05)
[2016-09-24] MEDS: TYLENOL PO PRN (06:05)
[2016-09-24 07:28] LABS: HEMATOCRIT 35.4 % (37.0-47.0); HEMOGLOBIN 11.3 g/dL (12.0-16.0); MCH 28.4 PG (27-31); MCHC 31.9 g/dL (33-37); MCV 88.9 FL (81-99); RBC 3.98 XMIL (4.2-5.4)
[2016-09-24 07:38] LABS: AGAP 15; BUN 7 mg/dL (8-22); CHLORIDE 94 mmol/L (98-107); COSMO 260; SODIUM 130 mmol/L (136-145); TCO2 21 mmol/L (25-35)
[2016-09-24] MEDS: CARAFATE PO SCH ×4 (08:30→21:55)
[2016-09-24] MEDS: PERICOLACE PO SCH ×3 (08:30→21:55)
[2016-09-24] MEDS: CORTEF PO SCH (08:30)
[2016-09-24] MEDS: PRINIVIL PO SCH (08:31)
[2016-09-24] MEDS: FERROUS SULFATE PO SCH ×2 (08:31→21:55)
[2016-09-24] MEDS: LOVENOX SUBQ SCH (13:35)
[2016-09-24] MEDS ORDERED: SAMSCA PO ONE (14:48)
--- NOTE | 2016-09-24 19:46 | PROGRESS NOTE ---
DATE: 09/24/2016 SUBJECTIVE: Patient reports feeling fine. OBJECTIVE: Vital Signs: Temperature 98.0 degrees, heart rate 74, respiratory rate 23, blood pressure 110/75, O2 saturation 99% on room air. General Examination: This is a chronically ill- looking, elderly, female lying in bed, in no acute distress. HEENT: Head is normocephalic, atraumatic. Anicteric sclerae. Pale conjunctivae. Mucous membranes moist. Neck: Supple. No JVD noted. No carotid bruits. No lymphadenopathy. No thyromegaly. Cardiovascular examination: S1, S2 heard. No murmurs, gallops, or rubs. Regular rate and rhythm. Respiratory Examination: Clear bilaterally to auscultation. No work of breathing or use of accessory muscles. Abdomen: Soft, nontender to palpation. Bowel sounds present. No organomegaly. Extremities: No clubbing, cyanosis, or edema. Peripheral pulses present in both legs. Neurological Examination: Patient moves 4 extremities. She is awake but still confused. LABORATORY DATA: Unknown. ASSESSMENT AND PLAN: 1. Global encephalopathy. Stable. 2. Chronic hyponatremia is stable. We have checked labs today and her sodium is 130. 3. History of cerebrovascular accident with left hemiparesis. Stable. Physical Therapy working with the patient. 4. Polysubstance abuse. We are aware of that. 5. Adrenal insufficiency. Patient is on Cortef oral. 6. Pneumonia. That condition is completely resolved. 7. Physical deconditioning. Physical Therapy is working with this patient. 8. This patient is medically stable. reinforcing steel worker is currently working on a self-discharge plan for this patient.
[2016-09-24] MEDS: MINIPRESS PO SCH (21:55)
[2016-09-25] MEDS: PRILOSEC PO SCH (07:00)
[2016-09-25] MEDS: CARAFATE PO SCH ×4 (09:57→21:08)
[2016-09-25] MEDS: CORTEF PO SCH (09:57)
[2016-09-25] MEDS: PRINIVIL PO SCH (09:57)
[2016-09-25] MEDS: FERROUS SULFATE PO SCH ×2 (09:57→21:07)
[2016-09-25] MEDS: PERICOLACE PO SCH ×2 (09:57→21:08)
[2016-09-25] MEDS: TYLENOL PO PRN (10:06)
--- NOTE | 2016-09-25 15:02 | PROGRESS NOTE ---
DATE: 09/25/2016 SUBJECTIVE: The patient reports feeling fine. Patient reports feeling some pain in the back. OBJECTIVE: Vital Signs: Temperature 98.6 degrees, heart rate 103, respiratory rate 21, blood pressure 111/77, oxygen saturation 96% on room air. General Examination: This is a chronically ill-appearing, elderly female, lying in bed in no acute distress. HEENT: Head is normocephalic, atraumatic. Anicteric sclerae and pale conjunctivae. Mucous membranes moist. Neck: Supple. No JVD noted. No carotid bruits. No lymphadenopathy. No thyromegaly. Cardiovascular: S1 and S2 heard. No murmurs, gallops, or rubs. Regular rate and rhythm. Respiratory: Clear bilaterally to auscultation. No work of breathing or use of accessory muscles. Abdomen: Soft, nontender to palpation. Bowel sounds present. No organomegaly. Extremities: No clubbing, cyanosis, or edema. Peripheral pulses present in both legs. Neurological: Patient alert and oriented x3. Able to move 4 extremities. LABORATORY DATA: None. ASSESSMENT AND PLAN: 1. Global encephalopathy. Stable. 2. Chronic hyponatremia. We have not checked laboratories today, but I think the sodium will be pretty similar to 2 from yesterday. 3. History of cerebrovascular accident with left hemiparesis, stable. 4. Polysubstance abuse. We are aware of that. 5. Adrenal insufficiency. Patient is on Cortef oral. 6. Pneumonia. That condition has completely resolved. 7. Physical deconditioning. PT working with this patient. This patient is medically stable, so director of social work is currently working on a safe discharge plan for this patient.
[2016-09-25] MEDS: DIFLUCAN PO SCH (16:07)
[2016-09-25] MEDS: LOVENOX SUBQ SCH (16:07)
[2016-09-25] MEDS: MINIPRESS PO SCH (21:08)
[2016-09-26] MEDS: PRILOSEC PO SCH (06:23)
[2016-09-26] MEDS: ZOFRAN IV PRN ×2 (07:23→15:48)
[2016-09-26] MEDS: FERROUS SULFATE PO SCH ×2 (09:34→20:52)
[2016-09-26] MEDS: CARAFATE PO SCH ×4 (09:34→20:52)
[2016-09-26] MEDS: TYLENOL PO PRN ×2 (09:34→15:48)
[2016-09-26] MEDS: PERICOLACE PO SCH ×2 (09:34→20:52)
[2016-09-26] MEDS: PRINIVIL PO SCH (09:34)
[2016-09-26] MEDS: DIFLUCAN PO SCH (09:34)
[2016-09-26] MEDS: CORTEF PO SCH (09:34)
--- NOTE | 2016-09-26 11:49 | PROGRESS NOTE ---
DATE: 09/26/2016 SUBJECTIVE: Patient reports feeling fine. Reporting mild back pain. No fever or chills. OBJECTIVE: Vital Signs: Temperature 98.0 degrees, heart rate 86, respiratory rate 19, blood pressure 124/80, O2 saturation 97% on room air. General examination: This is a chronically ill appearing and frail, 51-year-old female, looking older than her age, lying in bed in no acute distress. HEENT: Head is normocephalic, atraumatic. Anicteric sclerae and pale conjunctivae. Mucous membranes moist. Neck: Supple. No JVD noted. No carotid bruits. No lymphadenopathy. No thyromegaly. Cardiovascular exam: S1, S2 heard. No murmurs, gallops, or rubs. Regular rate and rhythm. Respiratory exam: Clear bilaterally to auscultation. No work of breathing or using accessory muscles. Abdomen: Soft, nontender to palpation. Bowel sounds present. No organomegaly. Extremities: No clubbing, cyanosis, or edema. Peripheral pulses present in both legs. Neurological exam: Patient moves 4 extremities. Alert and oriented x3. LABORATORY DATA: Unknown. ASSESSMENT AND PLAN: 1. Global encephalopathy. That condition is stable. 2. Chronic hyponatremia. We have checked labs today. 3. History of cerebrovascular accident with left hemiparesis, stable. 4. Polysubstance abuse. Patient has not used any drugs since admission. 5. Adrenal insufficiency. Patient is receiving Cortef oral. 6. Pneumonia. That condition is resolved. 7. Physical deconditioning. Physical therapy working with this patient. As per physical therapy team, they said that patient is not able to go from the bed to the chair by herself. We will continue with physical therapy here and perinatal social worker currently working on safe discharge plan for this patient.
[2016-09-26] MEDS: LOVENOX SUBQ SCH (15:48)
[2016-09-26] MEDS: MINIPRESS PO SCH (20:52)
[2016-09-27] MEDS: TYLENOL PO PRN ×3 (01:04→16:55)
[2016-09-27] MEDS: PRILOSEC PO SCH (06:11)
[2016-09-27] MEDS: FERROUS SULFATE PO SCH ×2 (10:51→20:15)
[2016-09-27] MEDS: CARAFATE PO SCH ×4 (10:51→20:15)
[2016-09-27] MEDS: CORTEF PO SCH (10:51)
[2016-09-27] MEDS: PERICOLACE PO SCH ×2 (10:51→20:15)
[2016-09-27] MEDS: ZOFRAN IV PRN ×2 (10:51→16:55)
[2016-09-27] MEDS: DIFLUCAN PO SCH (10:51)
[2016-09-27] MEDS: PRINIVIL PO SCH (10:51)
--- NOTE | 2016-09-27 13:25 | PROGRESS NOTE ---
DATE: 09/27/2016 SUBJECTIVE: Patient reports feeling fine, just mild back pain like yesterday. Denies any fever or chills. OBJECTIVE: Vital signs: Temperature 98.1, heart rate 92, respiratory rate 20, blood pressure 111/23, O2 saturation 100% on room air. General examination: This is a chronically ill appearing and frail 51-year-old female looking older than her age lying in bed in no acute distress. HEENT: Head is normocephalic and atraumatic. Neck: Supple. No JVD. Cardiovascular exam: S1, S2 heard. No murmur, gallops, or rubs. Respiratory exam: Clear bilaterally to auscultation. Abdomen: Soft, nontender to palpation. Bowel sounds present. No organomegaly. Extremities: No clubbing, cyanosis, or edema. Neurological exam: Patient moves four extremities. Alert and oriented x3. LABORATORY DATA: None. ASSESSMENT AND PLAN: 1. Global encephalopathy. That condition is completely resolved. 2. Chronic hyponatremia. We have not checked labs today. 3. History of cerebrovascular accident with left hemiparesis, stable and aware. 4. Polysubstance abuse. Patient has not used any drugs since admission. 5. Adrenal insufficiency. We are going to continue with Cortef oral. 6. Pneumonia, resolved. 7. Physical deconditioning. insulation worker interior surface and director case are working for a safe discharge plan on this patient.
[2016-09-27] MEDS: LOVENOX SUBQ SCH (14:06)
[2016-09-27] MEDS: MINIPRESS PO SCH (20:15)
[2016-09-28] MEDS: PRILOSEC PO SCH (06:14)
[2016-09-28] MEDS: PRINIVIL PO SCH (08:22)
[2016-09-28] MEDS: CARAFATE PO SCH ×2 (08:22→14:09)
[2016-09-28] MEDS: FERROUS SULFATE PO SCH (08:22)
[2016-09-28] MEDS: TYLENOL PO PRN (08:22)
[2016-09-28] MEDS: CORTEF PO SCH (08:22)
[2016-09-28] MEDS: DIFLUCAN PO SCH (08:22)
[2016-09-28] MEDS: PERICOLACE PO SCH (08:22)
[2016-09-28] MEDS: LOVENOX SUBQ SCH (14:09)
[2016-09-28 14:52] VITALS: BP 112/73
--- NOTE | 2016-09-28 15:08 | DISCHARGE SUMMARY ---
ADMISSION DATE: 08/10/2016 DISCHARGE DATE: 09/28/2016 ADMISSION DIAGNOSES: 1. Colonic ileus. 2. Left lower lobe pneumonia. 3. Urinary tract infection with possible pyelonephritis. 4. Hyponatremia. 5. Leukocytosis. 6. Hypokalemia. 7. Acute kidney injury. 8. Transaminitis. 9. Cocaine drug use. 10. Hypertension. 11. History of chronic obstructive pulmonary disease. 12. Nicotine dependence. 13. Bipolar disorder. DISCHARGE DIAGNOSES: 1. Global encephalopathy. 2. Chronic hyponatremia. 3. Polysubstance abuse. 4. Adrenal insufficiency. 5. Pneumonia. 6. Physical deconditioning. 7. History of cerebrovascular accident with left hemiparesis. 8. Respiratory failure, which resolved. 9. Nicotine dependence. DISCHARGE MEDICATIONS: 1. Phenergan 25 mg p.o. b.i.d. p.r.n. nausea. 2. Singulair 10 mg p.o. daily. 3. Reglan 10 mg p.o. q.6 hours p.r.n. nausea. 4. Albuterol inhaler 2 puffs q.6 hours p.r.n. wheezing. 5. Ibuprofen 800 mg p.o. b.i.d. 6. Zofran ODT 8 mg p.o. q.8 hours p.r.n. nausea. 7. Trazodone 100 mg p.o. at bedtime. 8. Carafate 1 g p.o. 4 times a day. 9. Prazosin 2 mg p.o. at bedtime. 10. Omeprazole 40 mg p.o. daily. 11. Lisinopril 5 mg p.o. daily. 12. Gabapentin 800 mg p.o. t.i.d. 13. Diflucan 150 mg p.o. daily. 14. Ferrous sulfate 325 mg p.o. b.i.d. DISCHARGE SUMMARY: In brief, Ms. Bernard is a 51-year-old female with a prior history of hypertension, COPD, reflux, cocaine abuse, medical noncompliance, previous CVA with residual left- sided hemiparesis, and nicotine dependence that presented to the emergency room on date of admission complaining of several days preceding nausea, vomiting, cough, congestion, and vague abdominal pain. From the emergency room, she was admitted initially to [place] [facility] for colonic ileus and left lower lobe pneumonia, UTI, and other initial admission diagnoses. Initially, on 08/12/2016 both GI and surgery were consulted to help assist with her care for her colonic ileus and abdominal pain. Her condition continued to deteriorate, and on 08/13/2016 she was placed on BiPAP and subsequently intubated on 08/14/2016 for respiratory failure, possible drug withdrawal and was found to have bilateral pneumonia. She continued to be placed in ICU with close observation and was treated for her pneumonia. She also had metabolic acidosis on presentation that continued to improve, as well as found to have iron deficiency anemia and did have transfusions during her stay to help with this. She did receive initially Levaquin and, with deteriorating condition, vancomycin was added. With IV antibiotic and supportive care, she continued to improve and was extubated on 08/21/2016. She did have 2 separate venous Dopplers due to her elevated D-dimer and respiratory failure and both were negative. She also had a head CT which showed no acute abnormality. Regarding her colon concerns and ileus, she did have an NG tube and decompression and that seemed to resolve as well. On 09/08/2016, she was began on hydrocortisone IV after she was found to have a cortisol level of 13.8 and transition to p.o. essentially due to her adrenal insufficiency. After continued physical therapy and supportive care, she was evaluated as possibly ready for discharge on 09/15/2016 but continued to have difficulty finding placement for her. Upon discharge, she was continued to be monitored and given supportive care as well physical therapy, and placement was eventually found for her to go rehab for further physical therapy and assisted needs. CONSULTATIONS: 1. Dr. Leon Banks, Surgery. 2. Dr. Dariusz Palacios, GI. 3. Dr. Leigh Ann Álvarez, Pulmonology. DIAGNOSTICS: The patient had an initial abdomen and pelvis CT on admission that showed a colonic ileus of the proximal colon. She had multiple chest x-rays during her stay due to her pneumonia with the last being on 09/19/2016 which showed resolution of her pneumonia. It did show a small nodule in the left upper lobe. She also underwent a CTA which was negative for PE and showed improvement of the pneumonia and pulmonary edema. That was on 09/19/2016. Again, she had 2 venous Dopplers during her stay which were both negative. She had a head CT during her stay which showed no acute abnormality. She had subsequent chest, abdomen, and pelvis CT on 08/25/2016 which showed pulmonary edema, pneumonia on the CT of her chest with the CT of her abdomen showing no acute disease in the abdomen or pelvis. DISCHARGE TIME: 35 minutes. Dictated by PREETI Gonzalez for Didier Aguirre MD cc: PREETI Gonzalez MD
== END 2016-09-28 17:50 | disposition home or self-care (01) ==
LOC: P.ED 17:45 → P.ICU 22:31 → ICU 08-11 18:12 → 3N 08-22 20:29 → 4N 09-07 06:58 → 3N 09-10 15:38
PROVIDERS: ATTEND Internal Medicine

== ENCOUNTER 2017-01-05 21:14 | Inpatient (IN) ==
[2017-01-05] MEDS ORDERED: TYLENOL PO ONE (21:27)
[2017-01-05] MEDS ORDERED: NS 1,000 ML IV ONE (21:27)
[2017-01-05] MEDS ORDERED: ZOFRAN IV ONE (21:27)
[2017-01-05 22:03] LABS: BE -3.8 mmoll (-3.0-3.0); BLOOD TYPE ARTERIAL; DRAW SITE L RADIAL; METHB 1.4 % (0.0-1.5); O2(CT) 18.8 mL/dL (15.0-23.0); PCO2(98.6) 30 mmHg (35-45); PO2(98.6) 75 mmHg (60-100); SAMPLE BLOOD; SAO2 97.4 % (95.0-100.0); THB 14.3 g/dL (11.5-17.4); pH(98.6) 7.42 (7.35-7.45)
[2017-01-05 22:04] LABS: HEMATOCRIT 39.9 % (37.0-47.0); HEMOGLOBIN 14.2 g/dL (12.0-16.0); IMM GRAN# 0.06 X1000 (0.0-0.04); IMM GRAN% 0.3 % (0.0-0.5); LYMPH# 0.88 X1000 (1.2-3.4); LYMPH% 3.8 % (20.5-51.1); MANUAL DIFF NEEDED? NO; MCH 30.9 PG (27-31); MCHC 35.6 g/dL (33-37); MCV 86.9 FL (81-99); MONO# 1.53 X1000 (0.11-0.59); MONO% 6.6 % (1.7-9.3); MPV 10.5 FL (7.4-10.4); NEUT% 89.3 % (42.2-75.2); PLT 469 X1000 (130-400); RBC 4.59 XMIL (4.2-5.4)
[2017-01-05 22:05] LABS: ALLEN TEST YES; MODALITY ROOM AIR
--- NOTE | 2017-01-05 22:06 | EKG Report ---
Test Performed on : 01/05/2017 9:38:42 PM Test Reason : tachycardia Blood Pressure : / mmHG Vent. Rate : 123 BPM Atrial Rate : 123 BPM P-R Int : 170 ms QRS Dur : 078 ms QT Int : 298 ms P-R-T Axes : 064 055 080 degrees QTc Int : 426 ms Sinus tachycardia. Biatrial enlargement ST elevation, consider early repolarization, pericarditis, or injury Nonspecific ST abnormality Abnormal ECG When compared with ECG of 07-SEP-2016 00:13, Questionable change in QRS axis ST elevation now present in Inferior leads Unconfirmed Result
[2017-01-05] MEDS ORDERED: SODIUM CHLORIDE 0.9% INJ ONE (22:30)
[2017-01-05] MEDS ORDERED: LEVSIN-SL SL ONE (22:30)
[2017-01-05] MEDS ORDERED: PHENERGAN IV ONE (22:30)
--- NOTE | 2017-01-05 22:34 | PROVIDER DOCUMENTATION ---
HPI-General Adult - General Chief Complaint: N/V/D Stated Complaint: N/V/D Time Seen by Provider: 01/05/17 21:25 Source: patient Allergies/Adverse Reactions: Patient Allergies Allergy/AdvReac Type Severity Reaction Status Date / Time Sulfa (Sulfonamide Allergy Severe ANAPHYLAXIS Verified 01/05/17 21:21 Antibiotics) [Sulfa(Sulfonamide Antibiotics)] Home Medications: Home Medication List Medication Instructions Recorded Confirmed Last Taken Type Albuterol Sulfate Inhaler 2 puff INH Q6H PRN PRN #1 inhaler 07/06/16 01/05/17 22:00 Rx [Ventolin Hfa] Promethazine [Phenergan] 25 mg PO Q12H PRN PRN 08/11/16 01/05/17 Unknown History LISINOpril [Prinivil] 5 mg PO DAILY #90 tablet 09/28/16 01/05/17 Unknown Rx Omeprazole [Prilosec] 40 mg PO DAILY@0700 #60 capsule 09/28/16 01/05/17 Unknown Rx Prazosin [Minipress] 2 mg PO QHS #60 capsule 09/28/16 01/05/17 Unknown Rx Trazodone [Desyrel] 100 mg PO QHS #30 tablet 09/28/16 01/05/17 Unknown Rx - History of Present Illness -Gen Adult Nature of Presenting Problems: Pt. is 51 yof that presents with c/o N/V/D and fever that began yesterday. Pt. reports she feels like she is freezing and has been vomiting dark looking emisis. Location of Pain/Injury: reports: abdomen. denies: none, head, face, mouth, neck, chest, upper extremity, hand(s), back, pelvis, genitalia, lower extremity , feet, upper body, lower body, generalized, other Pain Radiation: reports: no radiation. denies: arm(s), back, buttocks, chest, epigastric, feet, groin, jaw, flank (L), legs (lower), LLQ, LUQ, neck, periumbilical, flank (R), RLQ, RUQ, shoulder(s), scapula, scrotal, sternal notch , suprapubic, legs (upper), urethral, vaginal, other Quality of Pain: reports: cramping. denies: aching, burning, dull, fullness, indigestion, pressure, sharp, stabbing, tearing, throbbing, tightness Severity: reports: moderate. denies: mild, severe Onset/Duration: reports: gradual, 2 days ago Timing: reports: still present, constant. denies: improving, gone now, resolved prior to arrival, intermittent, changing over time, getting worse Context/Activities at Onset: reports: none. denies: recent emotional stress, recent physical stress, recent trauma history, possible bad food, cold exposure , out of country travel Modifying Factors: improves with: nothing Associated Symptoms: reports: diarrhea, nausea, vomiting. denies: denies symptoms, anxiety, arm pain, back/neck pain, chest pain, constipation, cough, diaphoresis, dizziness, EENT symptoms, fatigue, fever/chills, genitourinary problems, headaches, heartburn, joint pain, loss of appetite, malaise, muscle aches, sinus congestion/drainage, rash, seizure, shortness of breath, sensory/ motor loss, pain with inspiration, swelling/mass in abdomen, syncope, weakness, trouble walking, other Similar Symptoms Previously?: Yes Recently seen or treated by another doctor?: No Review of Systems - Adult - REVIEW OF SYSTEMS - ADULT Constitutional: reports: see HPI, chills, fever, fatique Eyes: reports: see HPI. denies: discharge, blurred vision, eye pain Ears, Nose, Mouth & Throat: reports: see HPI. denies: ear pain, hearing loss, sinus problem, mouth/dental pain, throat pain, throat swelling Cardiovascular: reports: see HPI. denies: chest pain, orthopnea, palpitations, syncope Respiratory: reports: see HPI. denies: cough, dyspnea on exertion, shortness of breath, wheezing Gastrointestinal: reports: see HPI, abdominal pain, hematemesis, diarrhea, nausea, vomiting. denies: constipation, frequent heartburn Genitourinary: reports: see HPI. denies: discharge, flank pain, hesitency, urgency Musculoskeletal: reports: see HPI. denies: bone pain, back pain, joint pain, muscle aches, neck pain Integumentary: reports: see HPI. denies: hives, itching, rash, skin thickening Neurological: reports: see HPI. denies: ataxia, headache/migraines, numbness, seizure, tremors Psychiatric: reports: see HPI. denies: anxiety, depression, emotional problems , insomnia, panic attacks, suicidal thoughts Past History - Adult - PAST MEDICAL HISTORY-ADULT Review of Records: reports: Old Records Reviewed, Nursing Assessment Review, Medications Reviewed, Social history reviewed & non-contributory. Major Childhood Illnesses: reports: denies history Cardiovascular: reports: HTN, MA Respiratory: reports: asthma, COPD Gastrointestinal: reports: GERD, inflammatory bowel disease, ulcer Obstetrical/Gynecological: reports: ovarian cysts, uterine/ovarian cancer ( ovarian) Genitourinary: reports: chronic UTI's Musculoskeletal: reports: chronic pain, orthopedic injury Neurological: reports: CVA (09/2014), stroke deficits (left arm), Seizures/ Epilepsy Psychiatric: reports: bipolar, depression, ptsd, schizophrenia - PRIOR SURGERIES/PROCEDURES Surgical/Procedure History: reports: cholecystectomy, BTL, , hernia repair, back/neck (back ), other (brain sx; cyst removed from left ovary) - IMMUNIZATION STATUS Childhood Immunizations: See Nurse Assessment Flu Vaccine: See Nurse Assessment - FAMILY HISTORY Family History: reviewed, not pertinent - SOCIAL HISTORY Smoking: cigarettes, greater than 1 pack/day Provider spent 3-5 mins advising pt. on dangers of tobacco.: Discussed the need to stop smoking. Physical Exam-General - PHYSICAL EXAM-ADULT Initial Vital Signs Reviewed: Yes - CONSTITUTIONAL General Appearance: alert, moderate distress, obese. negative: thin, anxious, lethargic, slow to respond, obtunded, combative - EYES Eyes: PERRL/EOMI, pink conjunctivae, sunken eyes. negative: conjuctival exudate , photophobia, scleral icterus, subconjunctival hemorrhage - HEAD, EARS, NOSE, MOUTH & THROAT HENMT: normocephalic/atraumatic, moist mucous membranes. negative: angioedema, frontal tenderness, maxillary tenderness - NECK Neck: non-tender, full range of motion, supple, normal inspection. negative: lymphadenopathy, trachial deviation, thyromegaly - RESPIRATORY Respiratory: lungs clear, normal breath sounds. negative: crackles, rales, rhonchi, stridor, wheezing - CARDIOVASCULAR Cardiovascular: regular rate, rhythm, no edema, no JVD, no murmur, tachycardia. negative: extra beats, friction rub, irregularly irregular - GASTROINTESTINAL (ABDOMEN) Abdominal Exam: soft, abnormal bowel sounds (hypoactive), distended, tenderness , other (Positive gastrocult). negative: guarding, rigid, rebound, hernia, mass - GENITOURINARY Rectal Exam: normal exam, normal rectal tone. negative: black stool, blood streaked stool Hemoccult Exam: heme negative stool - LYMPHATIC Lymphatic: no adenopathy. negative: axilla node tender, cervical node tenderness - MUSCULOSKELETAL Back Exam: normal inspection, no CVA tenderness, no vertebral tenderness. negative: ecchymosis, swelling, vertebral tenderness Extremity: normal range of motion, non-tender, normal inspection. negative: deformity, erythema, inflammation, swelling, tenderness Peripheral Pulses: radial (R): 2+, radial (L): 2+ - SKIN Integumentary: pallor. negative: cyanosis, diaphoresis, ecchymosis, erythema, jaundice, mottled, petechiae, purpura, rash, swelling, tenderness - NEUROLOGIC Neurologic: grossly normal, no motor/sensory deficits. negative: aphasia, facial droop, focal weakness, motor weakness, sensory deficit - PSYCHIATRIC Psych/Mental Status: normal mood/affect, normal thought content, normal thought process, oriented x 3. negative: anxious, paranoid, tearful Progress - PLAN OF CARE/RESULTS Progress/Plan/Lab Results: Vital Signs - 8 hr 01/05/17 21:15 Temperature 101.8 F H Pulse Rate 126 H Respiratory Rate 20 Blood Pressure 152/107 O2 Sat by Pulse Oximetry 94 L Laboratory Results - last 24 hr 01/05/17 01/05/17 01/05/17 21:20 21:20 21:42 WBC 23.33 H RBC 4.59 Hgb 14.2 Hct 39.9 MCV 86.9 MCH 30.9 MCHC 35.6 RDW Std Deviation 12.7 Plt Count 469 H MPV 10.5 H Immature Gran % (Auto) 0.3 Neut % (Auto) 89.3 H Lymph % (Auto) 3.8 L [place] % (Auto) 6.6 Eos % (Auto) 0.0 Baso % (Auto) 0.0 Immature Gran # (Auto) 0.06 H Neut # (Auto) 20.85 H Lymph # (Auto) 0.88 L [place] # (Auto) 1.53 H Eos # (Auto) 0.00 Baso # (Auto) 0.01 Specimen Type ARTERIAL Sample Site L RADIAL pH 7.42 pCO2 30 L pO2 75 HCO3 21.9 Base Excess -3.8 L Oxyhemoglobin 93.5 L ABG O2 Sat (Calculated) 18.8 ABG O2 Saturation 97.4 ABG Carboxyhemoglobin 2.60 H ABG Methemoglobin 1.4 Jordy Test YES A-a O2 Difference 37.0 Total Hemoglobin 14.3 Lactate 1.10 Blood Gas Modality ROOM AIR FiO2 % 21.0 Plasma Lactate 1.1 Orders Category Date Time Status Saline Loc NOW Care 01/05/17 21:26 Active FLAT/UPRIGHT ABD/1 VIEW CHEST [RAD] Stat Exams 01/05/17 21:27 Ordered ABG [RESP] Routine Lab 01/05/17 21:42 Completed AMYLASE [CHEM] Stat Lab 01/05/17 21:20 Received BLOOD CULTURE [BLDCUL] Stat Lab 01/05/17 21:27 Ordered CBC WITH ELECTRONIC DIFF [HEME] Stat Lab 01/05/17 21:20 Completed CK PROFILE [SP CHEM] Stat Lab 01/05/17 21:20 Received COMPREHENSIVE METABOLIC PANEL [CHEM] Stat Lab 01/05/17 21:20 Received LACTATE, PLASMA [CHEM] Stat Lab 01/05/17 21:20 Completed LIPASE [CHEM] Stat Lab 01/05/17 21:[address] W/POSS RFLX CULT [URINALYSIS] Stat Lab 01/05/17 21:27 Uncollected 0.9% Sodium Chloride Inj [Ns] 1,000 ml Med 01/05/17 21:27 Discontinued IV 999 mls/hr Acetaminophen [Tylenol] Med 01/05/17 21:27 Discontinued 1,000 mg PO NOW ONE Hyoscyamine Subl [Levsin-Sl] Med 01/05/17 22:30 Discontinued 0.125 mg SL NOW ONE Ondansetron [Zofran] Med 01/05/17 21:27 Discontinued 4 mg IV NOW ONE Promethazine [Phenergan] Med 01/05/17 22:30 Discontinued 12.5 mg IV NOW ONE Sodium Chloride 0.9% Med 01/05/17 22:30 Discontinued 10 ml INJ NOW ONE EKG [EKG] Stat Ther 01/05/17 21:26 Draft Discussed results and plan of care with patient. Patient agrees with plan and verbalizes understanding. Result Diagrams: 01/05/17 21:20 01/05/17 22:58 - XRAY 1 XRAY Study: Chest, Abdomen XRAY Interpretation: Distended air filled colon (Jordy) - CT/MRI 1 CT Study: Abdomen (Mild distention right aspect of the colon with air. Thickening of distal esophagus. This could represent esophagitis versus neoplasm. (Rinku), Pelvis CT Results: See note - CONSULTS/PCP/HOSPITALIST Notification #1 *Consult/PCP/Hospitalist*: Dr. Terrell Time Discussed: : Reason/Comments: Admission Consult Disposition: Admit Departure - Departure Date of Disposition Decision: 01/06/17 Time of Disposition Decision: 02:06 DIAGNOSIS: Hyponatremia Intractable nausea and vomiting Qualifiers: Vomiting type: unspecified Qualified Code(s): R11.2 - Nausea with vomiting, unspecified Abdominal pain Qualifiers: Abdominal location: generalized Qualified Code(s): R10.84 - Generalized abdominal pain GI bleed Qualifiers: GI bleed type/associated pathology: unspecified gastrointestinal hemorrhage type Qualified Code(s): K92.2 - Gastrointestinal hemorrhage, unspecified Disposition: ADMITTED INPATIENT 09 Certified Medical Emergency: Emergent Condition: Stable Referrals and Follow-Ups: Anson Hinson [Primary Care Provider] - - Critical Care Note This patient required my direct & personal management of CC.: No Attestation - Physician/ LISSY Attestation Patient care was provided by Advanced Practice Provider:: Yes Advanced Practice Provider:: Germania Spence (The physician is on site and available for consultation but did not have face to face contact with the patient. ) Advanced Practice Provider documentation review:: The Mid-level provider documentation, treatment plan and medical decision making was reviewed by the physician who agrees with all treatment and medical decision making by the MLP.
[2017-01-05] MEDS ORDERED: PHENERGAN IM ONE (22:39)
[2017-01-05 23:38] LABS: AGAP 17; ALBUMIN 4.4 g/dL (3.5-5.0); ALKALINE PHOSPHATASE 91 U/L (32-104); AMYLASE 55 U/L (20-200); BUN 18 mg/dL (8-22); CALCIUM 9.4 mg/dL (8.8-10.2); CHLORIDE 96 mmol/L (98-107); CK PROFILE 63 U/L (24-173); COSMO 262; GOT 10 U/L (10-30); GPT 8 U/L (10-36); LIPASE 29 U/L (13-60); POTASSIUM 4.1 mmol/L (3.5-5.1); SODIUM 129 mmol/L (136-145); TCO2 16 mmol/L (25-35); TOTAL PROTEIN 7.2 g/dL (6.3-8.3)
[2017-01-06 00:40] LABS: BILIRUBIN URINE NEGATIVE (NEGATIVE); BLOOD URINE NEGATIVE (NEGATIVE); CLARITY CLEAR (CLEAR); COLOR YELLOW; GLUCOSE URINE NEGATIVE (NEGATIVE); LEUKOCYTES URINE NEGATIVE (NEGATIVE); NITRITE URINE NEGATIVE (NEGATIVE); PH URINE 6.5; PROTEIN URINE NEGATIVE (NEGATIVE); UROBILINOGEN URINE NORMAL
[2017-01-06 00:48] LABS: URINE CULTURE PL NEEDED? YES; URINE EPITHELIAL CELLS <10 /HPF (<10); URINE RBC <10 /HPF (<10); URINE SOURCE CATH; URINE WBC <10 /HPF (<10)
[2017-01-06] MEDS ORDERED: PHENERGAN IM ONE (01:05)
[2017-01-06] MEDS ORDERED: ZOFRAN IV ONE (01:50)
[2017-01-06] MEDS ORDERED: SODIUM CHLORIDE 0.9% INJ ONE (01:51)
[2017-01-06] MEDS ORDERED: PROTONIX IV ONE (01:51)
[2017-01-06] MEDS ORDERED: NS 1,000 ML IV ONE ×2 (01:53→02:21)
[2017-01-06] MEDS ORDERED: OFIRMEV 1000 MG/ISOTONIC SOLN 1,000 MG/100 ML BOTTLE IV ONE (01:56)
[2017-01-06 02:00] LABS: OCCULT BLOOD 1 NEGATIVE (NEGATIVE)
[2017-01-06] MEDS ORDERED: REGLAN IV ONE (02:28)
--- NOTE | 2017-01-06 02:55 | ED EKG INTERP ---
This chart was entered by Seda Lyons Scribe, acting as scribe for Davey Altamirano MD. EKG Interpretation - EKG Time of EKG reading by physician:: 21:38 EKG Read and Signed by:: Davey Altamirano EKG Interpretation (*Must complete 3 of following elements*): Abnormal Rate: 123 Rhythm: Sinus tachycardia Comments: abnormal ECG This chart was documented by the indicated scribe, (Seda Lyons Scribe) and accurately reflects the services I performed and decisions made by me, Davey Altamirano MD, as attested by the provider's signature.
[2017-01-06] MEDS ORDERED: PROTONIX IV SCH (04:45)
[2017-01-06] MEDS ORDERED: NEXIUM IV SCH (05:00)
--- NOTE | 2017-01-06 05:25 | HISTORY AND PHYSICAL ---
PRIMARY CARE PHYSICIAN: Dr. Anson Hinson. CHIEF COMPLAINT: Throwing up blood. HISTORY OF PRESENTING ILLNESS: A 51-year-old female with a history of hypertension, asthma, and previous CVA who had presented to the emergency department with the complaint of having nausea, vomiting, diarrhea, and throwing up blood. Patient was initially evaluated in [facility] and also had a CAT scan which showed a thickened esophagus versus the possibility of neoplasm. Due to these symptoms and lack a subspecialist care there, the patient was transferred to [facility] for further evaluation and management. At the time of my examination, she had denied any headaches, chest pain, shortness of breath, or any weight changes but did complain of having some fever and throwing up blood, and not feeling well. PAST MEDICAL HISTORY: Includes hypertension, asthma, CVA, peripheral neuropathy. PAST SURGICAL HISTORY: Cholecystectomy, brain surgery. ALLERGIES: Sulfa drugs. CURRENT MEDICATIONS: Include as in the MAR. SOCIAL HISTORY: Twenty pack year history of smoking. Denies any history of alcohol use. Admits to crack cocaine use. FAMILY HISTORY: Positive for coronary artery disease in father. REVIEW OF SYSTEMS: Twelve point review of systems as listed in the HPI. Other systems negative. PHYSICAL EXAMINATION: GENERAL: Cooperative female. She is resting comfortably now. VITAL SIGNS: Temperature 101.5 degrees, pulse 100, respirations 20, blood pressure 138/116, saturating 97%. HEENT: Atraumatic, normocephalic. Extraocular movements intact. She has poor dentition. NECK: No masses. CHEST: Clear to auscultation. CARDIOVASCULAR: Regular rate and rhythm. ABDOMEN: Soft. Positive bowel sounds. EXTREMITIES: No edema. NEUROLOGIC: She is awake, alert, oriented x3. : No bladder distention. SKIN: Warm. LABORATORIES AND STUDIES: WBCs 23.33, hemoglobin 14.2, hematocrit 39.9, platelets 469,000. Sodium 129, potassium 4.1, chloride 96, CO2 16, BUN is 18, creatinine 0.8, glucose is 120. Urine shows 2+ bacteria. ASSESSMENT: A 51-year-old female with a history of hypertension, asthma, and previous stroke who had presented to the emergency department with a 2 day history of having nausea, vomiting, diarrhea, and throwing up blood. She was evaluated initially at [facility] and sent to [facility] due to the lack of subspecialist gastroenterology care. The patient will possibly require endoscopy. 1. Nausea, vomiting, diarrhea. 2. Abnormal CT showing esophagitis versus neoplasm. 3. Suspect upper gastrointestinal bleed. 4. Leukocytosis. 5. Hyponatremia. 6. Hypertension. PLAN: 1. We will admit patient to medical floor with telemetry. 2. Continue with supportive treatment. 3. We will keep patient NPO. We will give her antiemetics and pain control. 4. Continue patient on a PPI. 5. We will consult gastroenterology. 6. We will monitor hemoglobin and hematocrit. 7. We will check blood cultures and start patient on IV antibiotics. 8. We will monitor electrolytes. 9. Monitor blood pressure closely. 10. We will put patient on DVT prophylaxis with SCD. 11. We will continue to follow and reassess. cc: Jeremy Terrell MD
[2017-01-06] MEDS: ROCEPHIN 1 GM/NS 1 GM/50 ML IVPB IV SCH (05:39)
[2017-01-06] MEDS: ZOFRAN IV PRN ×5 (05:39→22:44)
[2017-01-06] MEDS: MORPHINE IV PRN ×4 (05:49→22:44)
--- NOTE | 2017-01-06 08:29 | Diag Imaging Result Doc PS360 ---
EXAM: FLAT/UPRIGHT ABD/1 VIEW CHEST - 01/05/2017 HISTORY: abd pain TECHNIQUE: Supine and upright abdomen one view chest COMPARISON: Portable chest of 09/19/2016 FINDINGS: There is mild gaseous distention of colon. There is no substantial gaseous small bowel distention identified. There is no free air identified. There are surgical clips at the right upper quadrant. Upright chest shows normal heart size. The lungs appear clear. There is no pleural effusion or pneumothorax identified. IMPRESSION: Mild gaseous distention of colon. No evidence of acute cardiopulmonary disease. Electronically signed by Froy Stratton 01/06/2017 8:27 AM
--- NOTE | 2017-01-06 09:45 | Diag Imaging Result Doc PS360 ---
EXAM: CT ABD/PELVIS W/ IV CONT ONLY - 01/06/2017 HISTORY: abd pain TECHNIQUE: With intravenous contrast only per request the referring provider. Dose reduction protocol. COMPARISON: 08/25/2016 FINDINGS: The visualized lung bases appear clear. There is apparent thickening of the joya of the distal esophagus. There is retained fluid in the stomach, but the gastric joya do not appear substantially thickened. There is no evidence of bowel obstruction. There is mild distention of the colon to the splenic flexure with gas. There is no discrete lesion identified to splenic flexure colon. There is no substantial: Wall thickening identified. There is no free air, free fluid, or abscess identified. There are no substantial abnormalities of the liver, spleen, adrenal glands, or pancreas identified. There are postsurgical changes of cholecystectomy. There is a tiny left renal cyst. There is mild renal cortical scarring. The bilateral kidneys otherwise enhance homogeneously. There is no hydronephrosis. There are nonspecific small retroperitoneal lymph nodes. There is a transitional lumbar sacral vertebra noted with pseudoarthrosis between the left ala of the transitional first sacral vertebra. IMPRESSION: Thickening of joya of distal esophagus. This is suspicious for esophagitis. Esophageal neoplasm cannot be entirely excluded, however. Correlation with clinical evaluation is recommended. Nonspecific mild gaseous distention of colon to the splenic flexure. No discrete colon obstructing lesion identified. No small bowel obstruction. No abscess. No free air. The forward air controller/air officer radiologist provided primary results at 2:12 AM on 01/06/2017. Electronically signed by Froy Stratton 01/06/2017 9:43 AM
[2017-01-06] MEDS ORDERED: VANCOMYCIN IV PER PHARMACY MISC SCH (13:15)
[2017-01-06] MEDS: NEXIUM IV SCH (14:48)
[2017-01-06] MEDS: VANCOMYCIN 2 GM in NS 500 ML IV SCH (14:50)
--- NOTE | 2017-01-06 16:15 | PROGRESS NOTE ---
DATE: 01/06/2017 SUBJECTIVE: The patient has no focal complaints. OBJECTIVE: Vital signs: Blood pressure 138/90, heart rate of 90, respiratory rate 22, temperature 99.3 degrees. Cardiovascular: Regular rate and rhythm. Pulmonary: Bilateral breath sounds. Clear to auscultation. GI: Soft, nontender, nondistended. Bowel sounds are positive. ASSESSMENT AND PLAN: Bacteremia, gram-negative rods. Gram positive cocci. We will add vancomycin. She is on Rocephin. I may switch that to Zosyn just to improve coverage; however, her CT scan did not show any acute abdominal pathology, so we will wait on identification and follow. Patient I know has a very extensive drug history. She requires a lot of pain medications out of proportion of the pathology, although at this time she does have a bacteremia associated with a gastrointestinal bleed, so we will continue to follow. cc: Wes Aquino MD
--- NOTE | 2017-01-06 20:41 | CONSULTATION ---
DATE OF CONSULTATION: 01/06/2017 REASON FOR CONSULTATION: Hematemesis. HISTORY OF PRESENT ILLNESS: This is a pleasant 51-year-old lady who came into the emergency department with nausea, vomiting and diarrhea after throwing up several times. She did have some hematemesis. She was transferred from [place] for further evaluation. She has no history of ulcer disease or chronic reflux. PAST MEDICAL HISTORY: 1. Hypertension. 2. Aspirin. 3. CVA. 4. Peripheral neuropathy. PAST SURGICAL HISTORY: Cholecystectomy. Brain surgery. ALLERGIES: Sulfa. CURRENT MEDICATIONS: In the MAR after admission. SOCIAL HISTORY: Twenty pack year history of smoking. Does not drink. Does not use drugs. She had used some crack cocaine in the past. FAMILY HISTORY: Positive for coronary artery disease. REVIEW OF SYSTEMS: Twelve point review is negative other than HPI. PHYSICAL EXAMINATION: General: A pleasant lady in no acute distress. Vital signs: Temperature of 100.5 degrees, pulse 100, respiratory rate 20, blood pressure 130/90. HEENT: No scleral icterus. Questionable conjunctival pallor. Neck: Supple. Trachea midline. Heart: Normal first and second heart sounds. Lungs: Clear. Abdomen: General mild tenderness. Bowel sounds present, hyperactive. Extremities: Unremarkable. Neurological: No neurological deficit. LABORATORY DATA: White count 23, hemoglobin and hematocrit normal, platelets normal. Sodium low at 129. So is chloride. Urinary bacteremia. IMPRESSION: 1. Nausea, vomiting and diarrhea. Most likely gastroenteritis. 2. Hematemesis with thickening of the distal esophagus in the CT scan. It is possible that she has Amira-Araujo tear. It is also possible that she has "hematogenic esophagitis". 3. Leukocytosis. 4. Hyponatremia. 5. Hypertension. RECOMMENDATIONS: 1. Continue gastrointestinal prophylaxis. She is not having any signs of active bleeding. 2. We will give her clear liquids. 3. We will do upper gastrointestinal endoscopy to evaluate the abnormality in the esophagus, but however, I think this is more of a result of her nausea and vomiting and possible esophagitis. Doubt neoplastic etiology. We will set her up for EGD in the morning. cc: Yogi Monterroso MD
[2017-01-07] MEDS: NEXIUM IV SCH ×2 (02:42→14:59)
[2017-01-07 05:31] LABS: MANUAL DIFF NEEDED? NO
[2017-01-07 05:40] LABS: BASO% 0.4 % (0.0-0.8); EOS# 0.31 X1000 (0.0-0.7); EOS% 2.2 % (0.0-10.0); HEMATOCRIT 34.6 % (37.0-47.0); HEMOGLOBIN 11.7 g/dL (12.0-16.0); IMM GRAN# 0.02 X1000 (0.0-0.04); IMM GRAN% 0.1 % (0.0-0.5); LYMPH# 2.37 X1000 (1.2-3.4); LYMPH% 17.2 % (20.5-51.1); MCHC 33.8 g/dL (33-37); MCV 91.8 FL (81-99); MONO% 8.7 % (1.7-9.3); MPV 9.9 FL (7.4-10.4); NEUT% 71.4 % (42.2-75.2); PLT 337 X1000 (130-400); RBC 3.77 XMIL (4.2-5.4)
[2017-01-07 05:53] LABS: AGAP 12; BUN 9 mg/dL (8-22); CALCIUM 8.8 mg/dL (8.8-10.2); CHLORIDE 107 mmol/L (98-107); COSMO 272; POTASSIUM 3.8 mmol/L (3.5-5.1); SODIUM 137 mmol/L (136-145); TCO2 18 mmol/L (25-35)
[2017-01-07] MEDS: ROCEPHIN 1 GM/NS 1 GM/50 ML IVPB IV SCH (06:41)
[2017-01-07] MEDS: ZOFRAN IV PRN ×4 (06:41→21:04)
[2017-01-07] MEDS: MORPHINE IV PRN ×4 (06:41→21:04)
[2017-01-07] MEDS ORDERED: DIPRIVAN 1% ONE ×3 (09:00→09:08)
[2017-01-07] MEDS ORDERED: FENTANYL ONE (09:00)
[2017-01-07] MEDS ORDERED: DUONEB (A & A) INH ONE (09:05)
[2017-01-07] MEDS ORDERED: XYLOCAINE-MPF 2% ONE (09:09)
[2017-01-07] MEDS: CARAFATE LIQUID PO SCH ×2 (14:58→21:04)
[2017-01-07] MEDS: VANCOMYCIN 2 GM in NS 500 ML IV SCH (14:59)
--- NOTE | 2017-01-07 15:36 | OPERATIVE NOTE ---
PROCEDURE DATE: 01/07/2017 REFERRING PHYSICIAN: Wes Aquino MD PRIMARY DOCTOR: Jair Singleton MD PROCEDURE PERFORMED: 1. Esophagogastroduodenoscopy 2. Flexible sigmoidoscopy up to 40 cm from the Anus. PREOPERATIVE DIAGNOSES: 1. Nausea, vomiting and hematemesis. 2. History of chronic smoking. 3. History of cocaine use. 4. Reflux disease. 5. Leukocytosis likely secondary to pneumonia and bronchitis, stress response. 6. Diarrhea. POSTOPERATIVE DIAGNOSES: 1. Esophagitis, severe, starting at the mid esophagus, extending up to the gastroesophageal junction, LA grade 4. 2. Z-line was at 34 cm. 3. Evidence of sliding hiatal hernia measuring about 5 cm. 4. Evidence of erythema and erosions in the body and antrum suggesting erosive gastritis. 5. Normal fundus, cardia, and incisura. 6. Duodenitis in the duodenal bulb. 7. Normal 2nd portion of duodenum. 8. Solid stool in the rectum and rectosigmoid, brown in color. 9. Internal hemorrhoids, inflamed on retroflexion. 10. No evidence of any colitis up to 40 cm from the anal verge. ESTIMATED BLOOD LOSS: None. COMPLICATIONS: None. ANESTHESIA: Monitored anesthesia care. SPECIMENS: None. OPERATION IN DETAIL: After informed from the patient of the risks, benefits, indications, alternatives of the procedure, the patient was prepared for EGD and flexible sigmoidoscopy. The risks of the procedure, including infection, bleeding, pain, trauma to the surrounding structures, perforation, , were explained to the patient, among others, and she acknowledges and agreed to proceed with the procedure. The patient was brought to the OR. She was turned to the left lateral position. A bite block was placed in patient's mouth. After adequate monitored anesthesia care, the upper endoscope was gently introduced through the oral vestibule and advanced all the way to the second portion of the duodenum. The esophagus showed evidence of erythema, friability, erosions, ulcerations diffuse in nature starting at mid esophagus and extending all the way to the GE junction confirming severe reflux esophagitis. Z-line was at 34 cm. There was evidence of 5 cm sliding hiatal hernia. There was evidence of mild erythema and erosions in the body and antrum suggesting mild erosive gastritis. Retroflexion in the stomach revealed normal fundus, cardia, incisura. There was evidence of some erythema and superficial erosions in the duodenal bulb suggesting erosive duodenitis. The second portion of duodenum appeared normal. The air was withdrawn. The scope withdrawn. The patient tolerated the procedure well and was monitored in the OR in stable condition. The patient was turned around. Rectal examination was performed, which was normal with no masses felt. The colonoscope was introduced and was traversed all the way to 40 cm from the anal verge. There was evidence of solid stool brown in color in rectum and rectosigmoid area. Retroflexion of rectum revealed inflamed internal hemorrhoids. There was no evidence of any colitis in the examined area. The air was aspirated and the scope withdrawn. The patient tolerated the procedure well and was monitored in the OR in stable condition. I discussed the findings with the patient on waking up and all questions were answered. RECOMMENDATIONS: 1. The patient will be on Prilosec twice daily for 3 months and then we can transition to Zantac twice daily. The patient counseled to quit smoking. 2. The patient will avoid cocaine use. 3. The patient will follow gastroesophageal reflux life changes. 4. The patient will be given Preparation-H twice daily rectally for 2 weeks. 5. She will increase fiber intake to 25-30 g/24 hours. 6. She will start on multivitamin 1 once daily for anemia. Further recommendations pending hospital course. cc: MD Wes Holbrook MD Jay Pohl, MD MTDD
--- NOTE | 2017-01-07 16:30 | PROGRESS NOTE ---
DATE: 01/07/2017 SUBJECTIVE: The patient just returned from endoscopy. She has no complaints. OBJECTIVE: Vital Signs: Temperature 98.7 degrees, blood pressure 126/82, heart rate 78, respirations 16, O2 saturations 94% on room air. General: This is a elderly female lying in bed in no acute distress. Head: Normocephalic, atraumatic. Heart: S1, S2. Normal. Regular rate and rhythm. Lungs: Clear to auscultation bilaterally. No wheezes, no rales. No rhonchi. Abdomen: Positive bowel sounds. Soft, nontender, nondistended. Extremities: No edema. No cyanosis. No calf tenderness. Neuro: The patient is alert and oriented x3. LABS: White blood cell count 13.7, hemoglobin 11, hematocrit 34, platelets 337,000. Sodium 137, potassium 3.8, chloride 107, CO2 18, BUN 9, creatinine 0.8, glucose 83. ASSESSMENT AND PLAN: 1. Gastrointestinal bleed. The patient just returned from endoscopy. Will continue on Nexium. Carafate has been started by the state's attorney. 2. Leukocytosis. Improved. Continue on Rocephin. 3. Bacteremia. The blood culture is growing gram-negative rods plus gram positive cocci. Final identification of the organism is pending. Continue with IV antibiotic therapy as ordered. 4. Gastrointestinal prophylaxis. Continue with SCDs. cc: Romana Pérez MD
[2017-01-07] MEDS: PREPARATION H OINT PR SCH ×2 (21:05→21:11)
[2017-01-08] MEDS: ZOFRAN IV PRN ×6 (01:11→22:02)
[2017-01-08] MEDS: MORPHINE IV PRN ×6 (01:11→22:01)
[2017-01-08] MEDS: NEXIUM IV SCH ×2 (01:11→15:06)
[2017-01-08] MEDS: CARAFATE LIQUID PO SCH ×4 (01:11→19:47)
[2017-01-08] MEDS: ROCEPHIN 1 GM/NS 1 GM/50 ML IVPB IV SCH (05:48)
[2017-01-08 06:22] LABS: MANUAL DIFF NEEDED? NO
[2017-01-08 06:28] LABS: BASO% 0.3 % (0.0-0.8); EOS# 0.27 X1000 (0.0-0.7); HEMATOCRIT 34.3 % (37.0-47.0); HEMOGLOBIN 11.5 g/dL (12.0-16.0); IMM GRAN# 0.02 X1000 (0.0-0.04); IMM GRAN% 0.2 % (0.0-0.5); LYMPH# 2.16 X1000 (1.2-3.4); LYMPH% 23.9 % (20.5-51.1); MCH 30.8 PG (27-31); MCHC 33.5 g/dL (33-37); MONO# 0.86 X1000 (0.11-0.59); MONO% 9.5 % (1.7-9.3); MPV 10.1 FL (7.4-10.4); NEUT% 63.1 % (42.2-75.2); PLT 302 X1000 (130-400); RBC 3.73 XMIL (4.2-5.4)
[2017-01-08 06:44] LABS: AGAP 16; BUN 8 mg/dL (8-22); CALCIUM 8.6 mg/dL (8.8-10.2); CHLORIDE 102 mmol/L (98-107); COSMO 268; POTASSIUM 3.9 mmol/L (3.5-5.1); SODIUM 135 mmol/L (136-145); TCO2 17 mmol/L (25-35)
[2017-01-08] MEDS: CENTRUM SILVER PO SCH (08:26)
[2017-01-08] MEDS: PREPARATION H OINT PR SCH ×2 (08:27→22:55)
[2017-01-08] MEDS: SODIUM CHLORIDE 0.9% INJ SCH (15:06)
[2017-01-08] MEDS: VANCOMYCIN 2 GM in NS 500 ML IV SCH (15:06)
--- NOTE | 2017-01-08 15:50 | Diag Imaging Result Doc PS360 ---
EXAM: CHEST-PORTABLE HISTORY: pneumonia TECHNIQUE: AP portable at 1538 COMMENT: The inspiration is less optimal than on 01/05/2017. Otherwise has been no significant change in the appearance of the chest. IMPRESSION: No acute disease. Electronically signed by Rodolfo Etienne 01/08/2017 3:48 PM
--- NOTE | 2017-01-08 16:27 | CONSULTATION ---
DATE OF CONSULTATION: 01/08/2017 CONCLUSION: The patient has 2 blood cultures. One grew Staph hemolyticus and Moraxella. The other 1 grew Staph hemolyticus. I think both isolates are pathogens and not contaminants. Exactly where the bacteremia originated from is somewhat uncertain to me. The patient has horrible oral hygiene but I do not think that the bacteremia arose from her mouth. I have ordered a chest x-ray. I think she does have pneumonia that could be the source of the bacteremia at least for the Moraxella would be to me somewhat unusual for the Staph hemolyticus to be originating from pneumonia. Her urine did not grow any organisms and thus it is not the origin plus those 2 or organisms be usual coming from the urinary tract. RECOMMENDATIONS: I agree with decision to treat the patient with the combination of vancomycin and Rocephin. I would suggest treating with both of those antibiotics for a total of 14 days. I have ordered a portable chest x-ray. DISCUSSION: The patient was somewhat of a vague historian. She has had a stroke in it may be difficult for her to express herself. She said that she had been having vomiting and diarrhea for 2 days and pain in the middle part of her abdomen. She has undergone esophagogastroduodenoscopy which found esophagitis, gastritis and duodenitis. CT scan of the abdomen and pelvis showed esophagitis. Her CBC shows a white count of 9020, hemoglobin 11.5, and platelet count 302,000. Creatinine is 0.8. GFR is greater than 60. Patient also tells me in the past 2 days she has been having chest pain on the right side of the chest. It is not related to breathing and the patient is pretty much bedbound so she is not exerting herself much at all. Present illness: The patient tells me that she has had vomiting and diarrhea for the past 2 days associated with umbilical pain. PAST MEDICAL HISTORY/REVIEW OF SYSTEMS: Eyes and ears: She denies difficulty hearing or seeing. Neck: No stiffness. Respiratory: She is not complaining of shortness of breath or coughing. GI: See present illness. Genitourinary: The patient tells me she normally passes her own urine. Currently she has a Sesay catheter in place. Neurologic: Patient has left-sided weakness due to a stroke. Endocrine: Patient denied having diabetes or thyroid disease. Bones, joints, muscles: She is not complaining of any joint pain or myalgias. Genitourinary: She did not complain of dysuria and said she is able to pass her urine. I should mention that her urine culture here is negative. Integument: No rashes. The remainder of the patient's review of systems was completed and was negative. MANAGER EMERGENCY HISTORY: She is a 2, para 2, AB 0. She has had a tubal ligation. She states she had ovarian cancer which was treated by removal of the ovary. PREVIOUS HOSPITALIZATIONS AND OPERATIONS: She has had labor and deliveries, tubal ligation and removal of an ovary that had cancer in it. The patient has also had a cholecystectomy and admissions for stroke and myocardial infarction. MEDICAL DISEASES: Positive for ovarian cancer, hypertension, myocardial infarction, stroke and neuropathy especially causing pain in her feet, stroke. Gastroesophageal reflux disease. INFECTIOUS DISEASE HISTORY: Positive for pneumonia and UTI. FAMILY HISTORY: Positive for diabetes mellitus, hypertension. SOCIAL HISTORY: [place] She smoke cigarettes. She does crack cocaine. She denies drinking alcoholic beverages. She does not have a pet. She lives alone. She is disabled and she is . She said she gets 1 meal through [employer] and her boyfriend helps take care of her. PHYSICAL EXAMINATION: Vital Signs: Temperature is 98.5 degrees, pulse 71, respirations 16, blood pressure 120/85. Patient weighs 175. General: This is a chronically ill-appearing middle- aged female. She is in no acute distress. Head, eyes, ears, nose, and throat: She can hear my spoken words and see near objects. The patient's oral hygiene was horrible. She was missing many teeth and most the ones that remained looked necrotic. Neck: No meningismus. Thorax: No increased AP diameter to the chest. Lungs: Clear to auscultation. Cardiovascular: Heart rate was regular. Peripheral pulses were diminished. There was edema of the legs. Abdomen: Soft and nontender. Neurologic: Patient is awake. She has a left-sided hemiparesis. Integument: No rash noted. HOME MEDICATIONS: Include albuterol, lisinopril, trazodone, Phenergan, Minipress and Prilosec. cc: Ortiz Westfall MD
[2017-01-08] MEDS ORDERED: NS 500 ML ONE (17:47)
[2017-01-09] MEDS: NEXIUM IV SCH ×2 (02:47→14:52)
[2017-01-09] MEDS: CARAFATE LIQUID PO SCH ×4 (02:48→20:07)
[2017-01-09] MEDS: ZOFRAN IV PRN ×6 (02:48→22:44)
[2017-01-09] MEDS: MORPHINE IV PRN ×6 (02:48→22:44)
--- NOTE | 2017-01-09 03:39 | PROGRESS NOTE ---
DATE: 01/08/2017 SUBJECTIVE: The patient is resting comfortably in bed. No acute events noted overnight. The patient was noted to have positive blood cultures. OBJECTIVE: Vital signs: Temperature 98.5 degrees, blood pressure 120/85, heart rate 71, respirations 16, O2 saturations 97% on room air. General: This is an overweight female lying in bed in no acute distress. Head: Normocephalic, atraumatic. Heart: S1, S2. Normal. Regular rate and rhythm. Lungs: Clear to auscultation bilaterally. Abdomen: Positive bowel sounds. Soft, nontender, nondistended. Extremities: No edema. No cyanosis. No calf tenderness. Neurologic: The patient is alert and oriented x3. LABS: White blood cell count 9, hemoglobin 11, hematocrit 34, platelets 302,000. Sodium 135, potassium 3.9, chloride 102, CO2 17, BUN 8, creatinine 0.8, glucose 83. ASSESSMENT AND PLAN: 1. Severe esophagitis, duodenitis and gastritis. Continue on Carafate and Nexium. Will advance the patient's diet. 2. Bacteremia secondary to Moraxella and Staphylococcus hemolyticus. Will consult Dr. Westfall for further IV antibiotic recommendations. 3. Deep vein thrombosis prophylaxis. Continue with SCDs. cc: Romana Pérez MD
[2017-01-09] MEDS: ROCEPHIN 1 GM/NS 1 GM/50 ML IVPB IV SCH (05:19)
[2017-01-09 06:20] LABS: MANUAL DIFF NEEDED? NO
[2017-01-09 06:21] LABS: BASO% 0.6 % (0.0-0.8); EOS# 0.22 X1000 (0.0-0.7); EOS% 3.1 % (0.0-10.0); HEMATOCRIT 32.3 % (37.0-47.0); HEMOGLOBIN 11.1 g/dL (12.0-16.0); LYMPH# 2.11 X1000 (1.2-3.4); LYMPH% 29.3 % (20.5-51.1); MCH 31.3 PG (27-31); MCHC 34.4 g/dL (33-37); MONO# 0.67 X1000 (0.11-0.59); MONO% 9.3 % (1.7-9.3); MPV 9.9 FL (7.4-10.4); NEUT% 57.7 % (42.2-75.2); PLT 303 X1000 (130-400); RBC 3.55 XMIL (4.2-5.4)
[2017-01-09 06:37] LABS: AGAP 11; BUN 6 mg/dL (8-22); CALCIUM 8.4 mg/dL (8.8-10.2); CHLORIDE 103 mmol/L (98-107); COSMO 264; POTASSIUM 3.6 mmol/L (3.5-5.1); SODIUM 133 mmol/L (136-145); TCO2 19 mmol/L (25-35)
[2017-01-09] MEDS: CENTRUM SILVER PO SCH (08:16)
[2017-01-09] MEDS: PREPARATION H OINT PR SCH ×2 (08:16→20:10)
--- NOTE | 2017-01-09 09:05 | PROGRESS NOTE ---
DATE: 01/09/2017 PRESENT ILLNESS: The patient has a Staphylococcus hemolyticus and Moraxella bacteremia, the origin of which I am not certain. MEDICATIONS: Patient is receiving a combination of vancomycin and Rocephin. PHYSICAL EXAMINATION: Vital Signs: Temperature is 98.4 degrees, pulse 72, respirations 19, blood pressure 109/73. Neurologic: The patient is lethargic now. She had just gotten Demerol for pain. Lungs: Clear to auscultation. Cardiovascular: Regular heart rate. Abdomen: Soft and nontender. LAB AND X-RAY: CBC today shows a white count of 7190, hemoglobin 11.1, and platelet count 303,000. Creatinine is 0.7. GFR is greater than 60. The blood cultures are positive for Staphylococcus hemolyticus and Moraxella. Chest x-ray shows no acute disease. ASSESSMENT AND PLAN: Patient has a bacteremia. My plan is to continue vancomycin and Rocephin for a total of 14 days. Patient's comorbidities include she has had ovarian cancer. She has gastroesophageal reflux disease and she has had a myocardial infarction and a stroke. cc: Ortiz Westfall MD
[2017-01-09] MEDS: SODIUM CHLORIDE 0.9% INJ SCH (14:52)
--- NOTE | 2017-01-09 15:16 | PROGRESS NOTE ---
DATE: 01/09/2017 SUBJECTIVE: The patient is currently resting in bed. She denies any fevers, rigors or chills. Denies any nausea or vomiting. She has not had a bowel movement today. She was slightly constipated when we did the flexible sigmoidoscopy. OBJECTIVE: Vital Signs: Temperature 98.4 degrees, pulse of 72, respiratory rate 19, blood pressure 109/72, saturating 98% on room air. Body weight of 175 pounds 4.8 ounces, BMI of 29.2 kg. General: moderately built and nourished. Lying in bed, in no acute distress. HEENT: Mild pallor. No icterus. Neck: Supple. Abdomen: Mildly protuberant, soft, nontender. Bowel sounds present. Extremities: No cyanosis or clubbing. Neurologic: She is alert and awake. Answers all questions. LABS: Hemoglobin 11.1 and hematocrit 32.3, white count of 7.1, platelet count of 303,000. MCV of 91. Sodium 130, potassium 3.6 chloride 103, bicarb 19, anion gap of 11, BUN of 6, creatinine 0.7, glucose of 90, calcium 8.4. IMPRESSION AND PLAN: 1. Bacteremia with Staphylococcus hemolyticus Moraxella on certain origin, being treated with oral vancomycin and Rocephin for [address] Westfall. 2. Severe reflux esophagitis on esophagogastroduodenoscopy. She will continue on proton pump inhibitors twice daily and on discharge, she will continue on PPIs once daily for 3 months and then wean down to Zantac twice daily. The patient was also counseled to quit smoking. Quit use of cocaine completely. 3. Constipation. Patient will benefit from bowel regimen. 4. Gastrointestinal prophylaxis and bowel regimen. Continue as above. 5. Anemia. We will start on Iron C b.i.d. 6. Further orders pending above. cc: MD Romana Holbrook MD Leroy F. Harris, MD Joel Alonzo Powell, Jr, MD MTDD
[2017-01-09] MEDS: VANCOMYCIN 2,000 MG in NS 500 ML IV SCH (17:03)
--- NOTE | 2017-01-09 17:28 | PROGRESS NOTE ---
DATE: 01/09/2017 SUBJECTIVE: The patient complains of abdominal pain and states that she has felt nauseous and did not feel like eating. The patient has not had a bowel movement yet. OBJECTIVE: Vital Signs: Temperature 98.5 degrees, blood pressure 135/85, heart rate 65, respirations 15, O2 saturations 98% on room air. General: This is an elderly female, lying in bed, in no acute distress. Head: Normocephalic, atraumatic. Heart: S1, S2. Normal. Regular rate and rhythm. Lungs: Clear to auscultation bilaterally. No crackles. No rales. Abdomen: Positive bowel sounds. Soft, nontender, nondistended. Extremities: No edema. No cyanosis. No calf tenderness. Neurologic: The patient is alert and oriented x3. LABS: Reviewed. ASSESSMENT AND PLAN: 1. Bacteremia secondary to Moraxella and Staphylococcus hemolyticus. Continue on the current IV antibiotic regimen as directed by Dr. Westfall. 2. Severe esophagitis, duodenitis and gastritis. Continue on Nexium and Carafate. 3. Constipation. Will start the patient on MiraLAX. 4. Neuropathy. Continue on Neurontin. 5. Continue with physical therapy. cc: Romana Pérez MD
[2017-01-09] MEDS: ICAR-C PO SCH (20:07)
[2017-01-09] MEDS: MIRALAX PO SCH (20:07)
[2017-01-10] MEDS: CARAFATE LIQUID PO SCH ×4 (01:19→21:08)
[2017-01-10] MEDS: ZOFRAN IV PRN ×5 (05:07→23:31)
[2017-01-10] MEDS: ROCEPHIN 1 GM/NS 1 GM/50 ML IVPB IV SCH (05:07)
[2017-01-10] MEDS: MORPHINE IV PRN ×3 (05:07→15:29)
[2017-01-10] MEDS: NEXIUM IV SCH ×2 (05:08→18:32)
[2017-01-10 06:30] LABS: MANUAL DIFF NEEDED? NO
[2017-01-10 06:37] LABS: BASO% 0.4 % (0.0-0.8); EOS% 3.6 % (0.0-10.0); HEMATOCRIT 34.5 % (37.0-47.0); HEMOGLOBIN 11.7 g/dL (12.0-16.0); LYMPH# 1.56 X1000 (1.2-3.4); LYMPH% 27.8 % (20.5-51.1); MCHC 33.9 g/dL (33-37); MCV 91.3 FL (81-99); MONO# 0.63 X1000 (0.11-0.59); MONO% 11.2 % (1.7-9.3); MPV 10.6 FL (7.4-10.4); PLT 309 X1000 (130-400); RBC 3.78 XMIL (4.2-5.4)
[2017-01-10 06:51] LABS: AGAP 15; BUN 5 mg/dL (8-22); CHLORIDE 104 mmol/L (98-107); COSMO 273; SODIUM 138 mmol/L (136-145); TCO2 19 mmol/L (25-35)
[2017-01-10] MEDS: CENTRUM SILVER PO SCH (08:58)
[2017-01-10] MEDS: NEURONTIN PO SCH (08:59)
[2017-01-10] MEDS: MIRALAX PO SCH ×3 (08:59→21:07)
[2017-01-10] MEDS: PREPARATION H OINT PR SCH ×2 (08:59→21:09)
[2017-01-10] MEDS: ICAR-C PO SCH ×2 (08:59→21:08)
[2017-01-10] MEDS: LACTULOSE PO SCH ×2 (11:24→21:07)
[2017-01-10] MEDS: VANCOMYCIN 2,000 MG in NS 500 ML IV SCH (11:24)
--- NOTE | 2017-01-10 12:01 | PROGRESS NOTE ---
DATE: 01/10/2017 SUBJECTIVE: Patient is currently resting in bed. She has not had a bowel movement in the last 2 day. She denies any nausea, vomiting, or vomiting blood. She denies any fever , rigors, or chills. OBJECTIVE: Vital signs: Temperature 98.4 degrees, pulse rate of 85, respiratory rate, blood pressure 105/70, saturating 98% on room air. General Appearance: Moderately built, moderately nourished, lying in bed, in no distress. HEENT: Mild pallor. No icterus. Neck: Supple. Abdomen: Mildly protuberant, soft, nontender. Bowel sounds present. Extremities: No cyanosis, clubbing. Neurologic: She is awake and alert. Answers questions. LABS: Hemoglobin and hematocrit 11.7 and 34.5, white count of 5.6, platelet count of 309,000. Sodium 138, potassium 4, chloride 104, bicarb 9, anion gap 15, BUN of 5, creatinine 0.7, glucose of 97, calcium 9. IMPRESSION AND PLAN: 1. Severe esophagitis, duodenitis, and gastritis. Continue on Nexium and Carafate. 2. Constipation. Started her on MiraLAX and she still has not had a bowel movement so far. So, we will give her an extra dose of MiraLAX. 3. Bacteremia secondary to Moraxella and Staphylococcus hemolyticus. Continue antibiotic regimen per Dr. Westfall. 4. Gastrointestinal prophylaxis with PPIs. 5. Bowel regimen to be continued. 6. Patient was counseled to quit tobacco and quit cocaine completely. 7. Further recommendations per Dr. Pérez. cc: Joni Garza MD [facility]
--- NOTE | 2017-01-10 13:34 | PROGRESS NOTE ---
DATE: 01/10/2017 PRESENT ILLNESS: The patient has a Staph hemolyticus and Moraxella bacteremia, the origin of which I am not certain. MEDICATIONS: The patient has been receiving vancomycin and Rocephin for this now for 4 days. PHYSICAL EXAMINATION: Vital Signs: Temperature is 98.4 degrees, pulse 85, respirations 20, blood pressure 105/75. General: This is a chronically ill-appearing middle-aged female. She complains of pain in her feet due to neuropathy. Lungs: Clear to auscultation. Cardiovascular: Regular heart rate. Abdomen: Soft and nontender. Extremities: Both feet are not erythematous, swollen or tender. LAB AND X-RAY: CBC shows a white count of 5620, hemoglobin 11.7, and platelet count 309,000. Creatinine is 0.7. GFR is greater than 60. There is no new radiographic study. ASSESSMENT AND PLAN: The patient has the above-mentioned Moraxella and Staphylococcus bacteremia. I plan to treat with Rocephin and vancomycin for 10 more days to complete a 14 day treatment course. COMORBIDITIES: Include ovarian cancer, gastroesophageal reflux disease and peripheral neuropathy. cc: Ortiz Westfall MD
[2017-01-10] MEDS: SODIUM CHLORIDE 0.9% INJ SCH (18:32)
[2017-01-10] MEDS: ROCEPHIN 2 GM/NS 2 GM/50 ML IVPB IV SCH (18:32)
--- NOTE | 2017-01-10 18:39 | Diag Imaging Result Doc PS360 ---
EXAM: ABDOMEN FLAT/UPRIGHT - 01/10/2017 HISTORY: constipation TECHNIQUE: Portable supine and upright abdomen 6:21 PM COMPARISON: 01/05/2017 FINDINGS: There is mild gaseous distention of colon. This appears stable to mildly decreased compared to the prior exam. There is no indication of excessive retained fecal debris in the colon. There is no substantial gaseous small bowel distention identified. There is no free air identified. There are surgical clips at the right upper quadrant. There is possible medication residue in the right colon. IMPRESSION: Mild gaseous distention of colon. No indication of excessive retained fecal debris in the colon. Electronically signed by Froy Stratton 01/10/2017 6:37 PM
[2017-01-10] MEDS: NORCO-5 PO PRN ×2 (19:15→23:31)
[2017-01-10] MEDS: DULCOLAX PR SCH (21:07)
[2017-01-11] MEDS: CARAFATE LIQUID PO SCH ×4 (01:42→20:40)
[2017-01-11] MEDS: VANCOMYCIN 2,000 MG in NS 500 ML IV SCH ×2 (03:39→22:55)
[2017-01-11] MEDS: NORCO-5 PO PRN ×4 (03:39→17:35)
[2017-01-11] MEDS: ZOFRAN IV PRN ×5 (03:39→21:58)
[2017-01-11] MEDS: SODIUM CHLORIDE 0.9% INJ SCH ×2 (08:48→20:41)
[2017-01-11] MEDS: NEURONTIN PO SCH (08:48)
[2017-01-11] MEDS: NEXIUM IV SCH ×2 (08:48→20:40)
[2017-01-11] MEDS: LACTULOSE PO SCH ×2 (08:48→20:41)
[2017-01-11] MEDS: CENTRUM SILVER PO SCH (08:48)
[2017-01-11] MEDS: ICAR-C PO SCH ×2 (08:49→20:41)
[2017-01-11] MEDS: MIRALAX PO SCH ×2 (08:50→20:41)
[2017-01-11 08:56] LABS: MANUAL DIFF NEEDED? NO
--- NOTE | 2017-01-11 08:58 | PROGRESS NOTE ---
DATE: 01/10/2017 SUBJECTIVE: The patient is resting comfortably in bed. She complains of back pain. She ate all of her breakfast without any difficulty. She has not had a bowel movement yet. OBJECTIVE: Vital Signs: Temperature 98.6 degrees, blood pressure 114/87, heart rate 72, respirations 16, O2 saturations 97% on room air. General: This is an elderly female, lying in bed, in no acute distress. Head: Normocephalic, atraumatic. Heart: S1, S2 normal. Regular rate and rhythm. Lungs: Clear to auscultation bilaterally. No wheezing. No rales. No rhonchi. Abdomen: Positive bowel sounds. Soft, nontender, nondistended. Extremities: No edema. No cyanosis. No calf tenderness. Neurologic: The patient is alert and oriented x3. Labs: White blood cell count 5.6, hemoglobin 11, hematocrit 34, platelets 309,000. Sodium 138, potassium 4, chloride 104, CO2 19, BUN 5, creatinine 0.7, glucose 97. ASSESSMENT AND PLAN: 1. Severe esophagitis, duodenitis, and gastritis. Continue on Nexium and Carafate. 2. Bacteremia secondary to Moraxella and Staphylococcus hemolyticus. Continue on the current intravenous antibiotic regimen as directed by Dr. Westfall. Today is day 4 of 14 days. 3. Constipation. We will start the patient on scheduled laxative therapy. 4. Chronic back pain. We will continue on as needed pain medication. 5. Deep vein thrombosis prophylaxis. Continue with sequential compression devices. 6. Disposition. The patient has requested to be placed in inpatient rehab. caseworker protective services has been consulted to assist with this. cc: Romana Pérez MD
[2017-01-11 09:02] LABS: BASO% 0.9 % (0.0-0.8); EOS# 0.16 X1000 (0.0-0.7); EOS% 2.9 % (0.0-10.0); HEMATOCRIT 34.6 % (37.0-47.0); HEMOGLOBIN 11.9 g/dL (12.0-16.0); LYMPH# 1.79 X1000 (1.2-3.4); LYMPH% 32.5 % (20.5-51.1); MCH 31.2 PG (27-31); MCHC 34.4 g/dL (33-37); MCV 90.6 FL (81-99); MONO# 0.47 X1000 (0.11-0.59); MONO% 8.5 % (1.7-9.3); MPV 10.2 FL (7.4-10.4); NEUT% 55.2 % (42.2-75.2); PLT 323 X1000 (130-400); RBC 3.82 XMIL (4.2-5.4)
[2017-01-11 09:17] LABS: AGAP 14; BUN 5 mg/dL (8-22); CALCIUM 8.5 mg/dL (8.8-10.2); CHLORIDE 104 mmol/L (98-107); COSMO 271; POTASSIUM 3.7 mmol/L (3.5-5.1); SODIUM 137 mmol/L (136-145); TCO2 19 mmol/L (25-35)
[2017-01-11] MEDS: PREPARATION H OINT PR SCH ×2 (11:48→20:42)
--- NOTE | 2017-01-11 12:45 | PROGRESS NOTE ---
DATE: 01/11/2017 PRESENT ILLNESS: The patient has a Staphylococcus hemolyticus and Moraxella bacteremia. The origin of the bacteremia is uncertain to me. MEDICATIONS: This is day 5 of treatment with a combination of vancomycin and Rocephin. PHYSICAL EXAMINATION: Vital Signs: Temperature is 98.2 degrees, pulse 58, respirations 20, blood pressure 129/88. General: This is a chronically ill-appearing, middle-aged female. She is in no acute distress. Lungs: Clear to auscultation. Cardiovascular: Heart rate is regular. Abdomen: Soft and nontender. Extremities: Both legs are edematous, but not erythematous. LABORATORY AND X-RAY STUDIES: Abdominal x-ray shows gaseous distention of the colon. CBC shows a white count of 5620, hemoglobin 11.7, and platelet count 309,000. Creatinine is 0.7. GFR is greater than 60. ASSESSMENT AND PLAN: Patient has bacteremia. I plan to treat with Rocephin and vancomycin for 9 more days to complete a 14-day treatment course. COMORBIDITIES: Ovarian cancer, peripheral neuropathy, and gastroesophageal reflux disease. cc: Ortiz Westfall MD
[2017-01-11] MEDS: ROCEPHIN 2 GM/NS 2 GM/50 ML IVPB IV SCH (17:37)
--- NOTE | 2017-01-11 17:40 | PROGRESS NOTE ---
DATE: 01/11/2017 SUBJECTIVE: The patient is resting comfortably in bed. She has no complaints. OBJECTIVE: Vital Signs: Temperature 98.2 degrees, blood pressure 129/88, heart rate 58, respirations 20, O2 saturations 96% on 2 L nasal cannula. General: This is a middle-aged female, lying in bed, in no acute distress. Head: Normocephalic, atraumatic. Heart: S1, S2. Normal. Regular rate and rhythm. Lungs: Clear to auscultation bilaterally. No wheezing. No rales. No rhonchi. Abdomen: Positive bowel sounds. Soft, nontender, nondistended. Extremities: No edema. No cyanosis. No calf tenderness. Neurologic: The patient is alert and oriented x3. LABS: Reviewed. ASSESSMENT AND PLAN: 1. Bacteremia secondary to Moraxella and Staphylococcus haemolyticus. Continue on Rocephin and vancomycin, this is day 5 of therapy. The patient will need a total of 14 days. 2. Esophagitis, duodenitis and gastritis. Continue on Nexium and Carafate. 3. Chronic back pain. Continue on p.r.n. [place]. 4. Deep vein thrombosis prophylaxis. Continue with sequential compression devices. cc: Romana Pérez MD [facility]
[2017-01-11] MEDS: NORCO-7.5 PO PRN ×2 (18:57→23:01)
[2017-01-11] MEDS: DULCOLAX PR SCH (20:41)
[2017-01-12] MEDS: CARAFATE LIQUID PO SCH ×4 (01:54→20:30)
[2017-01-12 06:00] LABS: INR 0.96; PROTIME 10.1 Seconds (9.2-11.7); PTT 22.4 Seconds (22.0-36.0)
[2017-01-12 06:16] LABS: AGAP 16; BUN 5 mg/dL (8-22); CALCIUM 8.9 mg/dL (8.8-10.2); CHLORIDE 101 mmol/L (98-107); COSMO 271; POTASSIUM 3.5 mmol/L (3.5-5.1); SODIUM 137 mmol/L (136-145); TCO2 20 mmol/L (25-35)
[2017-01-12] MEDS: ZOFRAN IV PRN ×4 (07:07→20:33)
[2017-01-12] MEDS: NORCO-7.5 PO PRN ×4 (07:07→20:32)
[2017-01-12] MEDS ORDERED: NS 250 ML ONE (11:18)
[2017-01-12] MEDS: NEURONTIN PO SCH (11:54)
[2017-01-12] MEDS: CENTRUM SILVER PO SCH (11:54)
[2017-01-12] MEDS: NEXIUM IV SCH ×2 (11:54→20:32)
[2017-01-12] MEDS: ICAR-C PO SCH ×2 (11:54→20:32)
[2017-01-12] MEDS: LACTULOSE PO SCH (11:55)
[2017-01-12] MEDS: PREPARATION H OINT PR SCH ×2 (11:55→21:22)
[2017-01-12] MEDS: MIRALAX PO SCH ×2 (11:55→21:22)
[2017-01-12] MEDS: ROCEPHIN 2 GM/NS 2 GM/50 ML IVPB IV SCH (17:15)
[2017-01-12] MEDS ORDERED: NS 500 ML ONE (17:26)
[2017-01-12] MEDS: VANCOMYCIN 2,000 MG in NS 500 ML IV SCH (18:17)
[2017-01-12] MEDS: DULCOLAX PR SCH (21:22)
[2017-01-13] MEDS ORDERED: CALMOSEPTINE OINTMENT TOP PRN (01:59)
[2017-01-13] MEDS: CARAFATE LIQUID PO SCH ×4 (02:23→22:00)
[2017-01-13] MEDS: ZOFRAN IV PRN ×4 (04:06→23:19)
[2017-01-13] MEDS: NORCO-7.5 PO PRN ×5 (04:06→23:19)
[2017-01-13] MEDS ORDERED: PNEUMOVAX 23 IM ONE (04:42)
[2017-01-13 06:30] LABS: AGAP 12; BUN 6 mg/dL (8-22); CHLORIDE 106 mmol/L (98-107); COSMO 277; POTASSIUM 3.7 mmol/L (3.5-5.1); SODIUM 140 mmol/L (136-145); TCO2 22 mmol/L (25-35)
--- NOTE | 2017-01-13 09:50 | PROGRESS NOTE ---
DATE: 01/08/2017 SUBJECTIVE: Resting comfortably. No specific complaints. OBJECTIVE: Vital Signs: Temp 98.5 degrees, blood pressure 120/80, heart rate 71, respirations 16, O2 saturation is 97% on room air. General: Pleasant lady, laying in bed, in no acute distress. HEENT: No scleral icterus or conjunctival pallor. Neck: Supple. Heart: Normal first and second heart sounds. Lungs: Clear. Abdomen: Soft, nontender, nondistended. Bowel sounds present and normal. Extremities: No cyanosis or edema. Neurologic: Alert and oriented. LABS: White count is 9,000, hematocrit 34. Creatinine normal. IMPRESSIONS AND PLAN: 1. Severe esophagitis, duodenitis, and gastritis. Patient is on a combination of Nexium and Carafate. We will advance the diet. 2. Bacteremia, Moraxella and staphylococcus haemolyticus. Dr. Westfall is consulted. 3. Deep vein thrombosis prophylaxis. 4. Anemia. Will watch this closely. cc: Yogi Monterroso MD
--- NOTE | 2017-01-13 09:51 | PROGRESS NOTE ---
DATE: 01/11/2017 SUBJECTIVE: Patient has no specific complaints. Tolerating the diet. PHYSICAL EXAMINATION: Vital signs: Temp 98 degrees, pulse 58, respiratory rate 20, blood pressure 120/80. General: Obese, in no acute distress. HEENT: Conjunctivae pallor. No scleral icterus. Neck: Supple. Trachea midline. Heart: Normal 1st and 2nd heart sounds. Lungs: Clear. Abdomen: No masses. No organomegaly. No ascites. Bowel sounds present and normal. Extremities: No cyanosis, clubbing. LABS: Patient labs remain unchanged and normal. IMPRESSION AND PLAN: 1. The patient has bacteremia. On Rocephin and vancomycin. It is not clear of the source for her Staph bacteremia. 2. Anemia. No signs of . 3. Gaseous distention of the abdomen with no signs of obstruction. Advance the diet. Will give her suppositories if needed. 4. Gastrointestinal prophylaxis. On both Nexium and Carafate. Continue for now. I think patient is stable GI anand. We will follow as needed. -0 cc: Yogi Monterroso MD
[2017-01-13] MEDS: MIRALAX PO SCH ×2 (10:13→22:00)
[2017-01-13] MEDS: NEURONTIN PO SCH (10:13)
[2017-01-13] MEDS: CENTRUM SILVER PO SCH (10:13)
[2017-01-13] MEDS: ICAR-C PO SCH ×2 (10:14→22:00)
[2017-01-13] MEDS: NEXIUM IV SCH ×2 (10:14→22:00)
[2017-01-13] MEDS: PREPARATION H OINT PR SCH ×2 (10:21→22:00)
[2017-01-13] MEDS: VANCOMYCIN 2,000 MG in NS 500 ML IV SCH (12:01)
--- NOTE | 2017-01-13 17:47 | PROGRESS NOTE ---
DATE: 01/13/2017 SUBJECTIVE: The patient is resting in bed. She has no complaints. OBJECTIVE: Vital Signs: Temperature 98.2 degrees, blood pressure 111/78, heart rate 95, respirations 15, O2 saturation is 97% on room air. General: This is a elderly, overweight female, lying in bed, in no acute distress. Head: Normocephalic, atraumatic. Heart: S1, S2. Normal. Regular rate and rhythm. Lungs: Clear to auscultation bilaterally. Abdomen: Positive bowel sounds. Soft, nontender, nondistended. Extremities: No edema. No cyanosis. No calf tenderness. LABS: Sodium 140, potassium 3.7, chloride 106, CO2 22, BUN 6, creatinine 0.9, glucose 97, calcium 9. ASSESSMENT AND PLAN: 1. Bacteremia secondary to Moraxella and Staphylococcus hemolyticus. Continue on Rocephin and vancomycin. Today is day 6 of therapy. The patient will need a total of 14 days of therapy. 2. Esophagitis duodenitis and gastritis. Continue on Carafate and Nexium. 3. Constipation. Continue on scheduled laxative therapy. 4. Chronic back pain. Continue on [place]. 5. Disposition. The patient will be discharged to rehab tomorrow. cc: Romana Pérez MD
[2017-01-13] MEDS: ROCEPHIN 2 GM/NS 2 GM/50 ML IVPB IV SCH (18:52)
[2017-01-13] MEDS: DULCOLAX PR SCH (22:00)
[2017-01-13] MEDS ORDERED: BLISTEX MEDICATED BERRY LIP BALM TOP PRN (23:28)
[2017-01-14] MEDS: CARAFATE LIQUID PO SCH ×2 (02:57→10:37)
--- NOTE | 2017-01-14 04:54 | PROGRESS NOTE ---
DATE: 01/12/2017 SUBJECTIVE: The patient is resting comfortably in bed. She has no complaints at this time. OBJECTIVE: Vital Signs: Temperature 97.9 degrees, blood pressure 108/68, heart rate 60, respirations 18, O2 saturation 97% on room air. General: This is an elderly female lying in bed in no acute distress. Head: Normocephalic, atraumatic. Heart: S1, S2. Normal. Regular rate and rhythm. Lungs: Equal air entry bilaterally, no crackles, no rales. Abdomen: Positive bowel sounds. Soft, nontender, nondistended. Extremities: No edema. No cyanosis. Neurologic: The patient has a flat affect but is alert and oriented x3. LABS: Reviewed. ASSESSMENT AND PLAN: 1. Bacteremia secondary to Moraxella and staphylococcus haemolyticus. Continue on vancomycin and Rocephin. Today is day 6 of 14. 2. Esophagitis, duodenitis and gastritis. Continue on Nexium and Carafate. 3. Chronic back pain. Continue on p.r.n. [place]. 4. Neuropathy. Continue on gabapentin. 5. Deep vein thrombosis prophylaxis. Continue with SCDs. 6. Disposition. The patient will be stable for discharge to rehab on Saturday after her PICC line is placed. cc: Romana Pérez MD
[2017-01-14] MEDS: VANCOMYCIN 2,000 MG in NS 500 ML IV SCH (06:15)
[2017-01-14] MEDS: ZOFRAN IV PRN ×2 (07:43→11:51)
[2017-01-14] MEDS: NORCO-7.5 PO PRN ×2 (07:43→11:51)
[2017-01-14] MEDS: CENTRUM SILVER PO SCH (10:37)
[2017-01-14] MEDS: NEXIUM IV SCH (10:37)
[2017-01-14] MEDS: NEURONTIN PO SCH (10:37)
[2017-01-14] MEDS: ICAR-C PO SCH (10:37)
[2017-01-14] MEDS: MIRALAX PO SCH (10:40)
[2017-01-14] MEDS: PREPARATION H OINT PR SCH (10:42)
--- NOTE | 2017-01-14 12:29 | DISCHARGE SUMMARY ---
ADMISSION DATE: 01/06/2017 DISCHARGE DATE: 01/14/2017 CONSULTATIONS: 1. Dr. Monterroso with gastroenterology. 2. Dr. Ortiz Westfall with infectious disease. PERTINENT PROCEDURES: 1. Abdomen and pelvis CT showed thickening joya of the distal esophagus suspicious for esophagitis. Esophageal neoplasm could not be excluded entirely. Nonspecific gaseous distention of the colon to the splenic flexure. No discrete colon obstructing lesion. No small bowel obstruction. No abscess. No free air. 2. EGD flexible sigmoidoscopy performed by Dr. Garza. 3. Abdominal x-ray showed mild gaseous distention of the colon, indication of excessive retained fecal debris in the colon. DISCHARGE DIAGNOSES: 1. Bacteremia secondary to Moraxella and Staphylococcus haemolyticus. 2. Severe esophagitis 3. Duodenitis 4. Erosive gastritis 5. Constipation 6. Chronic back pain 7. Neuropathy HOSPITAL COURSE: Ms. Bernard is a 51-year-old female with a past medical history of hypertension, asthma, previous CVA, who presented to the ED with complaints of nausea, vomiting, diarrhea, throwing up blood. She was seen at [facility]. She also had a CAT scan that showed thickening of the esophagus versus possibility of neoplasm. Due to the symptoms and lack of subspecialty care, she was transferred to [facility] for further evaluation and management. She was given antiemetics and pain control, placed on a PPI with a GI consult. Monitored her hemoglobin and hematocrit serially, started on IV antibiotics as well as obtained blood cultures. She underwent an EGD and flexible sigmoidoscopy with Dr. Garza that revealed severe esophagitis, gastritis and duodenitis. The patient will use Prilosec daily for 3 months and transition to Zantac. She has been counseled to quit smoking, avoid cocaine use, follow GERD reflux lifestyle changes. Preparation H daily rectal for 2 weeks for her external and internal hemorrhoids and increase her fiber intake to 25-30 g q.24 hours for her constipation as well as start on a multivitamin daily for her anemia. The patient's blood cultures also grew out a bacteremia for which Dr. Ortiz Westfall was consulted. The patient will be going to rehab to continue on a full course of IV antibiotics with Rocephin and vancomycin. She grew out Moraxella and Staphylococcus hemolyticus. She is on 7 days of her 14- day course of therapy. She is being discharged to rehab today. VITAL SIGNS: Temperature is 98.1 degrees, heart rate 77, respirations 16, blood pressure is 110/47, O2 sat is 96% on room air. DISCHARGE DIET: GI soft with Ensure. DISCHARGE MEDICATIONS: 1. Atenolol inhaler 2 puffs inhaled q.6 hours. 2. Rocephin 2 g IV q.24 hours. 3. Neurontin 100 mg p.o. q.a.m. 4. [place] 7.5/325, 1 each p.o. q.4 hours p.r.n. pain. 5. Icar C 1 each p.o. b.i.d. 6. Centrum multivitamin 1 each p.o. daily. 7. Prilosec 40 mg p.o. b.i.d. 8. MiraLAX 17 g p.o. daily. 9. Carafate 1 g p.o. q.6 hours. 10. Vancomycin 2 g IV q.18 hours. FOLLOWUP: The patient is being discharged to rehab today. She will follow up with Dr. Ortiz Westfall in 2 weeks as well as her primary care physician, Dr. Hinson, in 2 weeks and will follow up with her director of dementia operations as indicated. The patient will need to avoid smoking as well as avoid cocaine use. She will need to follow GERD lifestyle changes, increase her fiber intake to 25-30 g daily. She can return to the ED for any worsening of symptoms. DISCHARGE TIME: Greater than 30 minutes. Dictated by PREETI Rankin for Romana Pérez MD cc: Romana Pérez MD [facility]
--- NOTE | 2017-01-14 12:48 | PROGRESS NOTE ---
DATE: 01/14/2017 PRESENT ILLNESS: The patient has Staph hemolyticus and Moraxella bacteremia, the origin of which is uncertain to me. MEDICATIONS: This is day 8 of treatment with the combination of Rocephin and vancomycin. PHYSICAL EXAMINATION: Vital Signs: Temperature is 98.1 degrees pulse 77, respirations 14, blood pressure 110/47. General: This is a chronically ill-appearing, middle-aged female. She is in no acute distress. Lungs: Clear to auscultation. Cardiovascular: Heart rate was regular. Abdomen: Soft and nontender. Extremities: Patient has a PICC in her arm. The site is not erythematous or swollen. LAB AND X-RAYS: There is no new x-ray. The patient's creatinine yesterday was 0.9 with a GFR of greater than 60. The patient's last CBC showed a white count of 5,500, hemoglobin 11.9, and platelet count of 323,000. ASSESSMENT AND PLAN: Patient has bacteremia. She will need 6 more days of antibiotic therapy where she is going to the rehab facility. I have written these orders Rocephin 2 g IV every 24 hours and vancomycin 2 g IV every 24 hours. I will obtain a CBC and creatinine and a vancomycin trough level on 01/17/2017. After the antibiotics are done then I have ordered that the PICC should be removed. I am available to see the patient on a p.r.n. basis. The patient's comorbidities include ovarian cancer, peripheral neuropathy, and gastroesophageal reflux disease. cc: Ortiz Westfall MD
[2017-01-14 13:57] VITALS: BP 108/63
== END 2017-01-14 15:10 ==
LOC: P.ED 21:14 → SUATTDRO 01-06 02:45 → 4N 01-06 02:45
PROVIDERS: ATTEND Internal Medicine